=== PATIENT | male | born 1965 | race Caucasian/White ===

== ENCOUNTER → 2016-11-11 | Outpatient (CLI) | payer OTHER ==
[~2016-11-11] MED LIST: BACL20TA PO; CEPH500C PO; CHOL1CAP57 PO; CMD5 PO; DTR5 PO; LRS20 PO; MIRA1TAB3 PO; MULT-506 PO; NF656 TOP; NYST100010 TOP; OXYB5TAB74 PO; OXYC-57 PO; PRLSR20 PO; SIMV20TA2 PO; SULF800T23 PO; WARF5TAB7 PO; ZNTT/150 PO; [UNRECOGNIZED DRUG - OTHER]
[2016-11-11 12:24] LABS: BASO % 0.1 %; BASO ABS # 0.01 K/uL (0-0.2); COMPLETE YES; HEMATOCRIT 42.3 % (42-52); IG% 0.2 %; LYMPH % 24.7 %; LYMPH ABS # 2.39 K/uL (1.2-3.4); MEAN CELL VOLUME 93.2 fL (80-100); MEAN CORPUSCULAR HEMOGLOBIN 32.8 pg (25-34); MEAN CORPUSCULAR HGB CONC 35.2 g/dl (32-36); MONO % 6.9 %; NEUT % 65.1 %; PLATELET COUNT 239 K/uL (130-400); RED BLOOD COUNT 4.54 M/uL (4.7-6.1); WHITE BLOOD COUNT 9.68 K/uL (4.8-10.8)
[2016-11-11 12:38] LABS: INR 1.8 (0.9-1.1); PROTHROMBIN TIME (PATIENT) 19.7 SECONDS (9.0-12.0)
[2016-11-11 12:50] LABS: ALT/SGPT 34 U/L (12-78); AST/SGOT 14 U/L (15-37); BLOOD UREA NITROGEN 13 mg/dl (7-18); BUN/CREATININE RATIO 17.7 (10-20); CARBON DIOXIDE 25 mmol/L (21-32); CHLORIDE 106 mmol/L (98-107); CREATININE 0.71 mg/dl (0.60-1.40); GLUCOSE 79 mg/dl (70-99); POTASSIUM 3.9 mmol/L (3.5-5.1); SODIUM 140 mmol/L (136-145)
[2016-11-11 12:55] LABS: ALB/GLOB RATIO 1.1 (0.9-2); ALKALINE PHOSPHATASE 77 U/L (45-117); CHOLESTEROL 133 mg/dl (0-200); HDL CHOLESTEROL 44 mg/dl; LDL CHOLESTEROL CALCULATED 60 mg/dl; TRIGLYCERIDES 144 mg/dl (0-150); VERY LOW DENSITY LIPOPROT CALC 29 mg/dl
--- NOTE | 2016-11-15 12:19 | CODING QUERY MEDICAL NECESSITY ---
SUPPORTING DIAGNOSIS NEEDED A supporting diagnosis is required for the test/procedure performed on this patient in order for us to be reimbursed by the patient's insurance. Please provide a supporting diagnosis for the following test/procedure listed below next to the test name along with your signature. *If there is no additional diagnosis for this patient that would support the following test/procedure please document that below next to the test/procedure. Test(s)/Procedure(s) that require a supporting diagnosis: * VITAMIN D 25 HYDROXY DIAGNOSIS: * DOS: 11/11/16 Provider Signature: Date: Thank you Geena Scott Health Information Management Once completed, please kindly fax back to [phone] For questions please call [phone]
== END | disposition home or self-care (01) ==
LOC: C.LABBFT 11:02
PROVIDERS: ATTEND Internal Medicine
DX: E78.5 Hyperlipidemia, unspecified (principal); N31.9 Neuromuscular dysfunction of bladder, unspecified; Z12.5 Encounter for screening for malignant neoplasm of prostate; G82.20 Paraplegia, unspecified; Z11.59 Encounter for screening for other viral diseases; Z79.01 Long term (current) use of anticoagulants

== ENCOUNTER 2017-01-02 14:09 | Emergency (ER) | payer OTHER ==
[~2017-01-02] VITALS: Ht 167.6 cm; Wt 87.2 kg
[~2017-01-02 14:09] MED LIST changes: -BACL20TA PO; -CEPH500C PO; -MIRA1TAB3 PO; -NF656 TOP; -NYST100010 TOP; -OXYB5TAB74 PO; -OXYC-57 PO; -SULF800T23 PO; -WARF5TAB7 PO
[2017-01-02 14:23] VITALS: TEMP 36.7; Ht 167.6 cm; Wt 87.2 kg
[2017-01-02] MEDS ORDERED: WARF5TAB7 PO (14:46)
[2017-01-02] MEDS ORDERED: BACL20TA PO (14:46)
[2017-01-02] MEDS ORDERED: MIRA1TAB3 PO (14:46)
[2017-01-02 14:49] LABS: BASO % 0.1 %; BASO ABS # 0.01 K/uL (0-0.2); COMPLETE YES; EOS % 5.2 %; HEMATOCRIT 42.3 % (42-52); IG% 0.2 %; LYMPH % 29.4 %; LYMPH ABS # 2.64 K/uL (1.2-3.4); MEAN CELL VOLUME 91.4 fL (80-100); MEAN CORPUSCULAR HEMOGLOBIN 32.6 pg (25-34); MEAN CORPUSCULAR HGB CONC 35.7 g/dl (32-36); MEAN PLATELET VOLUME 9.9 fL (7.4-10.4); MONO % 8.2 %; NEUT % 56.9 %; PLATELET COUNT 237 K/uL (130-400); RED BLOOD COUNT 4.63 M/uL (4.7-6.1); WHITE BLOOD COUNT 8.98 K/uL (4.8-10.8)
--- NOTE | 2017-01-02 15:11 | DIAGNOSTIC IMAGING REPORT ---
ABDOMEN AND PELVIS CT WITHOUT CONTRAST CT DOSE: 708.72 mGy.cm HISTORY: Nephrocalcinosis. Flank flank pain low abdominal pain, indwelling Poley, prior stones TECHNIQUE: Multiaxial CT images of the abdomen and pelvis were performed without contrast. COMPARISON STUDY: 02/18/2012 FINDINGS: Lung bases are clear. Liver spleen and pancreas are unremarkable. Kidney show cortical scarring bilaterally but with moderate atrophic change of the left. Inferior vena caval filter is present. The prongs are extraluminal. This is unchanged. Bowel pattern is considered nonobstructive. Mcclure catheter is present within a collapsed bladder. There are multiple bladder calculi measuring from 1.2 to 1.7 cm. IMPRESSION: 1. Multiple bladder calculi. 2. Otherwise no acute process of the abdomen or pelvis. Electronically signed by: Adithya Vizcarra M.D. 01/02/2017 3:10 PM Dictated Date/Time: 01/02/2017 3:07 PM
[2017-01-02 15:15] LABS: BUN/CREATININE RATIO 15.8 (10-20); CREATININE 0.72 mg/dl (0.60-1.40); POTASSIUM 4.4 mmol/L (3.5-5.1)
[2017-01-02] MEDS ORDERED: SODIUM CHLORIDE 0.9% 1000ML 1,000 ML IV STA (15:27)
[2017-01-02 17:25] LABS: URINE APPEARANCE CLOUDY (CLEAR); URINE BILIRUBIN NEG (NEG); URINE COLOR YELLOW; URINE EPITHELIAL CELL AUTO >30 /lpf (0-5); URINE NITRITE POS (NEG); URINE PH 6.5 (4.5-7.5); UROBILINOGEN NEG (NEG)
[2017-01-02 17:33] LABS: MANUAL MICROSCOPIC REQUIRED? NO; REVIEW REQ? NO
[2017-01-02] MEDS ORDERED: CEFTRIAXONE SOD INJ 1 GM ADDVIAL IV STA (17:40)
[2017-01-02 17:56] LABS: PROTHROMBIN TIME (PATIENT) 22.1 SECONDS (9.0-12.0)
[2017-01-02] MEDS ORDERED: MoRPHine SULFATE 4 MG/ML 1 ML CARP\\VIAL IV STA (18:29)
[2017-01-02] MEDS ORDERED: ONDANSETRON INJ 2 MG/ML 2 ML VIAL IV STA (18:29)
[2017-01-02] MEDS ORDERED: CEPH500C PO (19:24)
[2017-01-02] MEDS ORDERED: OXYCODONE IR HOME PACK PO ONE (19:30)
[2017-01-02 21:10] VITALS: BP 123/75; PULSE 72; O2SAT 94
--- NOTE | 2017-01-02 22:00 | EMERGENCY ROOM VISIT NOTE ---
History Report prepared by Gabriela: Mingo Swenson Under the Supervision of: Dr. Pradeep Thomas M.D. First contact with patient: 14:28 Chief Complaint: ABDOMINAL PAIN Stated Complaint: ABD PAIN Nursing Triage Summary: Patient arrived via EMS. Patient c/o LLQ pain /pressure x 2 days, increases when he drinks and when sitting up in his wheelchair. Pt states he also gets sweaty when in his wc.Patient states his urine in his catheter has had a foul smell. Patient states almost two weeks ago when he changed his catheter the urine was bloody and there was dseciment in it for 3 or 4 hours, but then it cleared up. Hx bladder stones. History of Present Illness The patient is a 51 year old male who presents to the Emergency Room via EMS with complaints of persistent left-lower quadrant abdominal pain that started around 3 days ago. The patient has a catheter through his penis due to a C5/C6 spinal cord injury. The patient says that when sitting up, his pain is worsened and he sweats profusely. He states that he occasionally has been getting a "ringing headache", but he currently does not have one. He does have a history of bladder infections. The patient had his catheter changed 2 weeks ago, and he tries to get it changed every 4 weeks. He notes that he does get sediment buildup. The patient has a history of bladder stones. Pt denies LOC, fevers, chills, visual changes, neck pain, chest pain, breathing difficulties, nausea, vomiting, back pain, melena, hematochezia, numbness, weakness, lymphadenopathy, rash, or other complaints. Source of History: patient Onset: 3 days ago Position: abdomen (LLQ) Timing: other (persistent) Modifying Factors (Worsening): other (sitting up) Associated Symptoms: + diaphoresis, + headache Note: No other associated symptoms noted. Review of Systems See HPI for pertinent positives and negatives. A total of ten systems were reviewed and were otherwise negative. Past Medical & Surgical Medical Problems: (1) Autonomic Dysreflexia (2) Bladder Calculus Nec (3) Calculus Of Kidney (4) Cervical Disc Displacmnt (5) Depressive Disorder Nec (6) Hyperlipidemia Nec/Nos (7) Paraplegia Nos (8) Personal History Of Pulmonary Embolism (9) Quadriplegia, Unspecified (10) Renal Sclerosis Nos (11) Unilat Inguinal Hernia Family History No pertinent family history Social History Smoking Status: Current Every Day Smoker Drug Use: none Marital Status: in relationship Housing Status: lives with significant other Occupation Status: disabled Current/Historical Medications Scheduled Baclofen (Lioresal), 3 TAB PO BID Cephalexin Monohydrate (Keflex), 500 MG PO QID Cholecalciferol (Vitamin D3), BID Mirabegron (Myrbetriq Er), 50 MG PO DAILY Multivitamin (Multivitamin), 1 TAB PO DAILY Omeprazole (Prilosec), 20 MG PO BID Ranitidine (Zantac), 1 TAB PO BID Simvastatin (Zocor), 20 MG PO QPM Warfarin Sod (Jantoven), 5 MG PO DAILY Allergies Coded Allergies: No Known Allergies (Verified , 01/02/17) Physical Exam Vital Signs Date Time Temp Pulse Resp B/P Pulse Ox O2 Delivery O2 Flow Rate FiO2 01/02/17 21:10 72 16 123/75 94 01/02/17 18:55 67 14 123/84 92 Room Air 01/02/17 17:00 66 21 122/81 95 Room Air 01/02/17 15:58 68 01/02/17 15:27 81 16 118/76 96 Room Air 01/02/17 14:23 36.7 62 16 128/86 97 Room Air Physical Exam GENERAL: Awake, alert, well-appearing, in no distress HENT: Normocephalic, atraumatic. Oropharynx unremarkable. EYES: Normal conjunctiva. Sclera non-icteric. NECK: Supple. No nuchal rigidity. FROM. No JVD. RESPIRATORY: Clear to auscultation. CARDIAC: Regular rate, normal rhythm. Extremities warm and well perfused. Pulses equal. ABDOMEN: Soft, non-distended. Left lower abdominal tenderness. No rebound or guarding. No masses. RECTAL: Deferred. MUSCULOSKELETAL: Chest examination reveals no tenderness. The back is symmetrical on inspection without obvious abnormality. There is no CVA tenderness to palpation. No joint edema. LOWER EXTREMITIES: Calves are equal size bilaterally and non-tender. No edema. No discoloration. : Mcclure catheter in place. NEURO: Normal sensorium. Paralysis and sensory loss from inferior to umbilicus distally. SKIN: No rash or jaundice noted. Medical Decision & Procedures ER Provider Diagnostic Interpretation: CT: Radiology results as stated below per my review and radiologist interpretation ABDOMEN AND PELVIS CT WITHOUT CONTRAST CT DOSE: 708.72 mGy.cm HISTORY: Nephrocalcinosis. Flank flank pain low abdominal pain, indwelling Poley, prior stones TECHNIQUE: Multiaxial CT images of the abdomen and pelvis were performed without contrast. COMPARISON STUDY: 02/18/2012 FINDINGS: Lung bases are clear. Liver spleen and pancreas are unremarkable. Kidney show cortical scarring bilaterally but with moderate atrophic change of the left. Inferior vena caval filter is present. The prongs are extraluminal. This is unchanged. Bowel pattern is considered nonobstructive. Mcclure catheter is present within a collapsed bladder. There are multiple bladder calculi measuring from 1.2 to 1.7 cm. IMPRESSION: 1. Multiple bladder calculi. 2. Otherwise no acute process of the abdomen or pelvis. Electronically signed by: Adithya Vizcarra M.D. 01/02/2017 3:10 PM Dictated Date/Time: 01/02/2017 3:07 PM Laboratory Results 01/02/17 14:40 Red Blood Count 4.63, Mean Corpuscular Volume 91.4, Mean Corpuscular Hemoglobin 32.6, Mean Corpuscular Hemoglobin Concent 35.7, Mean Platelet Volume 9.9, Neutrophils (%) (Auto) 56.9, Lymphocytes (%) (Auto) 29.4, Monocytes (%) (Auto) 8.2, Eosinophils (%) (Auto) 5.2, Basophils (%) (Auto) 0.1, Neutrophils # (Auto) 5.10, Lymphocytes # (Auto) 2.64, Monocytes # (Auto) 0.74, Eosinophils # (Auto) 0.47, Basophils # (Auto) 0.01 01/02/17 14:40 Test 01/02/17 14:40 01/02/17 17:00 White Blood Count 8.98 K/uL (4.8-10.8) Red Blood Count 4.63 M/uL (4.7-6.1) Hemoglobin 15.1 g/dL (14.0-18.0) Hematocrit 42.3 % (42-52) Mean Corpuscular Volume 91.4 fL (80-100) Mean Corpuscular Hemoglobin 32.6 pg (25-34) Mean Corpuscular Hemoglobin Concent 35.7 g/dl (32-36) Platelet Count 237 K/uL (130-400) Mean Platelet Volume 9.9 fL (7.4-10.4) Neutrophils (%) (Auto) 56.9 % Lymphocytes (%) (Auto) 29.4 % Monocytes (%) (Auto) 8.2 % Eosinophils (%) (Auto) 5.2 % Basophils (%) (Auto) 0.1 % Neutrophils # (Auto) 5.10 K/uL (1.4-6.5) Lymphocytes # (Auto) 2.64 K/uL (1.2-3.4) Monocytes # (Auto) 0.74 K/uL (0.11-0.59) Eosinophils # (Auto) 0.47 K/uL (0-0.5) Basophils # (Auto) 0.01 K/uL (0-0.2) RDW Standard Deviation 43.3 fL (36.4-46.3) RDW Coefficient of Variation 13.0 % (11.5-14.5) Immature Granulocyte % (Auto) 0.2 % Immature Granulocyte # (Auto) 0.02 K/uL (0.00-0.02) Prothrombin Time 22.1 SECONDS (9.0-12.0) Prothromb Time International Ratio 2.0 (0.9-1.1) Anion Gap 6.0 mmol/L (3-11) Est Creatinine Clear Calc Drug Dose 122.7 ml/min Estimated GFR () 123.4 Estimated GFR (Non- 106.5 BUN/Creatinine Ratio 15.8 (10-20) Calcium Level 9.0 mg/dl (8.5-10.1) Total Bilirubin 0.5 mg/dl (0.2-1) Direct Bilirubin 0.1 mg/dl (0-0.2) Aspartate Amino Transf (AST/SGOT) 20 U/L (15-37) Alanine Aminotransferase (ALT/SGPT) 34 U/L (12-78) Alkaline Phosphatase 81 U/L (45-117) Total Protein 7.5 gm/dl (6.4-8.2) Albumin 3.9 gm/dl (3.4-5.0) Lipase 282 U/L (73-393) Urine Color YELLOW Urine Appearance CLOUDY (CLEAR) Urine pH 6.5 (4.5-7.5) Urine Specific [place] 1.020 (1.000-1.030) Urine Protein TRACE (NEG) Urine Glucose (UA) NEG (NEG) Urine Ketones TRACE (NEG) Urine Occult Blood 1+ (NEG) Urine Nitrite POS (NEG) Urine Bilirubin NEG (NEG) Urine Urobilinogen NEG (NEG) Urine Leukocyte Esterase LARGE (NEG) Urine WBC (Auto) >30 /hpf (0-5) Urine RBC (Auto) 5-10 /hpf (0-4) Urine Hyaline Casts (Auto) 5-10 /lpf (0-5) Urine Epithelial Cells (Auto) >30 /lpf (0-5) Urine Bacteria (Auto) 4+ (NEG) Laboratory results reviewed by me Medications Administered Medications (Trade) Dose Ordered Sig/Yoandy Route Start Time Stop Time Status Last Admin Dose Admin Sodium Chloride (Nss 1000ml) 1,000 ml @ 999 mls/hr Q1H1M STAT IV 01/02/17 15:27 01/02/17 16:27 DC 01/02/17 15:41 999 MLS/HR Ceftriaxone Sodium (Rocephin Inj) 1 gm NOW STAT IV 01/02/17 17:40 01/02/17 17:41 DC 01/02/17 18:20 1 GM Oxycodone HCl (Roxicodone Immediate Rel 5MG Home Pack) 1 homepack UD ONCE PO 01/02/17 19:30 01/02/17 19:31 DC 01/02/17 19:30 1 HOMEPACK ED Course 1434: The patient was evaluated in room B8. A complete history and physical exam was performed. 1527: Ordered NSS 1000 ml @ 999 mls/hr IV. 1621: I reevaluated the patient and she dos not want anything for pain. 1740: Ordered Rocephin Inj 1 gm IV. 174: I reevaluated the patient and she is doing pretty well. She is getting IV Rocephin. Discussed results and discharge instructions: She verbalized understanding and agreement. The patient is ready for discharge. 1829: Ordered Zofran Inj 4 mg IV, Morphine Sulfate Inj 4 mg IV 0: Ordered Roxicodone Immediate Rel 5MG Home Pack 1 homepack PO. Medical Decision Triage Nursing notes reviewed. The patient's presentation and history were concerning for abdominal pain and indwelling catheter. Etiologies such as appendicitis, diverticulitis, obstruction, inflammatory bowel disease, renal colic, PUD, biliary pathology, pancreatitis, mesenteric ischemia, aortic pathology, infections, genitourinary, UTI, perforated viscus, as well as others were entertained. The patient was evaluated. Clinically he was doing well. His symptoms had improved dramatically with that intervention. The patient was hydrated. His CBC, chemistry, LFTs and lipase were unremarkable. Urinalysis was concerning for infection. Urinalysis was obtained after his old catheter was removed and a fresh catheter was placed. The patient was then hydrated and urine specimen was obtained and sent to the lab. Because of this he was given IV Rocephin. The patient noted some discomfort and requested analgesia. He is given 4 mg of Zofran 4 mg of morphine. He felt better with this. The patient has had numerous urinary infections in the past. It appears that cephalexin should be adequate to cover his issues and will least likely interfere with his INR. Patient will need close outpatient follow-up. He feels very comfortable going home. If he worsens in any way she will come back to emergency department for reevaluation. By the evaluation outlined above other emergent etiologies such as those listed in the differential, as well as others, were deemed relatively unlikely. The patient was informed about the findings as listed above. All questions were answered and he was pleased with the treatment. Return instructions were outlined and the patient was discharged in stable condition. The patient was referred to his PCP and urologist for follow-up for a recheck of the current condition. The chart was completed utilizing [employer] Speech voice recognition software. Grammatical errors, random word insertions, pronoun errors, and incomplete sentences are an occasional consequence of this system due to software limitations, ambient noise, and hardware issues. Any formal questions or concerns about the content, text, or information contained within the body of this dictation should be directly addressed to the physician for clarification. Impression Primary Impression: Lower abdominal pain Additional Impression: UTI (urinary tract infection) Scribe Attestation The scribe's documentation has been prepared under my direction and personally reviewed by me in its entirety. I confirm that the note above accurately reflects all work, treatment, procedures, and medical decision making performed by me. Departure Information Dispostion Home / Self-Care Prescriptions Cephalexin Monohydrate (Keflex) 500 Mg Cap 500 MG PO QID, #28 CAP Prov: Pradeep Thomas MD 01/02/17 Referrals Talon Verduzco M.D. (PCP) Harlan Campbell MD Forms Call Back Authorization, HOME CARE DOCUMENTATION FORM, IMPORTANT VISIT INFORMATION Patient Instructions [facility] Additional Instructions ABDOMINAL PAIN INSTRUCTIONS: DO NOT drive, drink alcohol, operate machinery, or perform dangerous activities today. You were given medications in the ER that can affect your ability to safely function or operate a vehicle. Oxycodone (OxyIR) 5mg: Take 1-2 pills every four hours as needed for breakthrough pain. Avoid alcohol, operating machinery or dangerous equipment, working on ladders or roofs, DRIVING, or situations where being under the influence may be dangerous. It is recommended to use a stool softener such as Colace, 100mg twice daily while taking this medication to avoid constipation. Ibuprofen(Motrin, Advil) may be used for fever or pain. Use 600mg every six hours as needed. Take with food. Avoid using more than 2400mg in a 24 hour period. Do not use 2400mg per day for more than three consecutive days without physician direction. Prolonged inappropriate use can lead to stomach upset or ulcers. (AND/OR) Acetaminophen(Tylenol) may be used for fever or pain. Use 1000mg every six hours as needed. Avoid using more than 4000mg in a 24 hour period. Cephalexin(Keflex) 500mg: Take one pill four times daily for 7 days for your urine infection. All antibiotics can cause diarrhea. If this occurs and you feel worse or it does not resolve in 1-2 days follow up with your doctor or return to the Emergency Department as this could be signs of serious underlying problems. Any medication can cause an allergic reaction, stop the pills immediately and return to the ER for rash, hives, breathing difficulties, or swelling. Rest and drink plenty of fluids as tolerated. Slow sips of water or sports drinks are recommended instead of large amounts all at once. Continue current medications. Once your stomach is settled start with a clear liquid diet (jello, soup broth, etc.) and then advance as tolerated. You should avoid full, heavy meals for about 24 hrs from the time your symptoms resolved. Return to the ER immediately for worsening or persistent abdominal pain, vomiting, fevers, chest pains, difficulty breathing, black or bloody stools, worsening of your condition, or as needed. Follow up with your primary physician or urologist tomorrow for a recheck of your current condition. Problem Qualifiers
[2017-01-22] MEDS ORDERED: OXYC-57 PO (09:09)
[2017-01-22] MEDS ORDERED: NYST100010 TOP (09:09)
[2017-01-22] MEDS ORDERED: NF656 TOP (09:09)
[2017-02-04] MEDS ORDERED: OXYC-57 PO (13:10)
== END 2017-01-02 21:10 | disposition home or self-care (01) ==
LOC: EDBD 14:09 → C.EDB 14:10
DX: R10.32 Left lower quadrant pain (principal); N39.0 Urinary tract infection, site not specified; Z86.711 Personal history of pulmonary embolism; G82.20 Paraplegia, unspecified; E78.5 Hyperlipidemia, unspecified

== ENCOUNTER → 2017-01-23 | Outpatient (CLI) | payer OTHER ==
[~2017-01-23] MED LIST changes: +BACL20TA PO; +CEPH500C PO; -CMD5 PO; -DTR5 PO; -LRS20 PO; +MIRA1TAB3 PO; +NF656 TOP; +NYST100010 TOP; +OXYB5TAB74 PO; +OXYC-57 PO; +SULF800T23 PO; +WARF5TAB7 PO; -[UNRECOGNIZED DRUG - OTHER]
== END | disposition home or self-care (01) ==
LOC: C.LABSPEC 16:50
PROVIDERS: ATTEND Nurse Practitioner Family
DX: N39.0 Urinary tract infection, site not specified (principal)

== ENCOUNTER 2017-02-04 10:03 | Day surgery (SDC) | payer OTHER ==
[2017-01-22 09:12] VITALS: BMI 27.0
--- NOTE | 2017-01-22 09:46 | PAT Medication Instructions ---
Service Date Jan 22, 2017. Current Home Medication List Baclofen (Lioresal), 3 TAB PO BID Cholecalciferol (Vitamin D3), 1,000 UNITS PO BID Lidocaine (Lidoderm Patch 5%), 1 DOSE TOP PRN Mirabegron (Myrbetriq Er), 50 MG PO HS Multivitamin (Multivitamin), 1 TAB PO QAM Nystatin (Topical) (Nystop), 1 DOSE TOP BID PRN for RN Omeprazole (Prilosec), 20 MG PO BID Oxycodone/Acetaminophen 5MG/325MG (Percocet 5MG/325MG), 1-2 TABLETS PO Q4-6H PRN for Pain Ranitidine (Zantac), 1 TAB PO BID Simvastatin (Zocor), 20 MG PO QPM Warfarin Sod (Jantoven), 5 MG PO QPM Medication Instructions For Your Scheduled Surgery -Instructions per prescribing physician: Warfarin Sod (Jantoven), 5 MG PO QPM *Last dose to be 01/27/17* - Continue as directed: Lidocaine (Lidoderm Patch 5%), 1 DOSE TOP PRN - Hold the following medications 24 hours prior to surgery: Nystatin (Topical) (Nystop), 1 DOSE TOP BID PRN for RN - Hold the following medications the morning of surgery: Cholecalciferol (Vitamin D3), 1,000 UNITS PO BID Multivitamin (Multivitamin), 1 TAB PO QAM - Take the following medications the morning of surgery with a sip of water OTHERWISE NOTHING TO EAT OR DRINK AFTER MIDNIGHT: Ranitidine (Zantac), 1 TAB PO BID Baclofen (Lioresal), 3 TAB PO BID Omeprazole (Prilosec), 20 MG PO BID Oxycodone/Acetaminophen 5MG/325MG (Percocet 5MG/325MG), 1-2 TABLETS PO Q4-6H PRN for Pain (may take if needed up to 4 hours prior to surgery) - Take the following medications as scheduled the night before surgery: Ranitidine (Zantac), 1 TAB PO BID Baclofen (Lioresal), 3 TAB PO BID Omeprazole (Prilosec), 20 MG PO BID Cholecalciferol (Vitamin D3), 1,000 UNITS PO BID Simvastatin (Zocor), 20 MG PO QPM Mirabegron (Myrbetriq Er), 50 MG PO HS Oxycodone/Acetaminophen 5MG/325MG (Percocet 5MG/325MG), 1-2 TABLETS PO Q4-6H PRN for Pain If you have any questions please call us at [phone] or [phone] or [phone]
[2017-01-22 10:24] LABS: BASO % 0.1 %; BASO ABS # 0.01 K/uL (0-0.2); COMPLETE YES; EOS % 4.2 %; HEMATOCRIT 42.8 % (42-52); IG% 0.3 %; LYMPH % 29.5 %; LYMPH ABS # 2.31 K/uL (1.2-3.4); MEAN CELL VOLUME 92.6 fL (80-100); MEAN CORPUSCULAR HEMOGLOBIN 33.1 pg (25-34); MEAN CORPUSCULAR HGB CONC 35.7 g/dl (32-36); MEAN PLATELET VOLUME 10.6 fL (7.4-10.4); MONO % 6.9 %; PLATELET COUNT 231 K/uL (130-400); RED BLOOD COUNT 4.62 M/uL (4.7-6.1); WHITE BLOOD COUNT 7.84 K/uL (4.8-10.8)
--- NOTE | 2017-01-22 10:26 | DIAGNOSTIC IMAGING REPORT ---
TWO VIEW CHEST CLINICAL HISTORY: Preoperative examination. FINDINGS: AP and lateral chest radiographs are compared to study dated 05/16/2014. The AP view is significantly degraded by patient rotation. The heart is top normal for projection. The pulmonary vasculature is noncongested. Chronic interstitial thickening is unchanged. Emphysema is suspected. There is no airspace consolidation or pleural effusion. There is no pneumothorax. The skeletal structures appear osteopenic. Degenerative change is noted throughout the thoracic spine. Fusion hardware is noted in the lower cervical region. IMPRESSION: Suspect emphysema. There is no active disease in the chest. Electronically signed by: Denys House M.D. 01/22/2017 10:24 AM Dictated Date/Time: 01/22/2017 10:17 AM
[2017-01-22 10:51] LABS: MANUAL MICROSCOPIC REQUIRED? YES; URINE APPEARANCE CLOUDY (CLEAR); URINE BILIRUBIN NEG (NEG); URINE COLOR YELLOW; URINE NITRITE POS (NEG); UROBILINOGEN NEG (NEG)
[2017-01-22 10:56] LABS: BUN/CREATININE RATIO 18.1 (10-20); CALCIUM 8.8 mg/dl (8.5-10.1); CREATININE 0.71 mg/dl (0.60-1.40); POTASSIUM 4.2 mmol/L (3.5-5.1)
[2017-01-22 11:13] LABS: SULFASALICYLIC ACID NEG (NEG)
[2017-01-22 11:14] LABS: REVIEW REQ? NO
[2017-01-22 11:34] LABS: URINE BACTERIA 4+ (NEG); URINE WBC >30 /hpf (0-5)
[~2017-02-04] VITALS: Ht 167.6 cm; Wt 77.3 kg
[~2017-02-04 10:03] MED LIST changes: -CEPH500C PO; +CIPROFLOXACIN / D5W 400 MG IV SCH; +LACTATED RINGER'S 1000ML 1,000 ML IV SCH; +LACTATED RINGER'S 1000ML 500 ML IV ONE; -OXYB5TAB74 PO; -SULF800T23 PO
[2017-02-04 10:44] VITALS: BP 91/60; PULSE 67; TEMP 37.2; O2SAT 96; Ht 167.6 cm; Wt 77.3 kg
[2017-02-04 10:45] LABS: PARTIAL THROMBOPLASTIN RATIO 1.2; PROTHROMBIN TIME (PATIENT) 10.8 SECONDS (9.0-12.0)
[2017-02-04] MEDS ORDERED: ATROPINE SULFATE 0.1 MG/ML 5ML SYR IV PRN (11:15)
[2017-02-04] MEDS ORDERED: FENTANYL CITRATE INJ 50 MCG/1 ML 2 ML VIAL IV PRN (11:15)
[2017-02-04] MEDS ORDERED: EpHEDrine SULFATE INJ 50 MG/ML AMP IV PRN (11:15)
[2017-02-04] MEDS ORDERED: ONDANSETRON INJ 2 MG/ML 2 ML VIAL IV PRN (11:15)
[2017-02-04] MEDS ORDERED: DEXAMETHASONE SOD INJ 4 MG/ML VIAL ONE (11:16)
[2017-02-04] MEDS ORDERED: ONDANSETRON INJ 2 MG/ML 2 ML VIAL ONE (11:16)
[2017-02-04] MEDS ORDERED: PROPOFOL IV EMULSION 10 MG/ML 20 ML VIAL IV ONE (11:16)
[2017-02-04] MEDS ORDERED: LIDOCAINE HCL 2% 2 ML VIAL (20MG/ML) ONE (11:16)
[2017-02-04] MEDS ORDERED: MIDAZOLAM HCL 1 MG/ML 2ML VIAL ONE (11:16)
[2017-02-04] MEDS ORDERED: FENTANYL CITRATE INJ 50 MCG/1 ML 2 ML VIAL ONE ×2 (11:16→12:22)
--- NOTE | 2017-02-04 11:39 | History & Physical Bridge Note ---
H&P Re-Evaluation Bridge Note: I have examined the patient, reviewed the History & Physical and in the interval since the performance of the History & Physical I have noted the following changes of clinical significance: No changes noted
[2017-02-04] MEDS ORDERED: EpHEDrine SULFATE 50MG/5ML SYR ONE (12:27)
[2017-02-04] MEDS ORDERED: LABETALOL HCL IV 5 MG/ML 20ML IV ONE (13:04)
--- NOTE | 2017-02-04 13:09 | [facility] Post Operative Brief Note ---
Immediate Operative Summary Operative Date Feb 04, 2017. Pre-Operative Diagnosis Bladder Stone Post-Operative Diagnosis Same Procedure(s) Performed Cystolithopaxy Surgeon Dr Campbell Filler Room Attendant Surgeon(s) none Estimated Blood Loss 0ML Findings 4 bladder stones Specimens NONE PER SURGEON Drains 20 f love Anesthesia gen Complication(s) None Disposition Recovery Room / PACU
[2017-02-04] MEDS ORDERED: OXYC-57 PO (13:10)
--- NOTE | 2017-02-04 13:12 | Discharge Instructions ---
Discharge Instructions Date of Service Feb 04, 2017. Visit Reason for Visit: Bladder Stone Discharge Discharge Diagnosis / Problem: Bladder Stones Discharge Goals Goal(s): Therapeutic intervention Activity Recommendations Activity Limitations: resume your previous activity (take it easy today) Anesthesia . Post Anesthesia Instructions: If you have had General Anesthesia or IV Sedation: * Do not drive today. * Resume driving when surgeon permits. * Do not make important decisions or sign legal documents today. * Call surgeon for: 1. Temperature elevations greater than 101 degrees F. 2. Uncontrollable pain. 3. Excessive bleeding. 4. Persistent nausea and vomiting. 5. Medication intolerance (nausea, vomiting or rash). * For nausea and vomiting use only clear liquids such as: tea, soda, bouillon until nausea subsides, then gradually increase diet as tolerated. * If you have any concerns or questions, call your surgeon's office. If physician is unavailable and it is an emergency, call 911 or go to the nearest emergency room. . Diet Recommendations Recommended Home Diet: resume previous diet Procedures Procedures Performed: Cystolithopaxy Pending Studies Studies pending at discharge: no Medical Emergencies . Who to Call and When: Medical Emergencies: If at any time you feel your situation is an emergency, please call 911 immediately. . Non-Emergent Contact Non-Emergency issues call your: Urologist . . "Provider Documentation" section prepared by Harlan Campbell. [place] Drug Monitoring Program Search Results: patient reviewed within database
[2017-02-04] MEDS ORDERED: OXYCODONE/ACETAMINOPHEN 5-325 TAB PO PRN (13:15)
--- NOTE | 2017-02-04 13:44 | Anesthesiology Progress Note ---
Anesthesia Post Op Note Date & Time Feb 04, 2017 at 13:43 Vital Signs Pain Intensity: 0 Vital Signs Past 12 Hours Date Time Temp Pulse Resp B/P Pulse Ox O2 Delivery O2 Flow Rate FiO2 02/04/17 13:40 71 17 128/76 94 Room Air 02/04/17 13:30 72 19 111/76 96 Mask 10 02/04/17 13:20 71 13 122/75 95 Mask 10 02/04/17 13:10 36.3 69 11 112/75 96 Mask 10 02/04/17 10:44 37.2 67 18 91/60 96 Room Air Notes Mental Status: alert / awake / arousable, participated in evaluation Pt Amnestic to Procedure: Yes Nausea / Vomiting: adequately controlled Pain: adequately controlled Airway Patency, RR, SpO2: stable & adequate BP & HR: stable & adequate Hydration State: stable & adequate Anesthetic Complications: no major complications apparent
[2017-02-04 13:55] VITALS: BP 98/64; PULSE 73; TEMP 36.9; O2SAT 94
--- NOTE | 2017-02-04 13:58 | OPERATIVE REPORT ---
DATE OF OPERATION: 02/04/2017 PREOPERATIVE DIAGNOSIS: Bladder stones. POSTOPERATIVE DIAGNOSIS: Same. PROCEDURE: Cystolitholapaxy. FINDINGS: Cystoscopic exam revealed normal anterior urethra. Prostatic fossa was open. Bladder showed a lot of edema from stones and the patient's chronic indwelling Mcclure there were 4 stones in the bladder. SURGEON: Dr. Harlan Campbell. ANESTHESIA: General. DRAINS: 20-Iranian Mcclure catheter in bladder. COMPLICATIONS: None. SPECIMENS: Stone fragments, which were not sent to pathology. INDICATIONS: The patient is a 52-year-old paraplegic male who has a chronic indwelling Mcclure. He recently had some suprapubic pain and increase in his bladder spasms, workup including imaging studies revealed multiple bladder stones and he is being brought in for cystolitholapaxy. PROCEDURE: After the induction of an adequate general anesthetic and appropriate time-out, the patient was placed in the dorsal lithotomy position. Lower abdomen and genitalia were prepped with Hibiclens and draped in a sterile fashion. Using a 22-Iranian cystoscope, routine cystoscopic exam was performed with the above noted findings with the 30 and 70 degree lenses. Next, using a 24-Iranian resection sheath and 1000 micron fiber, the stones were broken into multiple small pieces. These were then evacuated from the bladder with an [employer] evacuator. Care was taken to avoid injury to the bladder itself. After removing all of the stone fragments, the bladder was reinspected with the 30 and 70 degree lenses. There were no stone fragments remaining. The patient's bladder was then filled. Resection scope and sheath were removed. A 20-Iranian Mcclure catheter inserted per urethra into the bladder and hooked to gravity drainage. All needle, sponge and instrument counts were correct at the end of the case. The patient tolerated the procedure well and went to the recovery room in stable condition. I attest to the content of the Intraoperative Record and any orders documented therein. Any exceptio ns are noted below.
[2017-02-04 14:25] VITALS: BP 121/79; PULSE 62; O2SAT 95
[2017-02-04 14:55] VITALS: BP 103/73; PULSE 70; O2SAT 95
[2017-07-18] MEDS ORDERED: DTR/5 PO (15:55)
== END 2017-02-04 15:15 | disposition home or self-care (01) ==
LOC: C.ACU 10:03
PROVIDERS: ATTEND Urology
DX: N21.0 Calculus in bladder (principal); K21.9 Gastro-esophageal reflux disease without esophagitis; E78.5 Hyperlipidemia, unspecified; F32.9 Major depressive disorder, single episode, unspecified; I26.99 Other pulmonary embolism without acute cor pulmonale; G82.20 Paraplegia, unspecified

== ENCOUNTER → 2017-04-11 | Outpatient (CLI) | payer OTHER ==
[~2017-04-11] MED LIST changes: +CEPH500C PO; -CIPROFLOXACIN / D5W 400 MG IV SCH; +DTR/5 PO; -LACTATED RINGER'S 1000ML 1,000 ML IV SCH; -LACTATED RINGER'S 1000ML 500 ML IV ONE; +SULF800T23 PO
[2017-04-11 12:10] LABS: INR 2.5 (0.9-1.1); PROTHROMBIN TIME (PATIENT) 27.6 SECONDS (9.0-12.0)
== END | disposition home or self-care (01) ==
LOC: C.LABBFT 07:50
PROVIDERS: ATTEND Internal Medicine
DX: I26.99 Other pulmonary embolism without acute cor pulmonale (principal)

== ENCOUNTER 2017-07-18 15:20 | Emergency (ER) | payer OTHER ==
[~2017-07-18] VITALS: Ht 167.6 cm; Wt 89.2 kg
[~2017-07-18 15:20] MED LIST changes: -CEPH500C PO; -DTR/5 PO; -SULF800T23 PO
[2017-07-18 15:27] VITALS: TEMP 36.8; Ht 167.6 cm; Wt 89.2 kg
[2017-07-18] MEDS ORDERED: SODIUM CHLORIDE 0.9% 500ML 500 ML IV STA (15:43)
--- NOTE | 2017-07-18 15:52 | EMERGENCY ROOM VISIT NOTE ---
History First contact with patient: 15:29 Chief Complaint: EDEMA TO EXTREMITY Stated Complaint: LEG EDEMA, AB PAIN History of Present Illness The patient is a 52 year old male who presents to the Emergency Room with complaints of left lower extremity redness and swelling for the last 2 days. The patient has a history of paraplegia. He also has a history of blood clots. He does however note and injury to the outside of his left foot during a wheel chair transfer. He denies any fever or chills. He has had a decreased appetite, which he associates with infection. He denies any chest pain or shortness of breath. Review of Systems 10 system review performed and negative unless noted in HPI or below Past Medical/Surgical History Medical Problems: (1) Autonomic Dysreflexia (2) Bladder Calculus Nec (3) Calculus Of Kidney (4) Cervical Disc Displacmnt (5) Depressive Disorder Nec (6) Hyperlipidemia Nec/Nos (7) Paraplegia Nos (8) Personal History Of Pulmonary Embolism (9) Quadriplegia, Unspecified (10) Renal Sclerosis Nos (11) Unilat Inguinal Hernia Family History No pertinent family history Social History Smoking Status: Current Every Day Smoker Drug Use: none Marital Status: in relationship Housing Status: lives with significant other Occupation Status: disabled Current/Historical Medications Scheduled Baclofen (Lioresal), 60 MG PO BID Cephalexin Monohydrate (Keflex), 500 MG PO QID Cholecalciferol (Vitamin D3), 1,000 UNITS PO BID Lidocaine (Lidoderm Patch 5%), 1 DOSE TOP PRN Omeprazole (Prilosec), 20 MG PO BID Oxybutynin Chloride (Ditropan), 10 MG PO BID Ranitidine (Zantac), 1 TAB PO BID Simvastatin (Zocor), 20 MG PO QPM Sulfa/Trimethoprim (Bactrim Ds 800MG/160MG), 1 TAB PO BID Warfarin Sod (Jantoven), 5 MG PO QPM Scheduled PRN Nystatin (Topical) (Nystop), 1 DOSE TOP BID PRN for RN Physical Exam Vital Signs Date Time Temp Pulse Resp B/P (MAP) Pulse Ox O2 Delivery O2 Flow Rate FiO2 07/18/17 18:41 68 18 107/65 96 Room Air 07/18/17 17:30 76 20 116/66 96 Room Air 07/18/17 15:31 66 07/18/17 15:27 36.8 68 18 105/70 94 Room Air Physical Exam VITALS: Vitals are noted on the nurse's note and reviewed by myself. Vital signs stable. GENERAL: 52-year-old male, in no acute distress, SKIN: 2 mm scab noted to the second toe on the left foot. No surrounding erythema.. HEAD: Normocephalic atraumatic. MOUTH: oral mucosa dry. NECK: S No JVD. HEART: Regular rate and rhythm without murmurs gallops or rubs. LUNGS: Clear to auscultation bilaterally without wheezes, rales or rhonchi. No accessory muscle use. ABDOMEN: Positive bowel sounds x 4.Soft, nontender, without organomegaly. No guarding or rebound tenderness. MUSCULOSKELETAL: +1 nonpitting edema noted in lower extremities left greater than right. Erythema noted over the left foot streaking anteriorly up the left serna to the knee. Distal pulses intact bilaterally. NEURO: Patient was alert and answering questions appropriately. No feeling in the lower extremities bilaterally. Some spastic spontaneous movement noted in the left lower extremity. Medical Decision & Procedures ER Provider Diagnostic Interpretation: Patient Name: NIKI CHOI Unit Number: [id number] Dictated: 07/18/171655 Transcribed: 07/18/171655 PBS Printed Date/Time: [~ rep prt dt]/[~ rep prt tm] [~ rep ct labl] - [~ rep ct ivnm] [facility] [place] [address] Dictated: 07/18/171655 Transcribed: 07/18/171655 PBS Printed Date/Time: [~ rep prt dt]/[~ rep prt tm] [~ rep ct labl] - [~ rep ct ivnm] VENOUS DOPPLER LWR EXT BILA CLINICAL HISTORY: 52 years-old Male presenting with BLE edema L>R. TECHNIQUE: Real-time grayscale and color and spectral Doppler ultrasound imaging of the veins of the bilateral lower extremities was performed. Compression and augmentation were also utilized. COMPARISON: None. FINDINGS: Right: Common femoral vein: Patent. Femoral vein: Patent. Greater saphenous vein: Patent. Popliteal vein: Patent. Calf veins: Limited visualization. Left: Common femoral vein: Patent. Femoral vein: Patent. Greater saphenous vein: Patent. Popliteal vein: Patent. Calf veins: Limited visualization. Other: None. IMPRESSION: No evidence of deep venous thrombosis. Electronically signed by: Dakota Montano M.D. 07/18/2017 4:57 PM Dictated Date/Time: 07/18/2017 4:56 PM The status of this report is Signed. Draft = Not yet reviewed or approved by Radiologist. Signed = Reviewed and approved by Radiologist. <AttendingPhy></AttendingPhy> <FamilyPhy>Talon Verduzco M.D.</FamilyPhy > <PrimaryPhy>Talon Verduzco M.D.</PrimaryPhy> <UnitNumber>[id number]</ UnitNumber> <VisitNumber>[id number]</VisitNumber> <PatientName>NIKI CHOI</PatientName> <DateOfBirth>1965</DateOfBirth> <Location>[facility]</Location > <ServiceDate>07/18/17</ServiceDate> <MNE>ESINDI</MNE> <OrderingPhy>Toña Law PA-C</OrderingPhy> <OrderingPhyMNE>f rep ord dr leach</OrderingPhyMNE> < DictatingPhyMNE>f rep dict dr leach</DictatingPhyMNE> <CCListMNE>f rep ct hany</ CCListMNE> <AdmittingPhyMNE>f pt admit dr leach</AdmittingPhyMNE> <AttendingPhyMNE >f pt attend dr leach</AttendingPhyMNE> <ConsultingPhyMNE>f pt consult dr leach</ConsultingPhyMNE> <FamilyPhyMNE>f pt fam dr leach</FamilyPhyMNE> <OtherPhyMNE>f pt other dr leach</OtherPhyMNE> < PrimaryPhyMNE>f pt prim care dr leach</PrimaryPhyMNE> <ReferringPhyMNE>f pt referring dr leach</ReferringPhyMNE> LEFT FOOT MIN 3 VIEWS ROUTINE CLINICAL HISTORY: Left foot pain and bruising. COMPARISON: None. DISCUSSION: The bones are markedly osteopenic. There is a mild hallux valgus deformity. No acute fractures are visualized. Mild degenerative changes are evident. There is mild dorsal soft tissue swelling. IMPRESSION: Severe osteopenia. No acute fractures or subluxations identified. Electronically signed by: Jason Nelson M.D. 07/18/2017 5:22 PM Dictated Date/Time: 07/18/2017 5:22 PM The status of this report is Signed. Draft = Not yet reviewed or approved by Radiologist. Signed = Reviewed and approved by Radiologist. <AttendingPhy></AttendingPhy> <FamilyPhy>Talon Verduzco M.D.</FamilyPhy > <PrimaryPhy>Talon Verduzco M.D.</PrimaryPhy> <UnitNumber>[id number]</ UnitNumber> <VisitNumber>[id number]</VisitNumber> <PatientName>NIKI CHOI</PatientName> <DateOfBirth>1965</DateOfBirth> <Location>C[facility]ED[facility]</Location > <ServiceDate>07/18/17</ServiceDate> <MNE>ESINDI</MNE> <OrderingPhy>Toña Law PA-C</OrderingPhy> <OrderingPhyMNE>f rep ord dr leach</OrderingPhyMNE> < DictatingPhyMNE>f rep dict dr leach</DictatingPhyMNE> <CCListMNE>f rep ct daysie</ CCListMNE> <AdmittingPhyMNE>f pt admit dr leach</AdmittingPhyMNE> <AttendingPhyMNE >f pt attend dr leach</AttendingPhyMNE> <ConsultingPhyMNE>f pt consult dr leach</ConsultingPhyMNE> <FamilyPhyMNE>f pt fam dr leach</FamilyPhyMNE> <OtherPhyMNE>f pt other dr leach</OtherPhyMNE> < PrimaryPhyMNE>f pt prim care dr leach</PrimaryPhyMNE> Laboratory Results 07/18/17 14:47 Red Blood Count 4.46, Mean Corpuscular Volume 91.7, Mean Corpuscular Hemoglobin 33.0, Mean Corpuscular Hemoglobin Concent 35.9, Mean Platelet Volume 10.7, Neutrophils (%) (Auto) 70.5, Lymphocytes (%) (Auto) 20.4, Monocytes (%) (Auto) 5.6, Eosinophils (%) (Auto) 3.2, Basophils (%) (Auto) 0.1, Neutrophils # (Auto) 8.48, Lymphocytes # (Auto) 2.45, Monocytes # (Auto) 0.67, Eosinophils # (Auto) 0.39, Basophils # (Auto) 0.01 07/18/17 14:47 Test 07/18/17 14:47 07/18/17 16:15 White Blood Count 12.03 K/uL (4.8-10.8) Red Blood Count 4.46 M/uL (4.7-6.1) Hemoglobin 14.7 g/dL (14.0-18.0) Hematocrit 40.9 % (42-52) Mean Corpuscular Volume 91.7 fL (80-100) Mean Corpuscular Hemoglobin 33.0 pg (25-34) Mean Corpuscular Hemoglobin Concent 35.9 g/dl (32-36) Platelet Count 276 K/uL (130-400) Mean Platelet Volume 10.7 fL (7.4-10.4) Neutrophils (%) (Auto) 70.5 % Lymphocytes (%) (Auto) 20.4 % Monocytes (%) (Auto) 5.6 % Eosinophils (%) (Auto) 3.2 % Basophils (%) (Auto) 0.1 % Neutrophils # (Auto) 8.48 K/uL (1.4-6.5) Lymphocytes # (Auto) 2.45 K/uL (1.2-3.4) Monocytes # (Auto) 0.67 K/uL (0.11-0.59) Eosinophils # (Auto) 0.39 K/uL (0-0.5) Basophils # (Auto) 0.01 K/uL (0-0.2) RDW Standard Deviation 43.5 fL (36.4-46.3) RDW Coefficient of Variation 12.9 % (11.5-14.5) Immature Granulocyte % (Auto) 0.2 % Immature Granulocyte # (Auto) 0.03 K/uL (0.00-0.02) Anion Gap 4.0 mmol/L (3-11) Est Creatinine Clear Calc Drug Dose 126.2 ml/min Estimated GFR () 124.0 Estimated GFR (Non- 107.0 BUN/Creatinine Ratio 10.1 (10-20) Calcium Level 8.9 mg/dl (8.5-10.1) Total Bilirubin 0.4 mg/dl (0.2-1) Aspartate Amino Transf (AST/SGOT) 17 U/L (15-37) Alanine Aminotransferase (ALT/SGPT) 26 U/L (12-78) Alkaline Phosphatase 88 U/L (45-117) Total Protein 7.3 gm/dl (6.4-8.2) Albumin 3.8 gm/dl (3.4-5.0) Globulin 3.5 gm/dl (2.5-4.0) Albumin/Globulin Ratio 1.1 (0.9-2) Urine Color YELLOW Urine Appearance TURBID (CLEAR) Urine pH 5.5 (4.5-7.5) Urine Specific [place] 1.016 (1.000-1.030) Urine Protein 1+ (NEG) Urine Glucose (UA) NEG (NEG) Urine Ketones NEG (NEG) Urine Occult Blood 3+ (NEG) Urine Nitrite POS (NEG) Urine Bilirubin NEG (NEG) Urine Urobilinogen NEG (NEG) Urine Leukocyte Esterase LARGE (NEG) Urine WBC (Auto) >30 /hpf (0-5) Urine RBC (Auto) >30 /hpf (0-4) Urine Hyaline Casts (Auto) 0 /lpf (0-5) Urine Epithelial Cells (Auto) 10-20 /lpf (0-5) Urine Bacteria (Auto) 4+ (NEG) Urine Crystals See comments (NONE PRSENT) Urine Pathogenic Casts /lpf (0) Urine Yeast (Auto) (NONE PRSENT) Medications Administered Medications (Trade) Dose Ordered Sig/Yoandy Route Start Time Stop Time Status Last Admin Dose Admin Sodium Chloride 500 ml @ 999 mls/hr Q31M STAT IV 07/18/17 15:43 07/18/17 16:13 DC 07/18/17 15:56 999 MLS/HR Ceftriaxone Sodium (Rocephin Inj) 1 gm NOW STAT IV 07/18/17 17:38 07/18/17 17:39 DC 07/18/17 17:58 1 GM Trimethoprim/ Sulfamethoxazole (Septra Ds 800/ 160MG Tab) 1 tab NOW ONCE PO 07/18/17 18:15 07/18/17 18:16 DC 07/18/17 18:32 1 TAB ED Course Patient was seen and examined Vital signs including blood pressure were reviewed medications list was verified with patient Labs were obtained, and a saline lock was established The patient was hydrated with 500 mL of normal saline Imaging was performed and reviewed The patient was reassessed and resting comfortable. We discussed the results of his workup. He was given 1 dose of Rocephin 1 g IV The patient was also seen and evaluated by my supervising physician, Dr. Heath I reviewed discharge instructions the patient. They voiced understanding and had no further questions. Medical Decision Differential diagnosis: DVT, cellulitis, sepsis, contusion, fracture This patient is a 42-year-old male with a history of paraplegia presented to the emergency department with left lower extremity swelling. He did have a fair amount of erythema to the foot and the anterior serna consistent with cellulitis. His vital signs are stable. He is not septic. He does have a mild leukocytosis. Ultrasound was negative for DVT. X-rays were negative for fracture. The patient also appears to have a urinary tract infection. He has a chronic indwelling Mcclure catheter. I reviewed his old cultures, which grew Escherichia coli. The patient was given 1 dose of Rocephin in the emergency department in addition to Bactrim to cover for MRSA. He was discharged home with a course of Keflex and Bactrim. I advised him to follow-up with his primary care physician within the next 3 days for recheck. He agrees to return to the emergency department with any new or worsening symptoms such as fever or increased redness or swelling This chart was completed in part utilizing [employer]_ Speech Voice Recognition software. Attempts were made to minimize the grammatical errors, random word insertions, pronoun errors and incomplete sentences. Any formal questions or concerns about the content, text or information contained within the body of this dictation should be directly addressed to the provider for clarification. Medication Reconcilliation Current Medication List: was personally reviewed by me Blood Pressure Screening Patient's blood pressure: Normal blood pressure Impression Primary Impression: Cellulitis Additional Impression: UTI (urinary tract infection) Departure Information Dispostion Home / Self-Care Condition GOOD Prescriptions Sulfa/Trimethoprim (Bactrim Ds 800MG/160MG) Tab 1 TAB PO BID for 7 Days, #14 TAB Prov: Toña Law PA-C 07/18/17 Cephalexin Monohydrate (Keflex) 500 Mg Cap 500 MG PO QID for 7 Days, #28 CAP Prov: Toña Law PA-C 07/18/17 Referrals Talon Verduzco M.D. (PCP) Patient Instructions ED Cellulitis Ch, My [facility] Additional Instructions You were treated in the emergency department today for cellulitis of the lower portion of your left leg and also urinary tract infection. Please finish the entire course of antibiotics. Please take a daily probiotic that can be found [id number] while on the antibiotics. Please follow-up with Dr. Verduzco early next week for a recheck. Return to the emergency department if you have any of the following symptoms: -Fever -Increased redness or swelling of the leg Problem Qualifiers
[2017-07-18] MEDS ORDERED: OXYB5TAB74 PO (15:55)
[2017-07-18 15:59] LABS: BASO % 0.1 %; BASO ABS # 0.01 K/uL (0-0.2); COMPLETE YES; EOS % 3.2 %; HEMATOCRIT 40.9 % (42-52); IG% 0.2 %; LYMPH % 20.4 %; LYMPH ABS # 2.45 K/uL (1.2-3.4); MEAN CELL VOLUME 91.7 fL (80-100); MEAN CORPUSCULAR HGB CONC 35.9 g/dl (32-36); MEAN PLATELET VOLUME 10.7 fL (7.4-10.4); MONO % 5.6 %; NEUT % 70.5 %; PLATELET COUNT 276 K/uL (130-400); RED BLOOD COUNT 4.46 M/uL (4.7-6.1); WHITE BLOOD COUNT 12.03 K/uL (4.8-10.8)
[2017-07-18 16:09] LABS: BUN/CREATININE RATIO 10.1 (10-20); CALCIUM 8.9 mg/dl (8.5-10.1); CREATININE 0.7 mg/dl (0.60-1.40); POTASSIUM 3.7 mmol/L (3.5-5.1)
[2017-07-18 16:11] LABS: ALB/GLOB RATIO 1.1 (0.9-2)
[2017-07-18 16:30] LABS: URINE APPEARANCE TURBID (CLEAR); URINE BILIRUBIN NEG (NEG); URINE COLOR YELLOW; URINE NITRITE POS (NEG); URINE PH 5.5 (4.5-7.5); URINE SPECIFIC GRAVITY 1.016 (1.000-1.030); UROBILINOGEN NEG (NEG)
[2017-07-18 16:34] LABS: MANUAL MICROSCOPIC REQUIRED? NO; REVIEW REQ? YES
--- NOTE | 2017-07-18 16:58 | DIAGNOSTIC IMAGING REPORT ---
VENOUS DOPPLER LWR EXT BILA CLINICAL HISTORY: 52 years-old Male presenting with BLE edema L>R. TECHNIQUE: Real-time grayscale and color and spectral Doppler ultrasound imaging of the veins of the bilateral lower extremities was performed. Compression and augmentation were also utilized. COMPARISON: None. FINDINGS: Right: Common femoral vein: Patent. Femoral vein: Patent. Greater saphenous vein: Patent. Popliteal vein: Patent. Calf veins: Limited visualization. Left: Common femoral vein: Patent. Femoral vein: Patent. Greater saphenous vein: Patent. Popliteal vein: Patent. Calf veins: Limited visualization. Other: None. IMPRESSION: No evidence of deep venous thrombosis. Electronically signed by: Dakota Montano M.D. 07/18/2017 4:57 PM Dictated Date/Time: 07/18/2017 4:56 PM
--- NOTE | 2017-07-18 17:24 | DIAGNOSTIC IMAGING REPORT ---
LEFT FOOT MIN 3 VIEWS ROUTINE CLINICAL HISTORY: Left foot pain and bruising. COMPARISON: None. DISCUSSION: The bones are markedly osteopenic. There is a mild hallux valgus deformity. No acute fractures are visualized. Mild degenerative changes are evident. There is mild dorsal soft tissue swelling. IMPRESSION: Severe osteopenia. No acute fractures or subluxations identified. Electronically signed by: Jason Nelson M.D. 07/18/2017 5:22 PM Dictated Date/Time: 07/18/2017 5:22 PM
[2017-07-18] MEDS ORDERED: CEFTRIAXONE SOD INJ 1 GM ADDVIAL IV STA (17:38)
[2017-07-18] MEDS ORDERED: SULFAMETHOXAZOLE/TRIMETHOPRIM DS 800/160MG TAB PO ONE (18:15)
[2017-07-18] MEDS ORDERED: CEPH500C PO (18:16)
[2017-07-18] MEDS ORDERED: SULF800T23 PO (18:16)
[2017-07-18 18:41] VITALS: BP 107/65; PULSE 68; O2SAT 96
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
== END 2017-07-18 19:26 | disposition home or self-care (01) ==
LOC: EDBD 15:20 → C.EDB 15:22
DX: L03.116 Cellulitis of left lower limb (principal); N39.0 Urinary tract infection, site not specified; G82.20 Paraplegia, unspecified; G90.4 Autonomic dysreflexia; M50.20 Other cervical disc displacement, unspecified cervical region; F32.9 Major depressive disorder, single episode, unspecified; E78.5 Hyperlipidemia, unspecified; N26.9 Renal sclerosis, unspecified; K40.90 Unilateral inguinal hernia, without obstruction or gangrene, not specified as recurrent; F17.200 Nicotine dependence, unspecified, uncomplicated; Z86.711 Personal history of pulmonary embolism; Z79.01 Long term (current) use of anticoagulants; Z96.0 Presence of urogenital implants

== ENCOUNTER → 2017-12-11 | Outpatient (CLI) | payer OTHER ==
[~2017-12-11] MED LIST changes: +DTR/5 PO; -MIRA1TAB3 PO; -MULT-506 PO; -OXYC-57 PO; +RANI150T85 PO; -ZNTT/150 PO
== END | disposition home or self-care (01) ==
LOC: C.LABBFT 10:36
PROVIDERS: ATTEND Internal Medicine
DX: E78.5 Hyperlipidemia, unspecified (principal); Z12.5 Encounter for screening for malignant neoplasm of prostate

== ENCOUNTER → 2018-06-03 | Outpatient (CLI) | payer OTHER | END | disposition home or self-care (01) | LOC: C.LABBFT 09:15 | PROVIDERS: ATTEND Internal Medicine | DX: N39.0 Urinary tract infection, site not specified (principal) ==

== ENCOUNTER 2023-03-31 20:44 | Inpatient (IN) ==
[2023-03-31 21:31] LABS: Basophils # (auto) 0.03 K/uL (0-0.2); Basophils % (auto) 0.2 %; Hematocrit (blood only) 43.5 % (42.0-52.0); Hemoglobin 14.6 g/dl (14.0-18.0); Immature Granulocytes # (auto) 0.04 K/uL (0.01-0.20); Immature Granulocytes % (auto) 0.3 %; Lymphocytes # (auto) 1.46 K/uL (1.2-3.4); Lymphocytes % (auto) 10.5 %; Mean Corpuscular Hemoglobin 32.4 pg (25.0-34.0); Mean Corpuscular Hgb Conc 33.6 g/dL (32.0-36.0); Mean Corpuscular Volume 96.7 fL (80.0-100.0); Monocytes # (auto) 0.92 K/uL (0.11-0.59); Monocytes % (auto) 6.6 %; Neutrophils # (auto) 11.44 K/uL (1.40-6.50); Neutrophils % (auto) 82.4 %; Platelet Count 264 K/uL (130-400); RDW Coefficient of Variation 13.7 % (11.5-14.5); RDW Standard Deviation 48.8 fL (36.4-46.3); White Blood Count 13.89 K/ul (4.8-10.8)
[2023-03-31 21:44] LABS: Albumin Globulin Ratio 1.5 (0.9-2); Albumin Level 4.5 gm/dl (3.4-5.0); BUN Creatinine Ratio 15.2 (10-20); Bilirubin,Total 0.5 mg/dl (0.2-1.0); Creatinine Clr Calc Pharmacy 74.2 ml/min; Est GFR (African American) 95.5 ml/min; Est GFR (Non-African American) 82.4 ml/min; Magnesium 1.5 mg/dl (1.7-2.4); Potassium 4.5 mmol/L (3.5-5.1); Total Protein 7.5 gm/dl (6.0-8.3)
[2023-03-31] MEDS ORDERED: SODIUM CHLORIDE 0.9% 1000ML 1,000 ML IV ONE (21:46)
[2023-03-31] MEDS ORDERED: ACETAMINOPHEN 1,000 MG/100 ML VIAL IV STA (21:46)
[2023-03-31] MEDS ORDERED: ONDANSETRON INJ 2 MG/ML 2 ML VIAL IV STA (21:46)
[2023-03-31] MEDS ORDERED: MAGNESIUM SULFATE / D5W 1 GM/100 ML BAG IV STA (21:47)
[2023-03-31] MEDS ORDERED: PIPERACILLIN/TAZOBACTAM 4.5 GM/120 ML BAG IV ONE (21:48)
[2023-03-31 22:00] LABS: INR 1.1 (0.9-1.1); Partial Thromboplastin Ratio 1.2; Partial Thromboplastin Time 34.7 Seconds (21.0-31.0); Prothrombin Time 12.1 Seconds (9.0-12.0)
[2023-03-31] MEDS ORDERED: DEXTROSE 50% 50 ML SYRINGE IV ONE (22:12)
--- NOTE | 2023-03-31 22:12 | Emergency Department Note ---
History of Present Illness General Chief complaint: Urinary Symptoms Time Seen by Provider: 03/31/23 21:27 History of Present Illness This 58-year-old male presents to the ER for worsening abdominal pain fever, ch ills nausea and vomiting it was here the other day and diagnosed with a UTI that has a neurogenic bladder. Patient states he is now vomiting and feels much more sick. He had a low-grade fever. Patient denies chest pain, dyspnea, cough, congestion, diarrhea. Home Medications Medication Instructions Recorded Confirmed Type cholecalciferol (vitamin D3) 25 2,000 unit PO QAM 06/08/19 03/28/23 History mcg (1,000 unit) capsule (Vitamin D3) baclofen 20 mg tablet 60 mg PO BID #540 tabs 06/17/22 03/28/23 Rx oxybutynin chloride 5 mg tablet 10 mg PO BID #360 tabs 06/17/22 03/28/23 Rx omeprazole 40 mg capsule,delayed 40 mg PO BID #180 caps 07/22/22 03/28/23 Rx release gabapentin 300 mg capsule 300 mg PO Q12H #60 caps 08/29/22 03/28/23 Rx simvastatin 20 mg tablet 20 mg PO HS #90 tabs 10/10/22 03/28/23 Rx catheter #2 ea 11/01/22 03/10/23 Rx diaper,brief,adult,disposable #150 ea 11/01/22 03/10/23 Rx (Depend Underwear For Men Large-Extra Large) drainage bag (Curity Bedside #2 ea 11/01/22 03/10/23 Rx Drainage Bag) incontinence pad, liner, disp #60 ea 11/01/22 03/10/23 Rx (Total Care Underpads) urinary bag (Bardia Urinary #2 ea 11/01/22 03/10/23 Rx Drainage Bag) urinary bag accessories (Extension #2 ea 11/01/22 03/10/23 Rx Tubing w-Connector [facility]) latex gloves (Latex Gloves, Large) #250 ea 11/26/22 03/10/23 Rx famotidine 20 mg tablet (Pepcid) 20 mg PO BID #180 tabs 12/03/22 03/28/23 Rx apixaban 5 mg tablet (Eliquis) 5 mg PO BID #60 tabs 03/10/23 03/28/23 Rx prostate complete 1 tab PO HS 03/10/23 03/28/23 History amoxicillin 875 mg-potassium 1 tab PO BID #14 tabs 03/28/23 Rx clavulanate 125 mg tablet magnesium oxide 500 mg tablet 500 mg PO QAM 03/28/23 03/28/23 History oxycodone 5 mg tablet 5 mg PO Q8H PRN pain #6 tabs 03/28/23 Rx Allergies Allergy/AdvReac Type Severity Reaction Status Date / Time No Known Allergies Allergy Verified 03/28/23 16:36 Past Med/Surg History Medical History Acute hemorrhoid Bladder stones HX Deep vein thrombosis 1991 Fusion of spine LUMBAR ([facility] GERD (gastroesophageal reflux disease) Ramiro filter in place 1991 [place] History of DVT (deep vein thrombosis) History of gastrostomy tube placement Hyperlipidemia Indwelling urinary catheter present Insomnia Nephrolithiasis Neurogenic bladder 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 Spinal cord injury JUNE 1992 Surgical History History of cystoscopy History of surgery "RT/LEFT HAMSTRING AND HIP RELEASES" History of tooth extraction History of tracheostomy Family History Father CHF (congestive heart failure) Mother Diabetes Brother Hypertension Dyslipidemia Diabetes Sister Psychiatric disorder Social History Smoking Status: Never smoker Tobacco Type: Cigarettes Age Started Using Tobacco: 15; packs per day: 1; Cigarettes Per Day: 10-20 CIG DAILY; Second Hand Exposure: No; Do You Dip or Chew Tobacco: No; Hx Alcohol Use: Yes (History of alcohol abuse. Quit approximately 1993. ) Alcohol type: beer Alcohol Intake Frequency: 2-4 x/Month Hx Substance Use: Yes (History of marijuana use-quit about 2019) Prescribed Medications: Marijuana Preferred Language: Nepali Communication Ability: Effective Hearing Ability: Normal Environmental Sustainability Manager Required: No Beliefs That Will Affect Care: None marital status: Single Current Living Situation: Significant Other current occupational status: disabled Feels Safe at Home: Yes Childhood Exposure to Second-Hand Smoke: Yes Diet: regular caffeine: Yes Dental Care, Regularly: No Physical Activity Frequency: Does not Exercise Physical Activity Frequency Comment: physically disabled Seatbelt Use: always Sunscreen Use: Yes Assistive Devices: Denture - Lower, Slide Board and Wheelchair Review of Systems A total of 10 systems reviewed and were otherwise negative Physical Exam Vital Signs Vital Signs - 24 hr 03/31/23 21:02 03/31/23 21:05 03/31/23 21:05 Temperature 36.9 C 36.9 C Temperature Source Oral Oral Pulse Rate 107 H 94 H Pulse Rate [Apical] 96 H Pulse Rhythm [Apical] Regular Respiratory Rate 20 20 Respiratory Effort / Characteristics Non-Labored Spontaneous Non-Labored Spontaneous Respiratory Depth Normal Normal Respiratory Pattern Regular Regular Blood Pressure 99/80 L Blood Pressure [Right Arm] 99/80 L Blood Pressure Mean 86 Blood Pressure Mean [Right Arm] 86 Blood Pressure Position [Right Arm] Lying Pulse Oximetry 96 95 Oxygen Delivery Method Room Air Nasal Cannula Oxygen Flow Rate 2 Sepsis Recent Fever Within 48 Hours Yes Sepsis New/Unexplained Change in Mental Status No Sepsis Action Taken by Nursing No Action Required 03/31/23 21:05 03/31/23 22:30 03/31/23 22:30 Temperature Temperature Source Pulse Rate 84 Pulse Rate [Apical] Pulse Rhythm [Apical] Respiratory Rate 23 Respiratory Effort / Characteristics Respiratory Depth Respiratory Pattern Blood Pressure 94/59 L Blood Pressure [Right Arm] Blood Pressure Mean 65 Blood Pressure Mean [Right Arm] Blood Pressure Position [Right Arm] Pulse Oximetry 96 97 Oxygen Delivery Method Nasal Cannula Oxygen Flow Rate 2 Sepsis Recent Fever Within 48 Hours Sepsis New/Unexplained Change in Mental Status Sepsis Action Taken by Nursing 03/31/23 23:08 04/01/23 00:30 Temperature Temperature Source Pulse Rate Pulse Rate [Apical] 84 86 Pulse Rhythm [Apical] Respiratory Rate 18 14 Respiratory Effort / Characteristics Respiratory Depth Normal Normal Respiratory Pattern Blood Pressure Blood Pressure [Right Arm] 96/64 L 99/68 L Blood Pressure Mean Blood Pressure Mean [Right Arm] 74 78 Blood Pressure Position [Right Arm] Pulse Oximetry 97 91 Oxygen Delivery Method Room Air Room Air Oxygen Flow Rate Sepsis Recent Fever Within 48 Hours Sepsis New/Unexplained Change in Mental Status Sepsis Action Taken by Nursing VITALS: Vitals are noted on the nurse's note and reviewed by myself. Vital signs reviewed. GENERAL: White male vomiting, in no acute distress, nondiaphoretic, well- developed well-nourished. SKIN: The skin was without rashes, erythema, edema, or bruising. There is no tenting of the skin. Capillary reflex less than 2 seconds. HEAD: Normocephalic atraumatic. EARS: External auditory canals clear, EYES: Pupils equal round and reactive to light and accommodation. Conjunctivae without injection, sclerae without icterus. Extraocular movements intact. NOSE: Patent, turbinates without inflammation or discharge. MOUTH: Mucous membranes mildly dry. Pharynx without erythema or exudate. Uvula midline. Airway patent. Tongue does not deviate. NECK: Supple without nuchal rigidity. No lymphadenopathy. No thyromegaly. Cervical spine is nontender. No JVD. HEART: Regular rate and rhythm LUNGS: Clear to auscultation bilaterally without wheezes, rales or rhonchi. No retractions or accessory muscle use. ABDOMEN: Positive bowel sounds x 4. Normal tympanic percussion. Soft, tender mid abdomen, without masses or organomegaly. Hill sign negative. No guarding or rebound tenderness. No CVA tenderness MUSCULOSKELETAL: No muscle atrophy, erythema, or edema noted. NEURO: Patient was alert and oriented to person place and time. Normal sensation to light and sharp touch. No focal neurological deficits. Course Administered Medications Discontinued Medications Dextrose (Dextrose 50% 50 Ml Syringe) 25 ml IV NOW ONE Stop: 03/31/23 22:13 Last Admin: 03/31/23 22:21 Dose: 25 ml Documented By: ZAMZAM Sodium Chloride (Nss 1000ml) 1,000 mls @ 999 mls/hr IV .Q1H1M ONE Stop: 03/31/23 22:46 Last Infusion: 04/01/23 00:27 Dose: 0 mls/hr Documented By: Admin: 03/31/23 21:55 Dose: 999 mls/hr Documented By: ZAMZAM Acetaminophen (Ofirmev) 1,000 mg in 100 mls @ 400 mls/hr IV NOW STA Stop: 03/31/23 22:00 Last Infusion: 03/31/23 22:19 Dose: 0 mls/hr Documented By: Admin: 03/31/23 22:02 Dose: 400 mls/hr Documented By: ZAMZAM Magnesium Sulfate/Dextrose (Magnesium Sulfate / D5w) 1 gm in 100 mls @ 100 mls/hr IV NOW STA Stop: 03/31/23 22:46 Last Infusion: 04/01/23 00:27 Dose: 0 mls/hr Documented By: Admin: 03/31/23 22:49 Dose: 100 mls/hr Documented By: ZAMZAM Piperacillin Sod/Tazobactam Sod (Zosyn) 4.5 gm in 120 mls @ 240 mls/hr IV NOW ONE Stop: 03/31/23 22:17 Last Infusion: 03/31/23 22:53 Dose: 0 mls/hr Documented By: Admin: 03/31/23 22:12 Dose: 240 mls/hr Documented By: ZAMZAM Sodium Chloride (Nss 1000ml) 1,000 mls @ 999 mls/hr IV .Q1H1M ONE Stop: 04/01/23 01:17 Last Admin: 04/01/23 00:25 Dose: 999 mls/hr Documented By: ILAN Ioversol (Optiray 320 100ml) 83 ml IV ONCE ONE Stop: 03/31/23 23:33 Last Admin: 03/31/23 23:33 Dose: 83 ml Documented By: JONATHAN Ondansetron HCl (Ondansetron Inj 2 Mg/Ml 2 Ml Vial) 4 mg IV NOW STA Stop: 03/31/23 21:47 Last Admin: 03/31/23 21:57 Dose: 4 mg Documented By: ZAMZAM Medical Decision Making Medical Records Attestation: I reviewed the patient's medical records. Home Medications Current Medication List: was personally reviewed by me Laboratory Data Attestation: I reviewed the patient's lab results. 03/31/23 20:55 03/31/23 20:55 Lab Results 03/31/23 03/31/23 03/31/23 Range/Units 20:55 20:55 20:55 WBC 13.89 H (4.8-10.8) K/ul RBC 4.50 L (4.70-6.10) M/uL Hgb 14.6 (14.0-18.0) g/dl Hct 43.5 (42.0-52.0) % MCV 96.7 (80.0-100.0) fL MCH 32.4 (25.0-34.0) pg MCHC 33.6 (32.0-36.0) g/dL RDW Std Deviation 48.8 H (36.4-46.3) fL RDW Coeff of Vanessa 13.7 (11.5-14.5) % Plt Count 264 (130-400) K/uL MPV 11.0 (9.4-12.4) fL Immature Gran % (Auto) 0.3 % Neut % (Auto) 82.4 % Lymph % (Auto) 10.5 % Childress % (Auto) 6.6 % Eos % (Auto) 0.0 % Baso % (Auto) 0.2 % Neut # (Auto) 11.44 H (1.40-6.50) K/uL Lymph # (Auto) 1.46 (1.2-3.4) K/uL Childress # (Auto) 0.92 H (0.11-0.59) K/uL Eos # (Auto) 0.00 (0-0.50) K/uL Baso # (Auto) 0.03 (0-0.2) K/uL Immature Gran # (Auto) 0.04 (0.01-0.20) K/uL PT 12.1 H (9.0-12.0) Seconds INR 1.1 (0.9-1.1) APTT 34.7 H (21.0-31.0) Seconds PTT Ratio 1.2 VBG pH (7.36-7.41) VBG pCO2 (38-50) mmHg VBG pO2 mmHg VBG HCO3 mmol/L VBG O2 Saturation % VBG Base Excess mEq/L Sodium 134 L (136-145) mmol/L Potassium 4.5 (3.5-5.1) mmol/L Chloride 100 (98-107) mmol/L Carbon Dioxide 11 L (21-32) mmol/L Anion Gap 23 H (3-11) BUN 15 (6-23) mg/dl Creatinine 0.99 (0.6-1.4) mg/dl Est Cr Clr Drug Dosing 74.2 ml/min Est GFR ( Amer) 95.5 ml/min Est GFR (Non-Af Amer) 82.4 ml/min BUN/Creatinine Ratio 15.2 (10-20) Glucose 61 L (70-99(Fasting)) mg/dl POC Glucose (70-99) mg/dl Calcium 9.0 (8.6-10.3) mg/dl Magnesium 1.5 L (1.7-2.4) mg/dl Total Bilirubin 0.5 (0.2-1.0) mg/dl AST 25 (13-39) U/L ALT 18 (7-52) U/L Alkaline Phosphatase 77 (34-104) U/L Total Protein 7.5 (6.0-8.3) gm/dl Albumin 4.5 (3.4-5.0) gm/dl Globulin 3.0 (2.5-4.0) gm/dl Albumin/Globulin Ratio 1.5 (0.9-2) Procalcitonin (0-0.5) ng/ml Urine Color Urine Appearance (Clear) Urine pH (4.5-7.5) Ur Specific Lilly (1.000-1.030) Urine Protein (Negative) Urine Glucose (UA) (Negative) Urine Ketones (Negative) Urine Blood (Negative) Urine Nitrite (Negative) Urine Bilirubin (Negative) Urine Urobilinogen (Negative) Ur Leukocyte Esterase (Negative) Urine WBC (Auto) (0-5) /hpf Urine RBC (Auto) (0-4) /hpf U Hyaline Cast (Auto) (0-5) /lpf U Epithel Cells (Auto) (0-5) /lpf Urine Bacteria (Auto) (Negative) Adenovirus (PCR) (NotDetected) B. pertussis DNA (PCR) (NotDetected) B.parapertussis DNA PCR (NotDetected) C. pneumoniae DNA (PCR) (NotDetected) Coronavirus OC43 (PCR) (NotDetected) Coronavirus HKU1 (PCR) (NotDetected) Coronavirus 229E (PCR) (NotDetected) SARS-CoV-2 (PCR) (NotDetected) Coronavirus NL63 (PCR) (NotDetected) Human Metapneumovir PCR (NotDetected) Influenza Type A (PCR) (NotDetected) Influenza Type B (PCR) (NotDetected) M. pneumoniae (PCR) (NotDetected) Parainfluenza 1 (PCR) (NotDetected) Parainfluenza 2 (PCR) (NotDetected) Parainfluenza 3 (PCR) (NotDetected) Parainfluenza 4 (PCR) (NotDetected) RSV (PCR) (NotDetected) Entero/Rhino (PCR) (NotDetected) 03/31/23 03/31/23 03/31/23 Range/Units 20:55 22:30 22:30 WBC (4.8-10.8) K/ul RBC (4.70-6.10) M/uL Hgb (14.0-18.0) g/dl Hct (42.0-52.0) % MCV (80.0-100.0) fL MCH (25.0-34.0) pg MCHC (32.0-36.0) g/dL RDW Std Deviation (36.4-46.3) fL RDW Coeff of Vanessa (11.5-14.5) % Plt Count (130-400) K/uL MPV (9.4-12.4) fL Immature Gran % (Auto) % Neut % (Auto) % Lymph % (Auto) % Childress % (Auto) % Eos % (Auto) % Baso % (Auto) % Neut # (Auto) (1.40-6.50) K/uL Lymph # (Auto) (1.2-3.4) K/uL Childress # (Auto) (0.11-0.59) K/uL Eos # (Auto) (0-0.50) K/uL Baso # (Auto) (0-0.2) K/uL Immature Gran # (Auto) (0.01-0.20) K/uL PT (9.0-12.0) Seconds INR (0.9-1.1) APTT (21.0-31.0) Seconds PTT Ratio VBG pH (7.36-7.41) VBG pCO2 (38-50) mmHg VBG pO2 mmHg VBG HCO3 mmol/L VBG O2 Saturation % VBG Base Excess mEq/L Sodium (136-145) mmol/L Potassium (3.5-5.1) mmol/L Chloride (98-107) mmol/L Carbon Dioxide (21-32) mmol/L Anion Gap (3-11) BUN (6-23) mg/dl Creatinine (0.6-1.4) mg/dl Est Cr Clr Drug Dosing ml/min Est GFR ( Amer) ml/min Est GFR (Non-Af Amer) ml/min BUN/Creatinine Ratio (10-20) Glucose (70-99(Fasting)) mg/dl POC Glucose (70-99) mg/dl Calcium (8.6-10.3) mg/dl Magnesium (1.7-2.4) mg/dl Total Bilirubin (0.2-1.0) mg/dl AST (13-39) U/L ALT (7-52) U/L Alkaline Phosphatase (34-104) U/L Total Protein (6.0-8.3) gm/dl Albumin (3.4-5.0) gm/dl Globulin (2.5-4.0) gm/dl Albumin/Globulin Ratio (0.9-2) Procalcitonin < 0.05 (0-0.5) ng/ml Urine Color Yellow Urine Appearance Clear (Clear) Urine pH 5.5 (4.5-7.5) Ur Specific Lilly 1.022 (1.000-1.030) Urine Protein 1+ H (Negative) Urine Glucose (UA) Negative (Negative) Urine Ketones 4+ H (Negative) Urine Blood 1+ H (Negative) Urine Nitrite Negative (Negative) Urine Bilirubin Negative (Negative) Urine Urobilinogen Negative (Negative) Ur Leukocyte Esterase 1+ H (Negative) Urine WBC (Auto) 10-30 H (0-5) /hpf Urine RBC (Auto) 5-10 H (0-4) /hpf U Hyaline Cast (Auto) 1-5 (0-5) /lpf U Epithel Cells (Auto) >30 H (0-5) /lpf Urine Bacteria (Auto) Negative (Negative) Adenovirus (PCR) Not Detected (NotDetected) B. pertussis DNA (PCR) Not Detected (NotDetected) B.parapertussis DNA PCR Not Detected (NotDetected) C. pneumoniae DNA (PCR) Not Detected (NotDetected) Coronavirus OC43 (PCR) Not Detected (NotDetected) Coronavirus HKU1 (PCR) Not Detected (NotDetected) Coronavirus 229E (PCR) Not Detected (NotDetected) SARS-CoV-2 (PCR) Not Detected (NotDetected) Coronavirus NL63 (PCR) Not Detected (NotDetected) Human Metapneumovir PCR Not Detected (NotDetected) Influenza Type A (PCR) Not Detected (NotDetected) Influenza Type B (PCR) Not Detected (NotDetected) M. pneumoniae (PCR) Not Detected (NotDetected) Parainfluenza 1 (PCR) Not Detected (NotDetected) Parainfluenza 2 (PCR) Not Detected (NotDetected) Parainfluenza 3 (PCR) Not Detected (NotDetected) Parainfluenza 4 (PCR) Not Detected (NotDetected) RSV (PCR) Not Detected (NotDetected) Entero/Rhino (PCR) Not Detected (NotDetected) 03/31/23 03/31/23 04/01/23 Range/Units 22:42 23:11 00:24 WBC (4.8-10.8) K/ul RBC (4.70-6.10) M/uL Hgb (14.0-18.0) g/dl Hct (42.0-52.0) % MCV (80.0-100.0) fL MCH (25.0-34.0) pg MCHC (32.0-36.0) g/dL RDW Std Deviation (36.4-46.3) fL RDW Coeff of Vanessa (11.5-14.5) % Plt Count (130-400) K/uL MPV (9.4-12.4) fL Immature Gran % (Auto) % Neut % (Auto) % Lymph % (Auto) % Childress % (Auto) % Eos % (Auto) % Baso % (Auto) % Neut # (Auto) (1.40-6.50) K/uL Lymph # (Auto) (1.2-3.4) K/uL Childress # (Auto) (0.11-0.59) K/uL Eos # (Auto) (0-0.50) K/uL Baso # (Auto) (0-0.2) K/uL Immature Gran # (Auto) (0.01-0.20) K/uL PT (9.0-12.0) Seconds INR (0.9-1.1) APTT (21.0-31.0) Seconds PTT Ratio VBG pH 7.22 L (7.36-7.41) VBG pCO2 29 L (38-50) mmHg VBG pO2 43 mmHg VBG HCO3 12 mmol/L VBG O2 Saturation 71.9 % VBG Base Excess -14.4 mEq/L Sodium 132 L (136-145) mmol/L Potassium 4.1 (3.5-5.1) mmol/L Chloride 103 (98-107) mmol/L Carbon Dioxide 14 L (21-32) mmol/L Anion Gap 15 H (3-11) BUN 14 (6-23) mg/dl Creatinine 0.91 (0.6-1.4) mg/dl Est Cr Clr Drug Dosing 80.7 ml/min Est GFR ( Amer) 105.8 ml/min Est GFR (Non-Af Amer) 91.3 ml/min BUN/Creatinine Ratio 15.4 (10-20) Glucose 83 (70-99(Fasting)) mg/dl POC Glucose 143 H (70-99) mg/dl Calcium 8.0 L (8.6-10.3) mg/dl Magnesium (1.7-2.4) mg/dl Total Bilirubin (0.2-1.0) mg/dl AST (13-39) U/L ALT (7-52) U/L Alkaline Phosphatase (34-104) U/L Total Protein (6.0-8.3) gm/dl Albumin (3.4-5.0) gm/dl Globulin (2.5-4.0) gm/dl Albumin/Globulin Ratio (0.9-2) Procalcitonin (0-0.5) ng/ml Urine Color Urine Appearance (Clear) Urine pH (4.5-7.5) Ur Specific Lilly (1.000-1.030) Urine Protein (Negative) Urine Glucose (UA) (Negative) Urine Ketones (Negative) Urine Blood (Negative) Urine Nitrite (Negative) Urine Bilirubin (Negative) Urine Urobilinogen (Negative) Ur Leukocyte Esterase (Negative) Urine WBC (Auto) (0-5) /hpf Urine RBC (Auto) (0-4) /hpf U Hyaline Cast (Auto) (0-5) /lpf U Epithel Cells (Auto) (0-5) /lpf Urine Bacteria (Auto) (Negative) Adenovirus (PCR) (NotDetected) B. pertussis DNA (PCR) (NotDetected) B.parapertussis DNA PCR (NotDetected) C. pneumoniae DNA (PCR) (NotDetected) Coronavirus OC43 (PCR) (NotDetected) Coronavirus HKU1 (PCR) (NotDetected) Coronavirus 229E (PCR) (NotDetected) SARS-CoV-2 (PCR) (NotDetected) Coronavirus NL63 (PCR) (NotDetected) Human Metapneumovir PCR (NotDetected) Influenza Type A (PCR) (NotDetected) Influenza Type B (PCR) (NotDetected) M. pneumoniae (PCR) (NotDetected) Parainfluenza 1 (PCR) (NotDetected) Parainfluenza 2 (PCR) (NotDetected) Parainfluenza 3 (PCR) (NotDetected) Parainfluenza 4 (PCR) (NotDetected) RSV (PCR) (NotDetected) Entero/Rhino (PCR) (NotDetected) Imaging Data Attestation: I personally reviewed and interpreted this imaging study as follows: Radiologist's Impression: Abdomen/Pelvis CT 03/31/23 21:46 Exam(s): CT ABDOMEN + PELVIS With Contrast IV Amt: 85ml OPTIRAY 320 EXAM: CT Abdomen and Pelvis With Intravenous Contrast CLINICAL HISTORY: Reason for exam: severe pain and fever. TECHNIQUE: Axial computed tomography images of the abdomen and pelvis with intravenous contrast. CTDI is 25.5 mGy and DLP is 1257.05 mGy-cm. Automated exposure control was utilized for the study. A dose lowering technique was utilized adhering to the principles of ALARA. CONTRAST: Patient received 85ml OPTIRAY 320 of IV contrast COMPARISON: 03/28/2023 FINDINGS: Lung bases: Unremarkable. No mass. No consolidation. ABDOMEN: Liver: Unremarkable. No mass. Gallbladder and bile ducts: Unremarkable. No calcified stones. No ductal dilation. Pancreas: Unremarkable. No mass. No ductal dilation. Spleen: Unremarkable. No splenomegaly. Adrenals: Simple bilateral fat-containing adrenal gland nodules consistent with adenomas. 2.8 cm left lower pole renal cyst. No follow- up of this simple cyst is necessary. Kidneys and ureters: See above. Stomach and bowel: Unremarkable. No obstruction. No mucosal thickening. PELVIS: Appendix: Normal-appearing appendix. No free air or intestinal obstruction. Bladder: Mcclure catheter within the urinary bladder. Numerous bladder stones present. Fatty infiltration of the liver. Reproductive: Unremarkable as visualized. ABDOMEN and PELVIS: Intraperitoneal space: See above. Bones/joints: No acute fracture. No dislocation. Soft tissues: Unremarkable. Vasculature: Unremarkable. No abdominal aortic aneurysm. Lymph nodes: Unremarkable. No enlarged lymph nodes. IMPRESSION: 1. CT abdomen and pelvis negative for acute intra-abdominal pathology 2. Multiple stable chronic findings as above. Electronically signed by: Juaquin Willingham MD 04/01/23 00:49 AM [facility] Narrative Prior records/ancillary studies reviewed. Triage Nursing notes reviewed. Additional history obtained from nursing. The patient's history was concerning for abdominal pain. Differential diagnosis: Etiologies such as appendicitis, diverticulitis, PUD, biliary pathology, UTI, pancreatitis, obstruction, mesenteric ischemia, aortic pathology, infections, inflammatory bowel disease, renal colic, as well as others were entertained. Physical examination findings: As above. ER treatment provided: An order was placed for continuous cardiac monitoring. The monitor shows a rate of 60-1 50 with a sinus rhythm per my Independent interpretation. IV fluids, dextrose, Zosyn, Zofran On reassessment the patient felt better. Diagnostics interpreted by me: ECG: Ordered for weakness EKG: Normal sinus, normal intervals, no acute ST-T wave changes. Rate of 105. Impression sinus tachycardia independently interpreted by myself I think arrhythmia is unlikely. EKG shows normal sinus rhythm with no interval abnormalities such as QT prolongation or WPW. There are no findings to suggest Brugada syndrome. Cardiac monitoring in the emergency department reveals no tachycardic or bradycardic dysrhythmia. Hypertrophic cardiomyopathy was considered but there are no clear historical elements pointing toward this. EKG is not suggestive. The QRS voltage is not extremely large and there are no suggestive Q waves. The labs Independently Interpreted by myself revealed hyperglycemia patient was given dextrose IV as he was vomiting Low magnesium and this was replaced Leukocytosis, anion gap, VBG was ordered Repeat BMP shows improvement of the gap. This was likely from dehydration Imaging studies: Chest x-ray with no acute consolidation, pneumothorax or free air per my in dependent interpretation CT of the abdomen pelvis was independent turbid by myself and read by radiology as above. No new findings. Consultation: A consultation was placed with the hospitalist. The case was discussed and diagnostics were reviewed. The patient was evaluated in the ER for further t reatment. Exam and history seem consistent with nausea, vomiting, dehydration, metabolic acidosis and abdominal pain with UTI. Patient was medicated as above. His gap did improve. Labs and diagnostics were independent turbid by myself. Radiology read the CAT scan. Medicine was consulted and case was discussed. He will be admitted to the medical team. By the evaluation outlined above emergent etiologies such as appendicitis, diverticulitis, PUD, biliary pathology, pancreatitis, obstruction, mesenteric ischemia, aortic pathology, inflammatory bowel disease, renal colic, as well as others were deemed relatively unlikely. The pt informed about the findings as listed above. All questions were answered and pleased with the treatment. The chart was completed utilizing [employer] Speech voice recognition software. Grammatical errors, random word insertions, pronoun errors, and incomplete sentences are an occassional consequence of this system due to software limitations, ambient noise, and hardware issues. Any formal questions or concerns about the content, text, or information contained within the body of this dictation should be directly addressed to the physician real estate executive assistant for clarification. Impression & Plan Abdominal pain, acute, Acute UTI, Acute dehydration, Metabolic acidosis Discharge Plan Visit Data Chief Complaint: Urinary Symptoms ED Provider: Adithya Stinson ED Midlevel Provider: Cristiane Paul Discharge Problem: Abdominal pain, acute, Acute UTI, Acute dehydration, Metabolic acidosis Patient Disposition: Admitted As Inpatient Condition: Fair Forms Stand Alone Forms: [facility] [employer] Prescriptions Prescriptions: No Action baclofen 20 mg tablet 60 mg PO BID Qty: 540 3RF oxybutynin chloride 5 mg tablet 10 mg PO BID Qty: 360 3RF omeprazole 40 mg capsule,delayed release(DR/EC) 40 mg PO BID Qty: 180 3RF simvastatin 20 mg tablet 20 mg PO HS Qty: 90 3RF (DME) catheter Misc See Rx Instructions .Route Qty: 2 11RF Rx Instructions: As directed (DME) Depend Underwear For Men L-XL Misc See Rx Instructions .Route Qty: 150 11RF Rx Instructions: 5 per day (DME) Curity Bedside Drainage Bag Misc See Rx Instructions .Route Qty: 2 11RF Rx Instructions: As directed (DME) Total Care Underpads Pad See Rx Instructions .Route Qty: 60 11RF Rx Instructions: As directed (DME) Bardia Urinary Drainage Bag Misc See Rx Instructions .Route Qty: 2 11RF Rx Instructions: As directed (DME) Extension Tubing w-Connector Misc See Rx Instructions .Route Qty: 2 11RF Rx Instructions: As directed (DME) latex gloves [Latex Gloves, Large] Misc See Rx Instructions .Route Qty: 250 3RF Rx Instructions: As directed famotidine [Pepcid] 20 mg tablet 20 mg PO BID Qty: 180 3RF prostate complete 1 tab PO HS Eliquis 5 mg tablet 5 mg PO BID Qty: 60 12RF gabapentin 300 mg capsule 300 mg PO Q12H Qty: 60 11RF cholecalciferol (vitamin D3) [Vitamin D3] 1,000 unit Capsule 2,000 unit PO QAM magnesium oxide 500 mg Tablet 500 mg PO QAM amoxicillin-pot clavulanate 875-125 mg tablet 1 tab PO BID Qty: 14 0RF oxycodone 5 mg tablet 5 mg PO Q8H PRN (Reason: pain) Qty: 6 0RF Referrals Referrals: Talon Verduzco MD [Primary Care Provider] -
[2023-03-31 22:49] LABS: Appearance Urine Clear (Clear); Bacteria Urine Automated Negative (Negative); Bilirubin Urine Negative (Negative); Blood Urine 1+ (Negative); Color Urine Yellow; Epithelial Cell Urine Auto >30 /lpf (0-5); Glucose Urine UA Negative (Negative); Ketones Urine 4+ (Negative); Leukocyte Esterase Urine 1+ (Negative); Nitrite Urine Negative (Negative); Protein Urine 1+ (Negative); Specific Gravity Urine 1.022 (1.000-1.030); Urobilinogen Urine Negative (Negative); pH Urine 5.5 (4.5-7.5)
[2023-03-31 23:22] LABS: Base Excess VBG -14.4 mEq/L; HCO3 VBG 12 mmol/L; Oxygen Saturation VBG 71.9 %; PCO2 VBG 29 mmHg (38-50); PO2 VBG 43 mmHg; pH VBG 7.22 (7.36-7.41)
[2023-03-31] MEDS ORDERED: OPTIRAY 320 100ml IV ONE (23:32)
[2023-03-31 23:37] LABS: Adenovirus PCR Not Detected (NotDetected); Bordetella parapertussis PCR Not Detected (NotDetected); Bordetella pertussis PCR Not Detected (NotDetected); Chlamydia pneumoniae PCR Not Detected (NotDetected); Coronavirus 229E PCR Not Detected (NotDetected); Coronavirus CoV-2 (COVID19)PCR Not Detected (NotDetected); Coronavirus HKU1 PCR Not Detected (NotDetected); Coronavirus NL63 PCR Not Detected (NotDetected); Coronavirus OC43PCR Not Detected (NotDetected); Human Metapneumovirus PCR Not Detected (NotDetected); Influenza A PCR Not Detected (NotDetected); Influenza B PCR Not Detected (NotDetected); Mycoplasma pneumoniae PCR Not Detected (NotDetected); Parainfluenza Virus 1 PCR Not Detected (NotDetected); Parainfluenza Virus 2 PCR Not Detected (NotDetected); Parainfluenza Virus 3 PCR Not Detected (NotDetected); Parainfluenza Virus 4 PCR Not Detected (NotDetected); Respiratory Syncytial VirusPCR Not Detected (NotDetected); Rhinovirus/Enterovirus PCR Not Detected (NotDetected)
[2023-04-01] MEDS ORDERED: SODIUM CHLORIDE 0.9% 1000ML 1,000 ML IV ONE (00:17)
--- NOTE | 2023-04-01 00:50 | CT Scan Report ---
Exam(s): CT ABDOMEN + PELVIS With Contrast IV Amt: 85ml OPTIRAY 320 EXAM: CT Abdomen and Pelvis With Intravenous Contrast CLINICAL HISTORY: Reason for exam: severe pain and fever. TECHNIQUE: Axial computed tomography images of the abdomen and pelvis with intravenous contrast. CTDI is 25.5 mGy and DLP is 1257.05 mGy-cm. Automated exposure control was utilized for the study. A dose lowering technique was utilized adhering to the principles of ALARA. CONTRAST: Patient received 85ml OPTIRAY 320 of IV contrast COMPARISON: 03/28/2023 FINDINGS: Lung bases: Unremarkable. No mass. No consolidation. ABDOMEN: Liver: Unremarkable. No mass. Gallbladder and bile ducts: Unremarkable. No calcified stones. No ductal dilation. Pancreas: Unremarkable. No mass. No ductal dilation. Spleen: Unremarkable. No splenomegaly. Adrenals: Simple bilateral fat-containing adrenal gland nodules consistent with adenomas. 2.8 cm left lower pole renal cyst. No follow- up of this simple cyst is necessary. Kidneys and ureters: See above. Stomach and bowel: Unremarkable. No obstruction. No mucosal thickening. PELVIS: Appendix: Normal-appearing appendix. No free air or intestinal obstruction. Bladder: Mcclure catheter within the urinary bladder. Numerous bladder stones present. Fatty infiltration of the liver. Reproductive: Unremarkable as visualized. ABDOMEN and PELVIS: Intraperitoneal space: See above. Bones/joints: No acute fracture. No dislocation. Soft tissues: Unremarkable. Vasculature: Unremarkable. No abdominal aortic aneurysm. Lymph nodes: Unremarkable. No enlarged lymph nodes. IMPRESSION: 1. CT abdomen and pelvis negative for acute intra-abdominal pathology 2. Multiple stable chronic findings as above. Electronically signed by: Juaquin Willingham MD 04/01/23 00:49 AM
[2023-04-01 00:52] LABS: BUN Creatinine Ratio 15.4 (10-20); Creatinine Clr Calc Pharmacy 80.7 ml/min; Est GFR (African American) 105.8 ml/min; Est GFR (Non-African American) 91.3 ml/min; Potassium 4.1 mmol/L (3.5-5.1)
[2023-04-01] MEDS ORDERED: DEXTROSE 50% 50 ML SYRINGE IV PRN (04:57)
[2023-04-01] MEDS ORDERED: CARBOHYDRATES FOR HYPOGLYCEMIA PO PRN (04:57)
--- NOTE | 2023-04-01 05:00 | History & Physical Report ---
Date of Service April 01, 2023 Assessment & Plan (1) Acute UTI: Plan: Patient presents to ED with complaints of subjective fever associated with generalized weakness and nausea vomiting and decreased p.o. intake Evaluation in the ED indicates evidence of elevated white count of 13.8 along with UA showing evidence of UTI. Patient also found to have low bicarb of 11. Patient has a history of neurogenic bladder secondary to his prior history of spinal cord injury at C5-C6 level in 1991 and patient has chronic indwelling Love catheter. Patient is on IV antibiotic therapy with IV Zosyn will be continued Follow urine cultures and sensitivity results and adjust antibiotics Recheck CBC level in a.m. (2) Acute dehydration: Plan: Patient reports decreased p.o. intake secondary to ongoing nausea and vomiting symptoms over the past few days Clinical exam consistent with volume depletion and patient systolic blood pressure was less than 100 upon initial presentation Continue IV fluid with close monitoring of input output and hemodynamics (3) Metabolic acidosis: Plan: Patient found to have low bicarb of 11 with increased anion gap consistent with metabolic acidosis Continue with IV fluids and IV antibiotic therapy Monitor bicarb level along with anion gap (4) Hypoglycemia: Plan: Patient blood sugar upon initial presentation was 61 likely secondary to poor p.o. intake and ongoing GI losses Patient will be started on IV dextrose with close monitoring of his blood sugar sugars (5) Chronic indwelling Love catheter: Plan: Patient has neurogenic bladder secondary to spinal cord injury and has chronic indwelling Love catheter Presently with UTI symptoms and acute UTI being treated with IV Zosyn Continue with chronic Love care (6) Neurogenic bladder: Plan: Secondary to spinal cord injury with resultant chronic indwelling Love catheter Continue Love care (7) Hypercholesterolemia: Plan: Continue statin therapy with simvastatin 20 mg daily (8) GERD (gastroesophageal reflux disease): Plan: Continue PPI therapy History of Present Illness Chief Complaint: Patient presents to ED with complaints of nausea vomiting with low-grade fever and urinary symptoms Primary Care Provider: Talon Verduzco MD This is a 58-year-old male with past medical history significant for history of spinal cord injury at C5-C6 level with residual paresis, history of neurogenic bladder with chronic indwelling Love catheter, GERD, hyperlipidemia, history of DVT on anticoagulation with Eliquis who presents to the emergency department with complaints of ongoing nausea and vomiting with poor p.o. intake and subjective fever symptoms. Patient has a indwelling Love catheter and was recently seen in the ED for acute UTI symptoms as well. Patient reports that over the past few days he has been having subjective fever and has been having p oor p.o. intake complement nausea vomiting symptoms and the symptoms that worsen events patient presents to ED for further evaluation. Upon initial evaluation in the ED patient was found to have a low blood sugar of 61 along with lab data indicating low bicarb level with positive anion gap. Patient was also having low blood pressure and the patient was given a fluid bolus with improvement of systolic blood pressure over 100 and with improvement in his bicarb levels. Patient was found to have elevated white count consistent with his acute UTI and patient is being admitted for further management of his acute urinary tract infection in the setting of chronic indwelling Love catheter and neurogenic bladder. Patient was given a dose of IV Zosyn in the ED as well. Allergies Allergy/AdvReac Type Severity Reaction Status Date / Time No Known Allergies Allergy Verified 03/28/23 16:36 Home Medications Medication Instructions Recorded Confirmed Type cholecalciferol (vitamin D3) 25 2,000 unit PO QAM 06/08/19 04/01/23 History mcg (1,000 unit) capsule (Vitamin D3) baclofen 20 mg tablet 60 mg PO BID #540 tabs 06/17/22 04/01/23 Rx oxybutynin chloride 5 mg tablet 10 mg PO BID #360 tabs 06/17/22 04/01/23 Rx omeprazole 40 mg capsule,delayed 40 mg PO BID #180 caps 07/22/22 04/01/23 Rx release gabapentin 300 mg capsule 300 mg PO Q12H #60 caps 08/29/22 04/01/23 Rx simvastatin 20 mg tablet 20 mg PO HS #90 tabs 10/10/22 04/01/23 Rx catheter #2 ea 11/01/22 03/10/23 Rx diaper,brief,adult,disposable #150 ea 11/01/22 03/10/23 Rx (Depend Underwear For Men Large-Extra Large) drainage bag (Curity Bedside #2 ea 11/01/22 03/10/23 Rx Drainage Bag) incontinence pad, liner, disp #60 ea 11/01/22 03/10/23 Rx (Total Care Underpads) urinary bag (Bardia Urinary #2 ea 11/01/22 03/10/23 Rx Drainage Bag) urinary bag accessories (Extension #2 ea 11/01/22 03/10/23 Rx Tubing w-Connector misc) latex gloves (Latex Gloves, Large) #250 ea 11/26/22 03/10/23 Rx famotidine 20 mg tablet (Pepcid) 20 mg PO BID #180 tabs 12/03/22 04/01/23 Rx apixaban 5 mg tablet (Eliquis) 5 mg PO BID #60 tabs 03/10/23 04/01/23 Rx prostate complete 1 tab PO HS 03/10/23 04/01/23 History amoxicillin 875 mg-potassium 1 tab PO BID #14 tabs 03/28/23 04/01/23 Rx clavulanate 125 mg tablet magnesium oxide 500 mg tablet 500 mg PO QAM 03/28/23 04/01/23 History oxycodone 5 mg tablet 5 mg PO Q8H PRN pain #6 tabs 03/28/23 04/01/23 Rx lidocaine 5 % topical patch 1 patch topical DAILY 04/01/23 04/01/23 History nystatin 100,000 unit/gram topical 1 applic topical BID 04/01/23 04/01/23 History powder Past Med/Surg History Medical History Acute hemorrhoid Bladder stones HX Deep vein thrombosis 1991 Fusion of spine LUMBAR ([facility]) GERD (gastroesophageal reflux disease) [place] filter in place 1991 [place] History of DVT (deep vein thrombosis) History of gastrostomy tube placement Hyperlipidemia Indwelling urinary catheter present Insomnia Nephrolithiasis Neurogenic bladder 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 Spinal cord injury JUNE 1992 Surgical History History of cystoscopy History of surgery "RT/LEFT HAMSTRING AND HIP RELEASES" History of tooth extraction History of tracheostomy Family History Father CHF (congestive heart failure) Mother Diabetes Brother Hypertension Dyslipidemia Diabetes Sister Psychiatric disorder Social History Smoking Status: Current every day smoker Tobacco Type: Cigarettes Age Started Using Tobacco: 15; packs per day: 1; Cigarettes Per Day: 12; Smoking End Date: quit 1 week ago; Second Hand Exposure: No; Do You Dip or Chew Tobacco: No; Tobacco Cessation Education Requested by Patient: No Hx Alcohol Use: Yes Alcohol type: beer Alcohol Intake Frequency: 2-4 x/Month Hx Substance Use: Yes Prescribed Medications: Marijuana Last Used Substance Other:: 2019 Preferred Language: Mohawk Communication Ability: Effective Hearing Ability: Normal Propeller Inspector Required: No Beliefs That Will Affect Care: None marital status: Single Current Living Situation: Significant Other Current Living Situation Comment: lives with zulema smalls current occupational status: disabled Other Information That Helps Us Care for You: No Feels Safe at Home: Yes Safety Concerns: Feels Safe At This Time Childhood Exposure to Second-Hand Smoke: Yes Diet: regular caffeine: Yes Dental Care, Regularly: No Physical Activity Frequency: Does not Exercise Physical Activity Frequency Comment: physically disabled Seatbelt Use: always Sunscreen Use: Yes Assistive Devices: Scooter/Electric Scooter Review of Systems Review of Systems: Constitutional-pt reports subjective fever ENT-no blurred vision, no double vision, no epistaxis, Respiratory- No wheezing Cardiac-no palpitations, no chest pain, no syncope GI- reports nausea, vomiting, poor po intake - indwelling love Musculoskeletal- spinal cord injury pt Skin-no bruising, no rashes, no pruritus Neuro- SC injury with residual paresis Physical Exam Physical Exam: Head and ENT no thyroid enlargement trachea midline Cardiovascular S1-S2 are normal no S3 Lungs bilateral air entry fair no wheezing Abdomen soft nondistended no rebound tenderness Extremity shows trace edema Neurologically residual paresis of Spinal cord injury Skin shows no rash Results & Data Results & Data Vital Signs (Past 12 Hours) Vital Signs Temp Pulse Pulse Resp BP BP Pulse Ox 04/01/23 04:00 99 H 19 98 04/01/23 03:30 80 18 97 04/01/23 03:00 77 21 97 04/01/23 02:00 95 H 16 119/71 98 04/01/23 01:32 80 24 89/62 L 98 04/01/23 01:31 83 20 79/65 L 98 04/01/23 01:00 85 18 100/64 98 04/01/23 00:30 79 17 99/68 L 92 04/01/23 00:00 83 28 H 96/61 L 93 03/31/23 23:41 91 H 23 101/67 95 03/31/23 23:07 82 22 96/64 L 97 03/31/23 23:00 83 19 87/64 L 04/01/23 01:25 88 04/01/23 00:30 86 14 99/68 L 91 04/01/23 02:00 99 H 20 119/71 95 03/31/23 23:08 84 18 96/64 L 97 03/31/23 22:30 84 23 97 03/31/23 22:30 94/59 L 03/31/23 21:05 96 03/31/23 21:05 36.9 C 96 H 20 99/80 L 95 03/31/23 21:05 36.9 C 94 H 20 99/80 L 96 03/31/23 21:02 107 H O2 Del Method O2 Flow Rate 04/01/23 04:00 04/01/23 03:30 04/01/23 03:00 04/01/23 02:00 Nasal Cannula 2 04/01/23 01:32 Nasal Cannula 2 04/01/23 01:31 Nasal Cannula 2 04/01/23 01:00 Nasal Cannula 2 04/01/23 00:30 Nasal Cannula 2 04/01/23 00:00 Nasal Cannula 2 03/31/23 23:41 Nasal Cannula 2 03/31/23 23:07 Nasal Cannula 2 03/31/23 23:00 04/01/23 01:25 04/01/23 00:30 Room Air 04/01/23 02:00 Nasal Cannula 2 03/31/23 23:08 Room Air 03/31/23 22:30 03/31/23 22:30 03/31/23 21:05 Nasal Cannula 2 03/31/23 21:05 Nasal Cannula 2 03/31/23 21:05 Room Air 03/31/23 21:02 Laboratory Results Short CBC 03/31/23 Range/Units 20:55 WBC 13.89 H (4.8-10.8) K/ul Hgb 14.6 (14.0-18.0) g/dl Hct 43.5 (42.0-52.0) % Plt Count 264 (130-400) K/uL BMP 03/31/23 04/01/23 20:55 00:24 Sodium 134 L 132 L Potassium 4.5 4.1 Chloride 100 103 Carbon Dioxide 11 L 14 L BUN 15 14 Creatinine 0.99 0.91 Glucose 61 L 83 Calcium 9.0 8.0 L Liver Function 03/31/23 Range/Units 20:55 Total Bilirubin 0.5 (0.2-1.0) mg/dl AST 25 (13-39) U/L ALT 18 (7-52) U/L Alkaline Phosphatase 77 (34-104) U/L Albumin 4.5 (3.4-5.0) gm/dl Urine 03/31/23 Range/Units 22:30 Urine Color Yellow Urine Appearance Clear (Clear) Urine pH 5.5 (4.5-7.5) Ur Specific [place] 1.022 (1.000-1.030) Urine Protein 1+ H (Negative) Urine Glucose (UA) Negative (Negative) Diagnostic Findings Chest X-Ray 03/31/23 20:58 XR chest 1V portable CLINICAL HISTORY: Sepsis. COMPARISON STUDY: Chest radiograph January 22, 2017. FINDINGS: Postoperative findings within the cervical spine are incidentally noted. Lung volumes are normal. Lungs are clear. There is no pneumothorax or pleural effusion. Cardiac size is stable. Mediastinal contours are normal. There is no evidence for pulmonary edema. IMPRESSION: No acute cardiopulmonary findings. No significant change in appearance of the chest. ACT 112: Negative or not required by law. Electronically signed by: Kevin Rich M.D. 04/01/2023 7:27 AM Abdomen/Pelvis CT 03/31/23 21:46 Exam(s): CT ABDOMEN + PELVIS With Contrast IV Amt: 85ml OPTIRAY 320 EXAM: CT Abdomen and Pelvis With Intravenous Contrast CLINICAL HISTORY: Reason for exam: severe pain and fever. TECHNIQUE: Axial computed tomography images of the abdomen and pelvis with intravenous contrast. CTDI is 25.5 mGy and DLP is 1257.05 mGy-cm. Automated exposure control was utilized for the study. A dose lowering technique was utilized adhering to the principles of ALARA. CONTRAST: Patient received 85ml OPTIRAY 320 of IV contrast COMPARISON: 03/28/2023 FINDINGS: Lung bases: Unremarkable. No mass. No consolidation. ABDOMEN: Liver: Unremarkable. No mass. Gallbladder and bile ducts: Unremarkable. No calcified stones. No ductal dilation. Pancreas: Unremarkable. No mass. No ductal dilation. Spleen: Unremarkable. No splenomegaly. Adrenals: Simple bilateral fat-containing adrenal gland nodules consistent with adenomas. 2.8 cm left lower pole renal cyst. No follow- up of this simple cyst is necessary. Kidneys and ureters: See above. Stomach and bowel: Unremarkable. No obstruction. No mucosal thickening. PELVIS: Appendix: Normal-appearing appendix. No free air or intestinal obstruction. Bladder: Love catheter within the urinary bladder. Numerous bladder stones present. Fatty infiltration of the liver. Reproductive: Unremarkable as visualized. ABDOMEN and PELVIS: Intraperitoneal space: See above. Bones/joints: No acute fracture. No dislocation. Soft tissues: Unremarkable. Vasculature: Unremarkable. No abdominal aortic aneurysm. Lymph nodes: Unremarkable. No enlarged lymph nodes. IMPRESSION: 1. CT abdomen and pelvis negative for acute intra-abdominal pathology 2. Multiple stable chronic findings as above. Electronically signed by: Juaquin Willingham MD 04/01/23 00:49 AM Code Status & VTE Plan VTE Prophylaxis Plan VTE Prophylaxis will be ordered: Yes PG Care Time/CCT Total # of Minutes Spent Total Time Spent with Patient: Total time spent is greater than 50% in coordination of care (as documented) at patient's floor/unit and/or counseling patient: Coding Level of Care Code 17191 INT INP/OBS CARE 2/55MIN Diagnoses Acute UTI N39.0 Acute dehydration E86.0 Metabolic acidosis E87.20 Hypoglycemia E16.2 Chronic indwelling Love catheter Z97.8 Neurogenic bladder N31.9 Hypercholesterolemia E78.00 GERD (gastroesophageal reflux disease) K21.9
[2023-04-01] MEDS: D5W AND NSS 1,000 ML IV SCH ×2 (05:20→15:23)
[2023-04-01] MEDS ORDERED: ONDANSETRON INJ 2 MG/ML 2 ML VIAL IV STA (06:14)
[2023-04-01] MEDS ORDERED: ACETAMINOPHEN 325 MG TAB PO PRN (07:06)
[2023-04-01] MEDS ORDERED: MAGNESIUM HYDROXIDE SUSP 30 ML UDC PO PRN (07:06)
[2023-04-01] MEDS ORDERED: oxyCODONE HCL IR 5 MG TAB (IMMEDIATE RELEASE) PO PRN (07:06)
[2023-04-01] MEDS ORDERED: ALUMINUM/MAGNESIUM SUSP 30 ML UDC PO PRN (07:06)
--- NOTE | 2023-04-01 07:28 | XRay Report ---
XR chest 1V portable CLINICAL HISTORY: Sepsis. COMPARISON STUDY: Chest radiograph January 22, 2017. FINDINGS: Postoperative findings within the cervical spine are incidentally noted. Lung volumes are n ormal. Lungs are clear. There is no pneumothorax or pleural effusion. Cardiac size is stable. Mediast inal contours are normal. There is no evidence for pulmonary edema. IMPRESSION: No acute cardiopulmonary findings. No significant change in appearance of the chest. ACT 112: Negative or not required by law. Electronically signed by: Kevin Rich M.D. 04/01/2023 7:27 AM
[2023-04-01] MEDS ORDERED: LIDOCAINE 5% 1 PATCH TD SCH (09:00)
[2023-04-01] MEDS: BACLOFEN 20 MG TAB PO SCH ×2 (09:01→20:32)
[2023-04-01] MEDS: GABAPENTIN 300 MG CAP PO SCH ×2 (09:02→20:32)
[2023-04-01] MEDS: FAMOTIDINE 20 MG TAB PO SCH ×2 (09:03→20:33)
[2023-04-01] MEDS: MAGNESIUM OXIDE 400 MG TAB PO SCH (09:03)
[2023-04-01] MEDS: CHOLECALCIFEROL 1,000 UNITS 25 MCG TAB PO SCH (09:03)
[2023-04-01] MEDS: PANTOprazole 40 MG TAB PO SCH ×2 (09:04→20:32)
[2023-04-01] MEDS: oxyBUTYnin chloride 5 MG TAB PO SCH ×2 (09:04→20:33)
--- NOTE | 2023-04-01 09:09 | Electrocardiogram Report ---
Test Reason : Blood Pressure : / mmHG Vent. Rate : 105 BPM Atrial Rate : 105 BPM P-R Int : 142 ms QRS Dur : 068 ms QT Int : 334 ms P-R-T Axes : 044 084 067 degrees QTc Int : 441 ms Sinus tachycardia Otherwise normal ECG When compared with ECG of 22-JAN-2017 09:42, VT interval has decreased Vent. rate has increased BY 47 BPM Confirmed by Adeel Cortez ([id number]) on 04/01/2023 9:08:50 AM Referred By: REFERRED SELF Confirmed By:Adeel Cortez
[2023-04-01 09:15] LABS: Basophils # (auto) 0.03 K/uL (0-0.2); Basophils % (auto) 0.2 %; Eosinophils # (auto) 0.01 K/uL (0-0.50); Eosinophils % (auto) 0.1 %; Hematocrit (blood only) 40.7 % (42.0-52.0); Hemoglobin 13.8 g/dl (14.0-18.0); Immature Granulocytes # (auto) 0.06 K/uL (0.01-0.20); Immature Granulocytes % (auto) 0.4 %; Lymphocytes # (auto) 2.44 K/uL (1.2-3.4); Lymphocytes % (auto) 16.5 %; Mean Corpuscular Hemoglobin 32.5 pg (25.0-34.0); Mean Corpuscular Hgb Conc 33.9 g/dL (32.0-36.0); Mean Platelet Volume 10.2 fL (9.4-12.4); Monocytes # (auto) 1.31 K/uL (0.11-0.59); Monocytes % (auto) 8.9 %; Neutrophils # (auto) 10.93 K/uL (1.40-6.50); Neutrophils % (auto) 73.9 %; Platelet Count 261 K/uL (130-400); RDW Coefficient of Variation 13.9 % (11.5-14.5); RDW Standard Deviation 48.7 fL (36.4-46.3); Red Blood Count 4.24 M/uL (4.70-6.10); White Blood Count 14.78 K/ul (4.8-10.8)
[2023-04-01 09:34] LABS: BUN Creatinine Ratio 11.1 (10-20); Calcium 8.3 mg/dl (8.6-10.3); Creatinine Clr Calc Pharmacy 86.5 ml/min; Est GFR (African American) 107.2 ml/min; Est GFR (Non-African American) 92.5 ml/min; Potassium 4.3 mmol/L (3.5-5.1)
[2023-04-01] MEDS: APIXABAN 5 MG TABLET PO SCH ×2 (10:14→20:32)
[2023-04-01] MEDS ORDERED: Nursing to Pharmacy Communication SCH (10:15)
--- NOTE | 2023-04-01 15:40 | History & Physical Bridge Note ---
Date of Service April 01, 2023 History & Physical Bridge Note I have examined the patient, reviewed the History & Physical and in the interval since the performance of the History & Physical I have noted the following changes of clinical significance: Pt feeling much better. He did vomit one time this AM that had a little pink tinge but he also reported he had a pavon popsicle in the ER. Saw him later again in the afternoon and he was feeling much better, no further fevers, no more nausea, ate regular food. Vitals reviewed NAD, AAOx3 RRR no mgr CTAB no wcr ABd +BS soft NT ND : Fuentes in place with clear yellow urine Ext-legs flaccid, trace pitting edema legs bilat Continue current care, ok to continue ELiquis but AM dose held for possible hematemesis today. With AG metabolic acidosis-checked lactate and negative Likely dry-increased IVFs to 125mL/hr follow labs in AM Will consult Urology given bladder stones and infection
[2023-04-01] MEDS: LIDOCAINE 5% 1 PATCH TD SCH (20:33)
[2023-04-01] MEDS: SIMVASTATIN 20 MG TAB PO SCH (20:33)
[2023-04-01] MEDS ORDERED: PROSTATE COMPLETE PO SCH (21:00)
[2023-04-02] MEDS: D5W AND NSS 1,000 ML IV SCH ×2 (02:30→10:56)
[2023-04-02] MEDS ORDERED: LACTATED RINGER'S 1,000 ML IV ONE (03:24)
[2023-04-02] MEDS: PIPERACILLIN/TAZOBACTAM 4.5 GM in DEXTROSE 5% 100 ML IV SCH ×3 (05:03→20:48)
[2023-04-02] MEDS: SOD PHOSPHATE/SOD BIPHOSPHATE ENEMA 132 ML BTL PR PRN (07:47)
--- NOTE | 2023-04-02 08:13 | Electrocardiogram Report ---
Test Reason : Blood Pressure : / mmHG Vent. Rate : 116 BPM Atrial Rate : 101 BPM P-R Int : 000 ms QRS Dur : 070 ms QT Int : 340 ms P-R-T Axes : 000 068 052 degrees QTc Int : 472 ms Poor data quality, interpretation may be adversely affected Atrial fibrillation with rapid ventricular response Minor Nonspecific ST elevation multiple leads, consider early pericarditis Abnormal ECG When compared with ECG of 31-MAR-2023 20:53, Atrial fibrillation has replaced Sinus rhythm Nonspecific ST elevation now present Confirmed by Adeel Cortez ([id number]) on 04/02/2023 8:12:57 AM Referred By: REFERRED SELF Confirmed By:Adeel Cortez
--- NOTE | 2023-04-02 08:17 | Urology Consultation ---
Date of Consultation April 02, 2023 Assessment & Plan (1) Urinary tract infection: (2) Neurogenic bladder: (3) Chronic indwelling Love catheter: (4) Bladder stones: Plan 58yo/M with a hx of neurogenic bladder managed with chronic love catheter admitted with acute UTI and dehydration. He is afebrile and hemodynamically stable. Labs show a leukocytosis of 14 and normal renal function. Continue to trend. Urine culture from 03/24 with more than 3 types of organisms, all high counts. Urine and blood cultures 03/31 are pending. On Zosyn. Love catheter intact, draining clear yellow urine with some sediment. CT abd pelvis 03/28 and 03/31 showing numerous bladder stones. No plan for intervention at this time. Will arrange a follow-up with our service to discuss treatment of the bladder stones after his infection has been treated. However, if he remains inpatient, can consider possible intervention possibly next week after several days of antibiotics. Continue antibiotics and tailor as culture data becomes available. Maintain love catheter. Urology will follow peripherally. Please contact us any further questions, concerns, or changes in patient status. History of Present Illness Attending Physician: Araseli Palma MD History of Present Illness 58-year-old male with past medical history significant for history of spinal cord injury at C5-C6 level with residual paresis, history of neurogenic bladder with chronic indwelling Love catheter, GERD, hyperlipidemia, history of DVT on anticoagulation with Eliquis who presents to the emergency department with complaints of nausea, vomiting, subjective fever symptoms at home. Upon initial evaluation in the ED, patient was also found to have a low blood sugar and low blood pressure. He was admitted to medicine for further management of acute UTI and dehydration. Patient has a chronic indwelling Love catheter and was recently seen in the ED 03/28 for acute UTI symptoms as well. UA was suspicious for infection. He was discharged on Augmentin. UC&S finalized with more than 3 types of organisms, all high counts. In the ED, he was afebrile and hemodynamically stable. Labs showing a leukocytosis of 13.89 and creatinine 0.99. UA with evidence of infection. Urine and blood cultures sent. Patient was given a dose of IV Zosyn in the ED. CT abdomen pelvis from 03/28 showing left renal atrophy is seen, left renal cyst is noted, numerous bladder stones. CT abdomen pelvis from 03/31 again showing numerous bladder stones, love catheter within the bladder, 2.8 left renal cyst, simple bilateral fat- containing adrenal gland nodules consistent with adenomas. Patient is known to the urology service. Has previously followed with Dr. Campbell, last seen 01/2022. Hx of neurogenic bladder managed with chronic love. Hx of bladder stones with prior cystolitholopaxy in 2017. Last PSA 01/2023 was 0.949. Patient examined at bedside this AM. Awake, resting bed on arrival. No acute distress. Denies fevers, chills, nausea, vomiting. Denies pain or discomfort. Love catheter intact, draining clear yellow urine with sediment. Patient exchanges catheters himself, last exchanged approximately 4 days ago. Allergies Allergy/AdvReac Type Severity Reaction Status Date / Time No Known Allergies Allergy Verified 03/28/23 16:36 Home Medications Medication Instructions Recorded Confirmed Type cholecalciferol (vitamin D3) 25 2,000 unit PO QAM 06/08/19 04/01/23 History mcg (1,000 unit) capsule (Vitamin D3) baclofen 20 mg tablet 60 mg PO BID #540 tabs 06/17/22 04/01/23 Rx oxybutynin chloride 5 mg tablet 10 mg PO BID #360 tabs 06/17/22 04/01/23 Rx omeprazole 40 mg capsule,delayed 40 mg PO BID #180 caps 07/22/22 04/01/23 Rx release gabapentin 300 mg capsule 300 mg PO Q12H #60 caps 08/29/22 04/01/23 Rx simvastatin 20 mg tablet 20 mg PO HS #90 tabs 10/10/22 04/01/23 Rx catheter #2 ea 11/01/22 03/10/23 Rx diaper,brief,adult,disposable #150 ea 11/01/22 03/10/23 Rx (Depend Underwear For Men Large-Extra Large) drainage bag (Curity Bedside #2 ea 11/01/22 03/10/23 Rx Drainage Bag) incontinence pad, liner, disp #60 ea 11/01/22 03/10/23 Rx (Total Care Underpads) urinary bag (Bardia Urinary #2 ea 11/01/22 03/10/23 Rx Drainage Bag) urinary bag accessories (Extension #2 ea 11/01/22 03/10/23 Rx Tubing w-[facility] [place]) latex gloves (Latex Gloves, Large) #250 ea 11/26/22 03/10/23 Rx famotidine 20 mg tablet (Pepcid) 20 mg PO BID #180 tabs 12/03/22 04/01/23 Rx apixaban 5 mg tablet (Eliquis) 5 mg PO BID #60 tabs 03/10/23 04/01/23 Rx prostate complete 1 tab PO HS 03/10/23 04/01/23 History amoxicillin 875 mg-potassium 1 tab PO BID #14 tabs 03/28/23 04/01/23 Rx clavulanate 125 mg tablet magnesium oxide 500 mg tablet 500 mg PO QAM 03/28/23 04/01/23 History oxycodone 5 mg tablet 5 mg PO Q8H PRN pain #6 tabs 03/28/23 04/01/23 Rx lidocaine 5 % topical patch 1 patch topical DAILY 04/01/23 04/01/23 History nystatin 100,000 unit/gram topical 1 applic topical BID 04/01/23 04/01/23 History powder Patient History Medical History (Updated 04/02/23 @ 11:35 by Araseli Palma MD) Acute hemorrhoid Bladder stones HX Deep vein thrombosis 1991 Fusion of spine [place]UMBAR [place] GERD (gastroesophageal reflux disease) Branscomb filter in place 1991 [place] History of DVT (deep vein thrombosis) History of gastrostomy tube placement Hyperlipidemia Indwelling urinary catheter present Insomnia Nephrolithiasis Neurogenic bladder 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 Paroxysmal atrial fibrillation Spinal cord injury JUNE 1992 Surgical History History of cystoscopy History of surgery "RT/LEFT HAMSTRING AND HIP RELEASES" History of tooth extraction History of tracheostomy Family History Father CHF (congestive heart failure) Mother Diabetes Brother Hypertension Dyslipidemia Diabetes Sister Psychiatric disorder Social History Smoking Status: Current every day smoker Tobacco Type: Cigarettes Age Started Using Tobacco: 15; packs per day: 1; Cigarettes Per Day: 12; Second Hand Exposure: No; Do You Dip or Chew Tobacco: No; Hx Alcohol Use: Yes Alcohol type: beer Alcohol Intake Frequency: 2-4 x/Month Hx Substance Use: Yes Prescribed Medications: Marijuana Last Used Substance Other:: 2019 Preferred Language: Kyrgyz Communication Ability: Effective Hearing Ability: Normal 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: No Beliefs That Will Affect Care: None marital status: Single Current Living Situation: Significant Other Current Living Situation Comment: lives with zulema smalls current occupational status: disabled Feels Safe at Home: Yes Childhood Exposure to Second-Hand Smoke: Yes Diet: regular caffeine: Yes Dental Care, Regularly: No Physical Activity Frequency: Does not Exercise Physical Activity Frequency Comment: physically disabled Seatbelt Use: always Sunscreen Use: Yes Assistive Devices: Hospital Bed, Scooter/Electric Scooter and Slide Board Review of Systems Review of Systems: All systems reviewed & are unremarkable except as noted in HPI & below Physical Exam Constitutional: no acute distress Neck: normal visual inspection Respiratory: no respiratory distress and no labored breathing Musculoskeletal: Head/Neck/Chest: normocephalic Skin: No visible rashes or lesions to exposed skin areas Neurologic: awake Paralysis of the lower extremities secondary to his paraplegia Psychiatric: A+Ox3, euthymic affect Genitourinary: Love catheter intact, draining clear yellow urine with sediment noted in tubing Results & Data Vital Signs (Past 12 Hours) Vital Signs Temp Pulse Resp BP Pulse Ox O2 Del Method 04/02/23 06:28 131 H 122/81 04/02/23 05:10 86 96/60 L 04/02/23 03:30 79/51 L 04/02/23 03:54 36.6 C 99 H 18 93 Room Air 04/01/23 22:53 36.7 C 90 18 97/61 L 97 Room Air 04/01/23 20:03 36.7 C 78 18 100/62 97 Room Air PG Care Time/CCT Total # of Minutes Spent Total Time Spent with Patient: Total time spent is greater than 50% in coordination of care (as documented) at patient's floor/unit and/or counseling patient: Coding Level of Care Code 40854 IN/OBS CONSULT LVL 3,45M Diagnoses Urinary tract infection N30.01 Hematuria presence: with hematuria Urinary tract infection type: acute cystitis Neurogenic bladder N31.9 Chronic indwelling Love catheter Z97.8 Bladder stones N21.0 (1) Urinary tract infection Hematuria presence: with hematuria Urinary tract infection type: acute cystitis Qualified Code(s): N30.01 - Acute cystitis with hematuria
[2023-04-02] MEDS: CHOLECALCIFEROL 1,000 UNITS 25 MCG TAB PO SCH (08:38)
[2023-04-02] MEDS: GABAPENTIN 300 MG CAP PO SCH ×2 (08:38→20:51)
[2023-04-02] MEDS: MAGNESIUM OXIDE 400 MG TAB PO SCH (08:38)
[2023-04-02] MEDS: PANTOprazole 40 MG TAB PO SCH ×2 (08:38→20:49)
[2023-04-02] MEDS: BACLOFEN 20 MG TAB PO SCH ×2 (08:38→20:50)
[2023-04-02] MEDS: oxyBUTYnin chloride 5 MG TAB PO SCH ×2 (08:39→20:51)
[2023-04-02] MEDS: APIXABAN 5 MG TABLET PO SCH ×2 (08:39→20:50)
[2023-04-02] MEDS: FAMOTIDINE 20 MG TAB PO SCH ×2 (08:39→20:58)
[2023-04-02 09:23] LABS: Basophils # (auto) 0.01 K/uL (0-0.2); Basophils % (auto) 0.1 %; Eosinophils # (auto) 0.07 K/uL (0-0.50); Eosinophils % (auto) 0.9 %; Hematocrit (blood only) 33.4 % (42.0-52.0); Hemoglobin 11.7 g/dl (14.0-18.0); Immature Granulocytes # (auto) 0.02 K/uL (0.01-0.20); Immature Granulocytes % (auto) 0.3 %; Lymphocytes # (auto) 1.43 K/uL (1.2-3.4); Lymphocytes % (auto) 18.6 %; Mean Corpuscular Hemoglobin 33.1 pg (25.0-34.0); Mean Corpuscular Volume 94.4 fL (80.0-100.0); Mean Platelet Volume 10.8 fL (9.4-12.4); Monocytes # (auto) 0.64 K/uL (0.11-0.59); Monocytes % (auto) 8.3 %; Neutrophils % (auto) 71.8 %; Platelet Count 194 K/uL (130-400); RDW Coefficient of Variation 14.1 % (11.5-14.5); RDW Standard Deviation 48.9 fL (36.4-46.3); Red Blood Count 3.54 M/uL (4.70-6.10); White Blood Count 7.67 K/ul (4.8-10.8)
[2023-04-02] MEDS ORDERED: bisacodyL 10 MG SUPP PR STA (09:33)
[2023-04-02 09:45] LABS: Potassium 3.3 mmol/L (3.5-5.1)
[2023-04-02 09:49] LABS: Albumin Globulin Ratio 1.5 (0.9-2); Albumin Level 3.2 gm/dl (3.4-5.0); BUN Creatinine Ratio 8.5 (10-20); Bilirubin,Total 0.5 mg/dl (0.2-1.0); Calcium 8.1 mg/dl (8.6-10.3); Creatinine Clr Calc Pharmacy 115.1 ml/min; Est GFR (African American) 118.2 ml/min; Globulin 2.1 gm/dl (2.5-4.0); Magnesium 1.5 mg/dl (1.7-2.4); Total Protein 5.3 gm/dl (6.0-8.3)
[2023-04-02] MEDS ORDERED: POTASSIUM CHLORIDE CRTAB 20 MEQ TABCR PO STA (10:48)
[2023-04-02] MEDS: DOCUSATE SODIUM/SENNA 50/8.6MG TAB PO SCH (11:01)
[2023-04-02] MEDS: MAGNESIUM SULFATE / D5W 1 GM/100 ML BAG IV SCH ×3 (11:02→14:52)
[2023-04-02] MEDS ORDERED: LACTATED RINGER'S 500 ML IV ONE (11:30)
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
[2023-04-02] MEDS: LIDOCAINE 5% 1 PATCH TD SCH (20:49)
[2023-04-02] MEDS: SIMVASTATIN 20 MG TAB PO SCH (20:51)
[2023-04-03] MEDS: PIPERACILLIN/TAZOBACTAM 4.5 GM in DEXTROSE 5% 100 ML IV SCH ×3 (05:30→20:22)
[2023-04-03 07:38] LABS: Basophils % (auto) 0.3 %; Eosinophils % (auto) 2.5 %; Hematocrit (blood only) 33.5 % (42.0-52.0); Hemoglobin 11.9 g/dl (14.0-18.0); Immature Granulocytes % (auto) 0.4 %; Lymphocytes # (auto) 1.87 K/uL (1.2-3.4); Mean Corpuscular Hemoglobin 32.8 pg (25.0-34.0); Mean Corpuscular Hgb Conc 35.5 g/dL (32.0-36.0); Mean Corpuscular Volume 92.3 fL (80.0-100.0); Mean Platelet Volume 10.5 fL (9.4-12.4); Monocytes % (auto) 8.1 %; Neutrophils # (auto) 4.77 K/uL (1.40-6.50); Neutrophils % (auto) 63.7 %; Platelet Count 200 K/uL (130-400); RDW Coefficient of Variation 14.1 % (11.5-14.5); Red Blood Count 3.63 M/uL (4.70-6.10); White Blood Count 7.49 K/ul (4.8-10.8)
[2023-04-03 07:39] LABS: Basophils # (auto) 0.02 K/uL (0-0.2); Eosinophils # (auto) 0.19 K/uL (0-0.50); Immature Granulocytes # (auto) 0.03 K/uL (0.01-0.20); Monocytes # (auto) 0.61 K/uL (0.11-0.59)
[2023-04-03 08:07] LABS: BUN Creatinine Ratio 14.1 (10-20); Calcium 8.4 mg/dl (8.6-10.3); Creatinine Clr Calc Pharmacy 125.1 ml/min; Est GFR (African American) 123.3 ml/min; Est GFR (Non-African American) 106.4 ml/min; Magnesium 1.7 mg/dl (1.7-2.4); Potassium 3.5 mmol/L (3.5-5.1)
[2023-04-03 08:23] LABS: Estimated Average Glucose 105 mg/dl; Hemoglobin A1C 5.3 % (4.5-5.6)
[2023-04-03] MEDS: APIXABAN 5 MG TABLET PO SCH ×2 (08:32→20:23)
[2023-04-03] MEDS: PANTOprazole 40 MG TAB PO SCH ×2 (08:33→20:25)
[2023-04-03] MEDS: BACLOFEN 20 MG TAB PO SCH ×2 (08:33→20:23)
[2023-04-03] MEDS: FAMOTIDINE 20 MG TAB PO SCH ×2 (08:33→20:23)
[2023-04-03] MEDS: MAGNESIUM OXIDE 400 MG TAB PO SCH (08:33)
[2023-04-03] MEDS: GABAPENTIN 300 MG CAP PO SCH ×2 (08:33→20:23)
[2023-04-03] MEDS: CHOLECALCIFEROL 1,000 UNITS 25 MCG TAB PO SCH (08:33)
[2023-04-03] MEDS: DOCUSATE SODIUM/SENNA 50/8.6MG TAB PO SCH (08:34)
[2023-04-03] MEDS: oxyBUTYnin chloride 5 MG TAB PO SCH ×2 (08:34→20:26)
[2023-04-03] MEDS ORDERED: POTASSIUM CHLORIDE CRTAB 20 MEQ TABCR PO STA (09:06)
[2023-04-03] MEDS: MAGNESIUM SULFATE / D5W 1 GM/100 ML BAG IV SCH ×2 (09:45→11:20)
[2023-04-03] MEDS: LIDOCAINE 5% 1 PATCH TD SCH (20:24)
[2023-04-03] MEDS: SIMVASTATIN 20 MG TAB PO SCH (20:25)
[2023-04-03] MEDS ORDERED: bisacodyL 10 MG SUPP PR PRN (20:35)
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
[2023-04-04] MEDS: PIPERACILLIN/TAZOBACTAM 4.5 GM in DEXTROSE 5% 100 ML IV SCH (04:20)
[2023-04-04 07:15] LABS: Basophils # (auto) 0.03 K/uL (0-0.2); Basophils % (auto) 0.4 %; Eosinophils # (auto) 0.22 K/uL (0-0.50); Eosinophils % (auto) 2.6 %; Hematocrit (blood only) 36.2 % (42.0-52.0); Hemoglobin 12.6 g/dl (14.0-18.0); Immature Granulocytes # (auto) 0.03 K/uL (0.01-0.20); Immature Granulocytes % (auto) 0.4 %; Lymphocytes # (auto) 2.28 K/uL (1.2-3.4); Lymphocytes % (auto) 26.7 %; Mean Corpuscular Hemoglobin 32.9 pg (25.0-34.0); Mean Corpuscular Hgb Conc 34.8 g/dL (32.0-36.0); Mean Corpuscular Volume 94.5 fL (80.0-100.0); Mean Platelet Volume 10.9 fL (9.4-12.4); Monocytes # (auto) 0.67 K/uL (0.11-0.59); Monocytes % (auto) 7.8 %; Neutrophils # (auto) 5.31 K/uL (1.40-6.50); Neutrophils % (auto) 62.1 %; Platelet Count 212 K/uL (130-400); RDW Coefficient of Variation 14.3 % (11.5-14.5); RDW Standard Deviation 49.4 fL (36.4-46.3); Red Blood Count 3.83 M/uL (4.70-6.10); White Blood Count 8.54 K/ul (4.8-10.8)
[2023-04-04 07:34] LABS: BUN Creatinine Ratio 11.3 (10-20); Calcium 8.6 mg/dl (8.6-10.3); Creatinine Clr Calc Pharmacy 112.7 ml/min; Est GFR (African American) 118.2 ml/min; Magnesium 1.8 mg/dl (1.7-2.4); Potassium 3.9 mmol/L (3.5-5.1)
[2023-04-04] MEDS: FAMOTIDINE 20 MG TAB PO SCH (08:37)
[2023-04-04] MEDS: BACLOFEN 20 MG TAB PO SCH (08:37)
[2023-04-04] MEDS: APIXABAN 5 MG TABLET PO SCH (08:38)
[2023-04-04] MEDS: oxyBUTYnin chloride 5 MG TAB PO SCH (08:38)
[2023-04-04] MEDS: MAGNESIUM OXIDE 400 MG TAB PO SCH (08:38)
[2023-04-04] MEDS: CHOLECALCIFEROL 1,000 UNITS 25 MCG TAB PO SCH (08:38)
[2023-04-04] MEDS: GABAPENTIN 300 MG CAP PO SCH (08:38)
[2023-04-04] MEDS: DOCUSATE SODIUM/SENNA 50/8.6MG TAB PO SCH (08:38)
[2023-04-04] MEDS: PANTOprazole 40 MG TAB PO SCH (08:38)
[2023-04-04] MEDS: SOD PHOSPHATE/SOD BIPHOSPHATE ENEMA 132 ML BTL PR PRN (08:41)
[2023-04-04] MEDS ORDERED: NYSTATIN POWDER 15GM BTL EXT SCH (09:45)
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
[2023-04-04] MEDS ORDERED: levoFLOXacin 750 MG TAB PO ONE (13:36)
== END 2023-04-04 14:32 | disposition home or self-care (01) | DRG 698 ==
LOC: ED 20:44 → SUATTDRO 04-01 04:09 → 2S 04-01 04:09

== ENCOUNTER 2023-04-06 14:51 | Inpatient (IN) ==
[2023-04-06 16:28] LABS: Basophils # (auto) 0.01 K/uL (0-0.2); Basophils % (auto) 0.1 %; Eosinophils # (auto) 0.08 K/uL (0-0.50); Eosinophils % (auto) 0.7 %; Hematocrit (blood only) 37.1 % (42.0-52.0); Immature Granulocytes # (auto) 0.02 K/uL (0.01-0.20); Immature Granulocytes % (auto) 0.2 %; Lymphocytes # (auto) 1.39 K/uL (1.2-3.4); Lymphocytes % (auto) 12.1 %; Mean Corpuscular Hemoglobin 32.9 pg (25.0-34.0); Mean Corpuscular Volume 93.9 fL (80.0-100.0); Mean Platelet Volume 10.8 fL (9.4-12.4); Monocytes # (auto) 0.73 K/uL (0.11-0.59); Monocytes % (auto) 6.4 %; Neutrophils # (auto) 9.25 K/uL (1.40-6.50); Neutrophils % (auto) 80.5 %; Platelet Count 234 K/uL (130-400); RDW Coefficient of Variation 14.4 % (11.5-14.5); RDW Standard Deviation 49.2 fL (36.4-46.3); Red Blood Count 3.95 M/uL (4.70-6.10); White Blood Count 11.48 K/ul (4.8-10.8)
[2023-04-06] MEDS ORDERED: ONDANSETRON INJ 2 MG/ML 2 ML VIAL IV STA (16:31)
[2023-04-06] MEDS ORDERED: SODIUM CHLORIDE 0.9% 1000ML 1,000 ML IV ONE (16:31)
[2023-04-06 16:35] LABS: Albumin Globulin Ratio 1.4 (0.9-2); Albumin Level 3.8 gm/dl (3.4-5.0); BUN Creatinine Ratio 12.9 (10-20); Bilirubin,Total 0.5 mg/dl (0.2-1.0); Calcium 9.1 mg/dl (8.6-10.3); Creatinine Clr Calc Pharmacy 113.8 ml/min; Est GFR (African American) 118.9 ml/min; Est GFR (Non-African American) 102.6 ml/min; Globulin 2.7 gm/dl (2.5-4.0); Potassium 3.8 mmol/L (3.5-5.1); Total Protein 6.5 gm/dl (6.0-8.3)
--- NOTE | 2023-04-06 16:47 | Emergency Department Note ---
Impression & Plan Acute left flank pain, Paraplegia, Acute UTI, Leukocytosis, Failure of outpatient treatment ED Provider Note NAME: NIKI CHOI AGE: 58 SEX: M : 1965 ARRIVES VIA: Ambulance INFORMANT: [Patient] ED PROVIDER(S): [Denys Santa MD] CHIEF COMPLAINT: Abdominal pain HISTORY OF PRESENT ILLNESS: The patient is a 58-year-old male who was discharged from the hospital 2 days ago. He is currently on Levaquin. He was in the hospital for sepsis and UTI. The patient denies any fever. He has noticed some increased spasticity of his muscles. He states this oftentimes happens when he is getting sick. He is paraplegic at the C6 level. The patient began noticing some moderate left-sided abdominal pain and left flank pain last evening, and the pain has persisted into today. There has been no cough or congestion. No shortness of breath. The patient does admit to some nausea and states he really has not eaten since being discharged in the hospital. The patient presents for evaluation by ambulance. PMHx/PSHx: See Below SOCIAL HISTORY: See Below. PHYSICAL EXAM: GENERAL: Patient is in no acute distress. HEENT: No acute trauma, normocephalic atraumatic, mucous membranes moist, no galileo al congestion. NECK: No stridor, no adenopathy, no meningismus, trachea is midline. LUNGS: Clear to auscultation bilaterally, no wheeze, no rhonchi, breath sounds equal. HEART: Without murmurs gallops or rubs, regular rate and rhythm. ABDOMEN: Soft, nontender, bowel sounds positive, no peritonitis. There is some abdominal distention noted. EXTREMITIES: No cyanosis or edema, no evidence for acute extremity trauma. NEUROLOGIC: Oriented x 3, no movement of the lower extremities. He can move both upper extremities. Excellent historian. SKIN: No rash, no jaundice, no diaphoresis. Groin: There is a Mcclure catheter in place. DIFFERENTIAL DIAGNOSIS: Failed outpatient management, diverticulitis, renal colic, pyelonephritis, dehydration, renal failure, UTI, among others. EMERGENCY DEPARTMENT COURSE/PROCEDURES: Prior/Outside records reviewed: Recent discharge summary. MEDICAL DECISION MAKING: There is a mild leukocytosis, this could be consistent with infection. The white count has elevated since his recent discharge. There is a mild anemia with a hemoglobin of 13. There was a normal platelet count. No renal failure or significant electrolyte abnormality. No concerning liver enzyme elevation. No pancreatitis. COVID test returned negative. Abdominal and pelvis CT does not show any urinary obstruction. The patient does have bladder stones. No findings of a acute diverticulitis or any acute surgical process. On exam, the patient seemed fairly comfortable. He was not in distress. I did review his urine culture results from his last hospitalization. The infection was resistant to Levaquin, sensitive to Zosyn. Patient received IV saline, 1 L. He was given IV Zofran and IV Zosyn. The patient appears to be worsening from his UTI. He is on the Levaquin which now shows resistance on culture. He is failing outpatient treatment. Patient will be hospitalized for IV antibiotic therapy. I did speak with the patient and case management, the on-call hospitalist was consulted. DISPOSITION: Patient's presentation and findings warrant a hospital stay. Past Med/Surg History Medical History Acute hemorrhoid Bladder stones HX Deep vein thrombosis 1991 Fusion of spine LUMBAR ([facility]) GERD (gastroesophageal reflux disease) Ramiro filter in place 1991 IN [place] History of DVT (deep vein thrombosis) History of gastrostomy tube placement Hyperlipidemia Indwelling urinary catheter present Insomnia Nephrolithiasis Neurogenic bladder 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 Paroxysmal atrial fibrillation Spinal cord injury JUNE 1992 Surgical History History of cystoscopy History of surgery "RT/LEFT HAMSTRING AND HIP RELEASES" History of tooth extraction History of tracheostomy Family History Father CHF (congestive heart failure) Mother Diabetes Brother Hypertension Dyslipidemia Diabetes Sister Psychiatric disorder Social History Smoking Status: Current every day smoker Tobacco Type: Cigarettes Age Started Using Tobacco: 15; packs per day: 1; Cigarettes Per Day: 12; Second Hand Exposure: No; Do You Dip or Chew Tobacco: No; Hx Alcohol Use: Yes Alcohol type: beer Alcohol Intake Frequency: 2-4 x/Month Hx Substance Use: Yes Prescribed Medications: Marijuana Last Used Substance Other:: 2020 Preferred Language: Kinyarwanda Communication Ability: Effective Hearing Ability: Normal Health Coach Required: No Beliefs That Will Affect Care: Scientologist marital status: Single Current Living Situation: Significant Other Current Living Situation Comment: lives with zulema smalls current occupational status: disabled Feels Safe at Home: Yes Childhood Exposure to Second-Hand Smoke: Yes Diet: regular caffeine: Yes Dental Care, Regularly: No Physical Activity Frequency: Does not Exercise Physical Activity Frequency Comment: physically disabled Seatbelt Use: always Sunscreen Use: Yes Assistive Devices: Hospital Bed, Scooter/Electric Scooter and Slide Board Allergies Allergies Allergy/AdvReac Type Severity Reaction Status Date / Time No Known Allergies Allergy Verified 03/28/23 16:36 Home Meds Home Medications Medication Instructions Recorded Confirmed cholecalciferol (vitamin D3) 25 2,000 unit PO QAM 06/08/19 04/06/23 mcg (1,000 unit) capsule (Vitamin D3) prostate complete 1 tab PO HS 03/10/23 04/06/23 magnesium oxide 500 mg tablet 500 mg PO QAM 03/28/23 04/06/23 lidocaine 5 % topical patch 1 patch topical DAILY 04/01/23 04/06/23 nystatin 100,000 unit/gram topical 1 applic topical BID 04/01/23 04/06/23 powder Previous Rx's Medication Instructions Recorded baclofen 20 mg tablet 60 mg PO BID #540 tabs 06/17/22 oxybutynin chloride 5 mg tablet 10 mg PO BID #360 tabs 06/17/22 omeprazole 40 mg capsule,delayed 40 mg PO BID #180 caps 07/22/22 release gabapentin 300 mg capsule 300 mg PO Q12H #60 caps 08/29/22 simvastatin 20 mg tablet 20 mg PO HS #90 tabs 10/10/22 catheter #2 ea 11/01/22 diaper,brief,adult,disposable #150 ea 11/01/22 (Depend Underwear For Men Large-Extra Large) drainage bag (Curity Bedside #2 ea 11/01/22 Drainage Bag) incontinence pad, liner, disp #60 ea 11/01/22 (Total Care Underpads) urinary bag (Bardia Urinary #2 ea 11/01/22 Drainage Bag) urinary bag accessories (Extension #2 ea 11/01/22 [place]ing w-Connector [facility] [place] latex gloves (Latex Gloves, Large) #250 ea 11/26/22 famotidine 20 mg tablet (Pepcid) 20 mg PO BID #180 tabs 12/03/22 apixaban 5 mg tablet (Eliquis) 5 mg PO BID #60 tabs 03/10/23 oxycodone 5 mg tablet 5 mg PO Q8H PRN pain #6 tabs 03/28/23 levofloxacin 750 mg tablet 750 mg PO DAILY 4 days #4 tabs 04/04/23 Results & Data (ED) Vital Signs Vital Signs - 24 hr 04/06/23 15:06 04/06/23 15:22 04/06/23 15:10 Temperature 36.5 C Temperature Source Oral Pulse Rate 75 65 64 Pulse Rate [Left Apical] Respiratory Rate 18 20 Blood Pressure 143/87 H 143/87 H Blood Pressure [Right Arm] Blood Pressure Mean 105 105 Blood Pressure Mean [Right Arm] Pulse Oximetry 97 97 Oxygen Delivery Method Room Air Room Air Sepsis Recent Fever Within 48 Hours No Sepsis New/Unexplained Change in Mental Status N/A Sepsis Action Taken by Nursing No Action Required 04/06/23 16:30 04/06/23 17:00 04/06/23 17:30 Temperature Temperature Source Pulse Rate 65 72 69 Pulse Rate [Left Apical] Respiratory Rate 19 24 21 Blood Pressure 116/80 116/78 106/72 Blood Pressure [Right Arm] Blood Pressure Mean 92 90 83 Blood Pressure Mean [Right Arm] Pulse Oximetry 95 94 93 Oxygen Delivery Method Room Air Room Air Room Air Sepsis Recent Fever Within 48 Hours Sepsis New/Unexplained Change in Mental Status Sepsis Action Taken by Nursing 04/06/23 18:01 04/06/23 18:31 04/06/23 19:00 Temperature Temperature Source Pulse Rate 72 70 76 Pulse Rate [Left Apical] Respiratory Rate 17 15 25 H Blood Pressure 117/77 112/71 116/78 Blood Pressure [Right Arm] Blood Pressure Mean 90 84 90 Blood Pressure Mean [Right Arm] Pulse Oximetry 94 94 Oxygen Delivery Method Room Air Room Air Sepsis Recent Fever Within 48 Hours Sepsis New/Unexplained Change in Mental Status Sepsis Action Taken by Nursing 04/06/23 19:31 04/06/23 20:00 04/06/23 20:10 Temperature Temperature Source Pulse Rate 67 73 Pulse Rate [Left Apical] 71 Respiratory Rate 18 21 13 Blood Pressure 94/75 L 86/66 L Blood Pressure [Right Arm] 96/70 L Blood Pressure Mean 81 72 Blood Pressure Mean [Right Arm] 78 Pulse Oximetry 95 92 95 Oxygen Delivery Method Room Air Room Air Room Air Sepsis Recent Fever Within 48 Hours Sepsis New/Unexplained Change in Mental Status Sepsis Action Taken by Nursing 04/06/23 20:30 04/06/23 20:34 Temperature Temperature Source Pulse Rate 67 70 Pulse Rate [Left Apical] Respiratory Rate 16 Blood Pressure 99/77 L Blood Pressure [Right Arm] Blood Pressure Mean 84 Blood Pressure Mean [Right Arm] Pulse Oximetry 95 Oxygen Delivery Method Room Air Sepsis Recent Fever Within 48 Hours Sepsis New/Unexplained Change in Mental Status Sepsis Action Taken by Custodial Medications Current Medication List: was personally reviewed by me Laboratory Data Attestation: I reviewed the patient's lab results. 04/06/23 15:28 04/06/23 15:28 Lab Results 04/06/23 04/06/23 04/06/23 Range/Units 15:28 15:28 19:55 WBC 11.48 H (4.8-10.8) K/ul RBC 3.95 L (4.70-6.10) M/uL Hgb 13.0 L (14.0-18.0) g/dl Hct 37.1 L (42.0-52.0) % MCV 93.9 (80.0-100.0) fL MCH 32.9 (25.0-34.0) pg MCHC 35.0 (32.0-36.0) g/dL RDW Std Deviation 49.2 H (36.4-46.3) fL RDW Coeff of Vanessa 14.4 (11.5-14.5) % Plt Count 234 (130-400) K/uL MPV 10.8 (9.4-12.4) fL Immature Gran % (Auto) 0.2 % Neut % (Auto) 80.5 % Lymph % (Auto) 12.1 % Josephine % (Auto) 6.4 % Eos % (Auto) 0.7 % Baso % (Auto) 0.1 % Neut # (Auto) 9.25 H (1.40-6.50) K/uL Lymph # (Auto) 1.39 (1.2-3.4) K/uL Josephine # (Auto) 0.73 H (0.11-0.59) K/uL Eos # (Auto) 0.08 (0-0.50) K/uL Baso # (Auto) 0.01 (0-0.2) K/uL Immature Gran # (Auto) 0.02 (0.01-0.20) K/uL Sodium 140 (136-145) mmol/L Potassium 3.8 (3.5-5.1) mmol/L Chloride 106 (98-107) mmol/L Carbon Dioxide 25 (21-32) mmol/L Anion Gap 9 (3-11) BUN 9 (6-23) mg/dl Creatinine 0.70 (0.6-1.4) mg/dl Est Cr Clr Drug Dosing 113.8 ml/min Est GFR ( Amer) 118.9 ml/min Est GFR (Non-Af Amer) 102.6 ml/min BUN/Creatinine Ratio 12.9 (10-20) Glucose 109 H (70-99(Fasting)) mg/dl Calcium 9.1 (8.6-10.3) mg/dl Magnesium 2.0 (1.7-2.4) mg/dl Total Bilirubin 0.5 (0.2-1.0) mg/dl AST 21 (13-39) U/L ALT 17 (7-52) U/L Alkaline Phosphatase 58 (34-104) U/L Total Protein 6.5 (6.0-8.3) gm/dl Albumin 3.8 (3.4-5.0) gm/dl Globulin 2.7 (2.5-4.0) gm/dl Albumin/Globulin Ratio 1.4 (0.9-2) Lipase 26 (11-82) U/L SARS-CoV-2, RNA, NAAT NEGATIVE (NEGATIVE) Administered Medications Lactated Ringer's (Lr) 1,000 mls @ 999 mls/hr IV .Q1H1M ONE Stop: 04/06/23 21:18 Last Admin: 04/06/23 20:36 Dose: 999 mls/hr Documented By: DM Discontinued Medications Sodium Chloride (Nss 1000ml) 1,000 mls @ 999 mls/hr IV .Q1H1M ONE Stop: 04/06/23 17:31 Last Infusion: 04/06/23 17:35 Dose: 0 mls/hr Documented By: Admin: 04/06/23 17:01 Dose: 999 mls/hr Documented By: NH Piperacillin Sod/Tazobactam Sod (Zosyn) 4.5 gm in 120 mls @ 240 mls/hr IV NOW ONE Stop: 04/06/23 17:20 Last Infusion: 04/06/23 17:35 Dose: 0 mls/hr Documented By: Admin: 04/06/23 17:01 Dose: 240 mls/hr Documented By: NH Ondansetron HCl (Ondansetron Inj 2 Mg/Ml 2 Ml Vial) 4 mg IV NOW STA Stop: 04/06/23 16:32 Last Admin: 04/06/23 17:01 Dose: 4 mg Documented By: NH Imaging Data Radiologist's Impression: Abdomen/Pelvis CT 04/06/23 16:[address] WITHOUT CONTRAST CT DOSE: 1254.26 mGy.cm HISTORY: Acute left-sided abdominal pain left sided pain TECHNIQUE: Multiaxial CT images of the abdomen and pelvis were performed without contrast. A dose lowering technique was utilized adhering to the principles of ALARA. COMPARISON STUDY: 03/28/2023, 03/31/2023, 01/02/2017. FINDINGS: Mild cardiomegaly. Trace left pleural effusion. Mild subsegmental bi basilar atelectasis. No pneumatosis or pneumoperitoneum. Unremarkable spleen, moderately atrophic pancreas, and gallbladder with hepatic steatosis. Fatty sparing near the fabrice hepatis. Bilateral adrenal gland adenomata, 2.3 cm on the left and 1.4 cm on the right. Cortical thinning of the left greater than right kidneys with areas of cortical scarring on the left. No hydronephrosis. 3 cm cyst of the anterior interpolar left kidney. 6 mm proteinaceous versus hemorrhagic cyst of the inferior pole left kidney. Exophytic 1.1 cm lesion of the lateral interpolar left kidney with Hounsfield unit of 26. This is unchanged in 2017. 2 mm calcification of the superior pole left kidney. Decompressed blad robin with wall thickening and Mcclure catheter. Numerous large urinary bladder calculi measuring up to 2 cm. Atherosclerosis of the aorta. IVC filter. Tiny hiatal hernia. Mild colonic diverticulosis. Mild colonic fecal retention. Normal. No acute fracture. Unremarkable soft tissues. IMPRESSION: 1. No acute intra-abdominal or intrapelvic abnormality. 2. No bowel obstruction or bowel wall thickening. 3. Numerous large urinary bladder calculi. 4. Trace left pleural effusion with mild left basilar atelectasis. 5. Additional findings as above. ACT 112: Negative or not required by law. The above report was generated using voice recognition software. It may contain grammatical, syntax or spelling errors. Electronically signed by: Mannie Rosales M.D. 04/06/2023 5:39 PM Discharge Plan Visit Data Chief Complaint: Abdominal Pain ED Provider: Denys Santa Discharge Problem: Acute left flank pain, Paraplegia, Acute UTI, Leukocytosis, Failure of outpatient treatment Patient Disposition: Admitted As Inpatient Condition: Fair Forms Stand Alone Forms: [facility] Mayi Zhaopin Prescriptions Prescriptions: No Action baclofen 20 mg tablet 60 mg PO BID Qty: 540 3RF oxybutynin chloride 5 mg tablet 10 mg PO BID Qty: 360 3RF omeprazole 40 mg capsule,delayed release(DR/EC) 40 mg PO BID Qty: 180 3RF simvastatin 20 mg tablet 20 mg PO HS Qty: 90 3RF (DME) catheter Misc See Rx Instructions .Route Qty: 2 11RF Rx Instructions: As directed (DME) Depend Underwear For Men L-XL Misc See Rx Instructions .Route Qty: 150 11RF Rx Instructions: 5 per day (DME) Curity Bedside Drainage Bag Misc See Rx Instructions .Route Qty: 2 11RF Rx Instructions: As directed (DME) Total Care Underpads Pad See Rx Instructions .Route Qty: 60 11RF Rx Instructions: As directed (DME) Bardia Urinary Drainage Bag Misc See Rx Instructions .Route Qty: 2 11RF Rx Instructions: As directed (DME) Extension Tubing w-Connector Misc See Rx Instructions .Route Qty: 2 11RF Rx Instructions: As directed (DME) latex gloves [Latex Gloves, Large] Misc See Rx Instructions .Route Qty: 250 3RF Rx Instructions: As directed famotidine [Pepcid] 20 mg tablet 20 mg PO BID Qty: 180 3RF prostate complete 1 tab PO HS Eliquis 5 mg tablet 5 mg PO BID Qty: 60 12RF gabapentin 300 mg capsule 300 mg PO Q12H Qty: 60 11RF cholecalciferol (vitamin D3) [Vitamin D3] 1,000 unit Capsule 2,000 unit PO QAM magnesium oxide 500 mg Tablet 500 mg PO QAM oxycodone 5 mg tablet 5 mg PO Q8H PRN (Reason: pain) Qty: 6 0RF lidocaine 5 % adhesive patch,medicated 1 patch topical DAILY Rx Instructions: apply 1 patch daily for low back painleave on most painful area up to 12 hours nystatin 100,000 unit/gram powder 1 applic TOPICAL BID Rx Instructions: apply to rash levofloxacin 750 mg tablet 750 mg PO DAILY 4 Days Qty: 4 0RF Referrals Referrals: Talon Verduzco MD [Primary Care Provider] -
[2023-04-06] MEDS ORDERED: PIPERACILLIN/TAZOBACTAM 4.5 GM/120 ML BAG IV ONE (16:51)
--- NOTE | 2023-04-06 17:41 | CT Scan Report ---
ABDOMEN AND PELVIS CT WITHOUT CONTRAST CT DOSE: 1254.26 mGy.cm HISTORY: Acute left-sided abdominal pain left sided pain TECHNIQUE: Multiaxial CT images of the abdomen and pelvis were performed without contrast. A dose lo wering technique was utilized adhering to the principles of ALARA. COMPARISON STUDY: 03/28/2023, 03/31/2023, 01/02/2017. FINDINGS: Mild cardiomegaly. Trace left pleural effusion. Mild subsegmental bibasilar atelectasis. No pneumatosis or pneumoperitoneum. Unremarkable spleen, moderately atrophic pancreas, and gallbladder with hepatic steatosis. Fatty sparing near the fabrice hepatis. Bilateral adrenal gland adenomata, 2.3 cm on the left and 1.4 cm on the right. Cortical thinning of the left greater than right kidneys with areas of cortical scarring on the left. No hydronephrosis. 3 cm cyst of the anterior interpolar left kidney. 6 mm proteinaceous versus hemorrhagic cyst of the inferior pole left kidney. Exophytic 1.1 c m lesion of the lateral interpolar left kidney with Hounsfield unit of 26. This is unchanged in 2017. 2 mm calcification of the superior pole left kidney. Decompressed bladder with wall thickening and F oley catheter. Numerous large urinary bladder calculi measuring up to 2 cm. Atherosclerosis of the ao rta. IVC filter. Tiny hiatal hernia. Mild colonic diverticulosis. Mild colonic fecal retention. Normal. No acute fract ure. Unremarkable soft tissues. IMPRESSION: 1. No acute intra-abdominal or intrapelvic abnormality. 2. No bowel obstruction or bowel wall thickening. 3. Numerous large urinary bladder calculi. 4. Trace left pleural effusion with mild left basilar atelectasis. 5. Additional findings as above. ACT 112: Negative or not required by law. The above report was generated using voice recognition software. It may contain grammatical, syntax o r spelling errors. Electronically signed by: Mannie Rosales M.D. 04/06/2023 5:39 PM
--- NOTE | 2023-04-06 18:44 | History & Physical Report ---
Date of Service April 06, 2023 Assessment & Plan (1) Catheter-associated urinary tract infection: Plan: Urine culture with Alcaligenes faecais - resistant to Levaquin that he was discharged on Continue Zosyn IV (2) Bladder stones: Plan: Follow up with urology once infection adequately treated (3) Paroxysmal atrial fibrillation: Plan: Anticoagulation with Eliquis Monitor on telemetry (4) Paraplegic spinal paralysis: (5) Chronic indwelling Mcclure catheter: Plan VTE Prophylaxis - Eliquis Diet - regular Disposition - admit to med/tele Admission and Anticipated Discharge Date Admission Date: April 07, 2023 History of Present Illness Chief Complaint: Muscle spasms, UTI Primary Care Provider: Talon Verduzco MD Steffanie Maciel is a 58 year old male who presents to the ER with increase in his muscle spasms and spasticity and nausea. He reports similar symptoms every time he gets a UTI. He was recently admitted to [facility] from April 01 - April 04, 2023 due to sepsis with UTI and bladder stones. This was treated with Zosyn and switched to Levaquin on discharge. He was discharged prior to urine culture results which was subsequently resistant to Levaquin. Allergies Allergy/AdvReac Type Severity Reaction Status Date / Time No Known Allergies Allergy Verified 03/28/23 16:36 Home Medications Medication Instructions Recorded Confirmed Type cholecalciferol (vitamin D3) 25 2,000 unit PO QAM 06/08/19 04/06/23 History mcg (1,000 unit) capsule (Vitamin D3) baclofen 20 mg tablet 60 mg PO BID #540 tabs 06/17/22 04/06/23 Rx oxybutynin chloride 5 mg tablet 10 mg PO BID #360 tabs 06/17/22 04/06/23 Rx omeprazole 40 mg capsule,delayed 40 mg PO BID #180 caps 07/22/22 04/06/23 Rx release gabapentin 300 mg capsule 300 mg PO Q12H #60 caps 08/29/22 04/06/23 Rx simvastatin 20 mg tablet 20 mg PO HS #90 tabs 10/10/22 04/06/23 Rx catheter #2 ea 11/01/22 04/06/23 Rx diaper,brief,adult,disposable #150 ea 11/01/22 04/06/23 Rx (Depend Underwear For Men Large-Extra Large) drainage bag (Curity Bedside #2 ea 11/01/22 04/06/23 Rx Drainage Bag) incontinence pad, liner, disp #60 ea 11/01/22 04/06/23 Rx (Total Care Underpads) urinary bag (Bardia Urinary #2 ea 11/01/22 04/06/23 Rx Drainage Bag) urinary bag accessories (Extension #2 ea 11/01/22 04/06/23 Rx Tubing w-Connector misc) latex gloves (Latex Gloves, Large) #250 ea 11/26/22 04/06/23 Rx famotidine 20 mg tablet (Pepcid) 20 mg PO BID #180 tabs 12/03/22 04/06/23 Rx apixaban 5 mg tablet (Eliquis) 5 mg PO BID #60 tabs 03/10/23 04/06/23 Rx prostate complete 1 tab PO HS 03/10/23 04/06/23 History magnesium oxide 500 mg tablet 500 mg PO QAM 03/28/23 04/06/23 History oxycodone 5 mg tablet 5 mg PO Q8H PRN pain #6 tabs 03/28/23 04/06/23 Rx lidocaine 5 % topical patch 1 patch topical DAILY 04/01/23 04/06/23 History nystatin 100,000 unit/gram topical 1 applic topical BID 04/01/23 04/06/23 History powder levofloxacin 750 mg tablet 750 mg PO DAILY 4 days #4 tabs 04/04/23 04/06/23 Rx Past Med/Surg History Medical History Acute hemorrhoid Bladder stones HX Deep vein thrombosis 1991 Fusion of spine LUMBAR ([facility]) GERD (gastroesophageal reflux disease) [place] filter in place 1991 [place] History of DVT (deep vein thrombosis) History of gastrostomy tube placement Hyperlipidemia Indwelling urinary catheter present Insomnia Nephrolithiasis Neurogenic bladder 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 Paroxysmal atrial fibrillation Spinal cord injury JUNE 1992 Surgical History History of cystoscopy History of surgery "RT/LEFT HAMSTRING AND HIP RELEASES" History of tooth extraction History of tracheostomy Family History Father CHF (congestive heart failure) Mother Diabetes Brother Hypertension Dyslipidemia Diabetes Sister Psychiatric disorder Social History Smoking Status: Current every day smoker Tobacco Type: Cigarettes Age Started Using Tobacco: 15; packs per day: 1; Cigarettes Per Day: 12; Second Hand Exposure: No; Do You Dip or Chew Tobacco: No; Hx Alcohol Use: Yes Alcohol type: beer Alcohol Intake Frequency: 2-4 x/Month Hx Substance Use: Yes Prescribed Medications: Marijuana Last Used Substance Other:: 2020 Preferred Language: Tongan Communication Ability: Effective Hearing Ability: Normal Bank Secrecy Act Officer Required: No Beliefs That Will Affect Care: None marital status: Single Current Living Situation: Other Current Living Situation Comment: Lives with Fiance current occupational status: disabled Feels Safe at Home: Yes Safety Concerns: Feels Safe At This Time Childhood Exposure to Second-Hand Smoke: Yes Diet: regular caffeine: Yes Dental Care, Regularly: No Physical Activity Frequency: Does not Exercise Physical Activity Frequency Comment: physically disabled Seatbelt Use: always Sunscreen Use: Yes Assistive Devices: Scooter/Electric Scooter Review of Systems Review of Systems: All systems reviewed & are unremarkable except as noted in HPI & below Physical Exam Constitutional: well developed; + not well nourished and no acute distress Respiratory: normal respiratory effort, lungs clear to auscultation Cardiovascular: Rate/Rhythm: regular rate and regular rhythm Heart Sounds: no murmur Extremities: + pedal edema (1+ b/l equal pitting edema) Gastrointestinal (Abdomen): Inspection/Auscultation: abdomen normal to inspection; abdomen not distended Percussion/Palpation: + abdomen tender (inc reased muscle spasticity with palpation of lower abdomen) and abdomen soft; no guarding and abdomen not rigid Neurologic: awake; + does not move all extremities (no movement of b/l LE and reduced RUE) and not confused Psychiatric: A+Ox3, euthymic affect Genitourinary: no CVA tenderness Results & Data Results & Data Vital Signs (Past 12 Hours) Vital Signs Temp Pulse Resp BP Pulse Ox O2 Del Method 04/06/23 18:01 72 17 117/77 04/06/23 17:30 69 21 106/72 93 Room Air 04/06/23 17:00 72 24 116/78 94 Room Air 04/06/23 16:30 65 19 116/80 95 Room Air 04/06/23 15:10 64 20 143/87 H 97 Room Air 04/06/23 15:22 65 04/06/23 15:06 36.5 C 75 18 143/87 H 97 Room Air Laboratory Results Abnormal lab results 04/06/23 04/06/23 Range/Units 15:28 15:28 WBC 11.48 H (4.8-10.8) K/ul RBC 3.95 L (4.70-6.10) M/uL Hgb 13.0 L (14.0-18.0) g/dl Hct 37.1 L (42.0-52.0) % RDW Std Deviation 49.2 H (36.4-46.3) fL Neut # (Auto) 9.25 H (1.40-6.50) K/uL [place] # (Auto) 0.73 H (0.11-0.59) K/uL Glucose 109 H (70-99(Fasting)) mg/dl Diagnostic Findings ABDOMEN AND PELVIS CT WITHOUT CONTRAST CT DOSE: 1254.26 mGy.cm HISTORY: Acute left-sided abdominal pain left sided pain TECHNIQUE: Multiaxial CT images of the abdomen and pelvis were performed without contrast. A dose lowering technique was utilized adhering to the principles of ALARA. COMPARISON STUDY: 03/28/2023, 03/31/2023, 01/02/2017. FINDINGS: Mild cardiomegaly. Trace left pleural effusion. Mild subsegmental bibasilar atelectasis. No pneumatosis or pneumoperitoneum. Unremarkable spleen, moderately atrophic pancreas, and gallbladder with hepatic steatosis. Fatty sparing near the fabrice hepatis. Bilateral adrenal gland adenomata, 2.3 cm on the left and 1.4 cm on the right. Cortical thinning of the left greater than right kidneys with areas of cortical scarring on the left. No hydronephrosis. 3 cm cyst of the anterior interpolar left kidney. 6 mm proteinaceous versus hemorrhagic cyst of the inferior pole left kidney. Exophytic 1.1 cm lesion of the lateral interpolar left kidney with Hounsfield unit of 26. This is unchanged in 2017. 2 mm calcification of the superior pole left kidney. Decompressed bladder with wall thickening and Mcclure catheter. Numerous large urinary bladder calculi measuring up to 2 cm. Atherosclerosis of the aorta. IVC filter. Tiny hiatal hernia. Mild colonic diverticulosis. Mild colonic fecal retention. Normal. No acute fracture. Unremarkable soft tissues. IMPRESSION: 1. No acute intra-abdominal or intrapelvic abnormality. 2. No bowel obstruction or bowel wall thickening. 3. Numerous large urinary bladder calculi. 4. Trace left pleural effusion with mild left basilar atelectasis. 5. Additional findings as above. Medications Administered ER Medications Given: NSS 1L bolus Ondansetron 4mg IV Zosyn 4.5g IV Code Status & VTE Plan Code Status Full VTE Prophylaxis Plan VTE Prophylaxis will be ordered: Yes PG Care Time/CCT Total # of Minutes Spent Total Time Spent with Patient: Total time spent is greater than 50% in coordination of care (as documented) at patient's floor/unit and/or counseling patient: Coding Level of Care Code 77677 INT INP/OBS CARE 255MIN Diagnoses Catheter-associated urinary tract infection T83.511A; N39.0 Bladder stones N21.0 Paroxysmal atrial fibrillation I48.0 Paraplegic spinal paralysis G82.20 Chronic indwelling Mcclure catheter Z97.8
[2023-04-06] MEDS ORDERED: LACTATED RINGER'S 1,000 ML IV ONE (20:18)
[2023-04-07] MEDS: BACLOFEN 20 MG TAB PO SCH ×3 (00:12→22:11)
[2023-04-07] MEDS: APIXABAN 5 MG TABLET PO SCH ×3 (00:12→22:13)
[2023-04-07] MEDS: FAMOTIDINE 20 MG TAB PO SCH ×3 (00:13→22:13)
[2023-04-07] MEDS: NYSTATIN POWDER 15GM BTL EXT SCH ×3 (00:13→22:13)
[2023-04-07] MEDS: oxyBUTYnin chloride 5 MG TAB PO SCH ×3 (00:14→22:12)
[2023-04-07] MEDS: SIMVASTATIN 20 MG TAB PO SCH ×2 (00:15→22:14)
[2023-04-07] MEDS: PANTOprazole 40 MG TAB PO SCH ×3 (00:15→22:11)
[2023-04-07] MEDS: PIPERACILLIN/TAZOBACTAM 4.5 GM in DEXTROSE 5% 100 ML IV SCH ×4 (00:16→23:00)
[2023-04-07 00:58] LABS: Appearance Urine Clear (Clear); Bacteria Urine Automated Negative (Negative); Bilirubin Urine Negative (Negative); Blood Urine Negative (Negative); Cast Urine Automated 0 /lpf (0-5); Color Urine Yellow; Epithelial Cell Urine Auto >30 /lpf (0-5); Glucose Urine UA Negative (Negative); Ketones Urine Negative (Negative); Leukocyte Esterase Urine 1+ (Negative); Nitrite Urine Negative (Negative); Protein Urine Negative (Negative); RBC Urine Automated 0-4 /hpf (0-4); Specific Gravity Urine 1.007 (1.000-1.030); Urobilinogen Urine Negative (Negative); pH Urine 7.5 (4.5-7.5)
[2023-04-07 07:34] LABS: Basophils # (auto) 0.03 K/uL (0-0.2); Basophils % (auto) 0.3 %; Eosinophils % (auto) 1.9 %; Hematocrit (blood only) 35.5 % (42.0-52.0); Immature Granulocytes # (auto) 0.03 K/uL (0.01-0.20); Immature Granulocytes % (auto) 0.3 %; Lymphocytes # (auto) 2.34 K/uL (1.2-3.4); Mean Corpuscular Hemoglobin 32.5 pg (25.0-34.0); Mean Corpuscular Hgb Conc 33.8 g/dL (32.0-36.0); Mean Corpuscular Volume 96.2 fL (80.0-100.0); Mean Platelet Volume 10.5 fL (9.4-12.4); Monocytes # (auto) 0.73 K/uL (0.11-0.59); Monocytes % (auto) 6.9 %; Neutrophils % (auto) 68.6 %; Platelet Count 223 K/uL (130-400); RDW Coefficient of Variation 14.5 % (11.5-14.5); RDW Standard Deviation 50.4 fL (36.4-46.3); Red Blood Count 3.69 M/uL (4.70-6.10); White Blood Count 10.63 K/ul (4.8-10.8)
[2023-04-07] MEDS: CHOLECALCIFEROL 1,000 UNITS 25 MCG TAB PO SCH (07:56)
[2023-04-07] MEDS: MAGNESIUM OXIDE 400 MG TAB PO SCH (07:56)
[2023-04-07 07:57] LABS: Calcium 8.7 mg/dl (8.6-10.3); Creatinine Clr Calc Pharmacy 99.2 ml/min; Est GFR (African American) 112.5 ml/min; Est GFR (Non-African American) 97.1 ml/min
[2023-04-07] MEDS: LIDOCAINE 5% 1 PATCH TD SCH (07:58)
[2023-04-07] MEDS: oxyCODONE HCL IR 5 MG TAB (IMMEDIATE RELEASE) PO PRN ×2 (15:44→22:14)
--- NOTE | 2023-04-07 20:33 | Urology Consultation ---
Date of Consultation April 07, 2023 Assessment & Plan (1) Bladder stones: The patient has been admitted on the hospitalist service. From a urologic perspective we recommend proceeding as follows: The patient's urine culture shows that the organism present is resistant to Levaquin which is what he is resistant to. He has been placed on Zosyn during this admission which should continue until further urine culture data is available I will make the patient n.p.o. after midnight in the event that he require cystoscopic intervention tomorrow. This determination will be made by urology attending upon evaluation in the morning I discussed the case with my attending physician Dr. Temple who agrees with the above plan History of Present Illness Reason for Consultation: Bladder calculi Attending Physician: Cory Corea History of Present Illness This is a 58-year-old male who was recently mated to [facility] from 04 01-04 02 of this year. Urology was consulted at that time as patient was noted to have neurogenic bladder, urinary tract infection with a chronic in dwelling Mcclure catheter as well as bladder stones. A CT scan of the abdomen pelvis on 03/28/2023 and 03/31/2023 showed numerous bladder stones. No acute urologic intervention was performed during this hospitalization. It was felt the patient required further treatment of his urinary tract infection and outpatient follow-up to discuss treatment of bladder stones was to be employed. Should be noted that the patient initially received Zosyn during this hospitalization but he was discharged home on oral Levaquin. The patient presented to the emergency department today as he notes that he has been having severe bladder spasms unable to manage at home. He denies any fevers, shakes, or chills. He denies any hematuria. He does note some minor left flank pain. As noted the patient has a chronic Mcclure catheter that he notes is functioning appropriately. He denies any nausea or vomiting or abdominal pain. Since arrival to the hospital the patient has had labs and imaging which I independent reviewed. Patient was noted to have numerous large urinary bladder calculi on an abdominal CT scan. There were no other acute intra-abdominal or intrapelvic abnormalities noted. There is no evidence of bowel obstruction. Labs included a CBC her white blood cell count was normal as well as the platelet count. Hemoglobin and hematocrit were 12.0 and 35.5. Chemistry profile showed sodium, potassium, BUN, and creatinine were all within normal range. Urinalysis showed 1+ leukocyte Estrace and 10-30 white blood cells per high-power field. There is no bacteria or nitrates on the study. Patient's previous culture data was reviewed and patient was noted to have Alcaligenes faecalis on a urine culture from 03/31/2023. Sensitivities show that this organism was resistant to Levaquin but sensitive to Zosyn. At the time of my interview the patient was resting comfortably in bed and he was in no distress. Allergies Allergy/AdvReac Type Severity Reaction Status Date / Time No Known Allergies Allergy Verified 03/28/23 16:36 Home Medications Medication Instructions Recorded Confirmed Type cholecalciferol (vitamin D3) 25 2,000 unit PO QAM 06/08/19 04/06/23 History mcg (1,000 unit) capsule (Vitamin D3) baclofen 20 mg tablet 60 mg PO BID #540 tabs 06/17/22 04/06/23 Rx oxybutynin chloride 5 mg tablet 10 mg PO BID #360 tabs 06/17/22 04/06/23 Rx omeprazole 40 mg capsule,delayed 40 mg PO BID #180 caps 07/22/22 04/06/23 Rx release gabapentin 300 mg capsule 300 mg PO Q12H #60 caps 08/29/22 04/06/23 Rx simvastatin 20 mg tablet 20 mg PO HS #90 tabs 10/10/22 04/06/23 Rx catheter #2 ea 11/01/22 04/06/23 Rx diaper,brief,adult,disposable #150 ea 11/01/22 04/06/23 Rx (Depend Underwear For Men Large-Extra Large) drainage bag (Curity Bedside #2 ea 11/01/22 04/06/23 Rx Drainage Bag) incontinence pad, liner, disp #60 ea 11/01/22 04/06/23 Rx (Total Care Underpads) urinary bag (Bardia Urinary #2 ea 11/01/22 04/06/23 Rx Drainage Bag) urinary bag accessories (Extension #2 ea 11/01/22 04/06/23 Rx Tubing w-Connector [facility]) latex gloves (Latex Gloves, Large) #250 ea 11/26/22 04/06/23 Rx famotidine 20 mg tablet (Pepcid) 20 mg PO BID #180 tabs 12/03/22 04/06/23 Rx apixaban 5 mg tablet (Eliquis) 5 mg PO BID #60 tabs 03/10/23 04/06/23 Rx prostate complete 1 tab PO HS 03/10/23 04/06/23 History magnesium oxide 500 mg tablet 500 mg PO QAM 03/28/23 04/06/23 History oxycodone 5 mg tablet 5 mg PO Q8H PRN pain #6 tabs 03/28/23 04/06/23 Rx lidocaine 5 % topical patch 1 patch topical DAILY 04/01/23 04/06/23 History nystatin 100,000 unit/gram topical 1 applic topical BID 04/01/23 04/06/23 History powder levofloxacin 750 mg tablet 750 mg PO DAILY 4 days #4 tabs 04/04/23 04/06/23 Rx Patient History Medical History Acute hemorrhoid Bladder stones HX Deep vein thrombosis 1991 Fusion of spine LUMBAR ([facility]) GERD (gastroesophageal reflux disease) [place] filter in place 1991 [place] History of DVT (deep vein thrombosis) History of gastrostomy tube placement Hyperlipidemia Indwelling urinary catheter present Insomnia Nephrolithiasis Neurogenic bladder 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 Paroxysmal atrial fibrillation Spinal cord injury JUNE 1992 Surgical History History of cystoscopy History of surgery "RT/LEFT HAMSTRING AND HIP RELEASES" History of tooth extraction History of tracheostomy Family History Father CHF (congestive heart failure) Mother Diabetes Brother Hypertension Dyslipidemia Diabetes Sister Psychiatric disorder Social History Smoking Status: Current every day smoker Tobacco Type: Cigarettes Age Started Using Tobacco: 15; packs per day: 1; Cigarettes Per Day: 12; Second Hand Exposure: No; Do You Dip or Chew Tobacco: No; Hx Alcohol Use: Yes Alcohol type: beer Alcohol Intake Frequency: 2-4 x/Month Hx Substance Use: Yes Prescribed Medications: Marijuana Last Used Substance Other:: 2019 Preferred Language: German Communication Ability: Effective Hearing Ability: Normal Urban Forester Required: No Beliefs That Will Affect Care: None marital status: Single Current Living Situation: Other Current Living Situation Comment: Lives with Fiimani current occupational status: disabled Feels Safe at Home: Yes Childhood Exposure to Second-Hand Smoke: Yes Diet: regular caffeine: Yes Dental Care, Regularly: No Physical Activity Frequency: Does not Exercise Physical Activity Frequency Comment: physically disabled Seatbelt Use: always Sunscreen Use: Yes Assistive Devices: Scooter/Electric Scooter Review of Systems Constitutional: no fever and no chills Ear, Nose, Mouth, Throat: no hearing loss Respiratory: no cough and no dyspnea Cardiovascular: no chest pain Gastrointestinal: no abdominal pain, no nausea and no vomiting Genitourinary: + as per Subjective / HPI Musculoskeletal: + back pain (Left flank) Integumentary: no rash Neurologic: Patient has chronic lower extremity paraplegia Physical Exam Constitutional: no acute distress Eyes: no conjunctival abnormality ENMT: Ears: no hearing impairment and no external ear abnormality Mouth: no oropharynx abnormality Neck: trachea midline Respiratory: normal respiratory effort; no respiratory distress and no labored breathing Cardiovascular: Rate/Rhythm: regular rate and regular rhythm Gastrointestinal (Abdomen): Abdomen is soft and nonrigid. The patient did have some discomfort with palpation greatest in the suprapubic region Musculoskeletal: Lower extremity atrophy noted due to chronic paraplegia Skin: no rashes Neurologic: Lower extremity paraplegia noted. Patient was able to move his upper extremities without difficulty Psychiatric: A+Ox3, euthymic affect Genitourinary: Minor left CVA tenderness with percussion. Patient had a Mcclure catheter in place that was draining clear urine Results & Data Vital Signs (Past 12 Hours) Vital Signs Temp Pulse Pulse Resp BP Pulse Ox O2 Del Method 04/07/23 15:19 62 04/07/23 14:51 36.6 C 51 L 18 116/66 95 Room Air 04/07/23 13:14 90/52 L 04/07/23 11:09 36.8 C 66 18 89/56 L 94 Room Air 04/07/23 10:00 Room Air PG Care Time/CCT Total # of Minutes Spent Total Time Spent with Patient: Total time spent is greater than 50% in coordination of care (as documented) at patient's floor/unit and/or counseling patient: Coding Level of Care Code 86868 IN/OBS CONSULT LVL 5,80M Diagnoses Bladder stones N21.0
[2023-04-07] MEDS: ZOLPIDEM TARTRATE 5 MG TAB PO PRN (22:13)
--- NOTE | 2023-04-07 22:34 | Hospitalist Progress Note ---
Date of Service April 07, 2023 Assessment & Plan (1) Catheter-associated urinary tract infection: Plan: Urine culture with Alcaligenes faecais - resistant to Levaquin that he was discharged on Continue Zosyn IV will consult urology: concern that bladder stone may be contributing to his infection. (2) Bladder stones: Plan: Follow up with urology once infection adequately treated (3) Paroxysmal atrial fibrillation: Plan: Anticoagulation with Eliquis Monitor on telemetry (4) Paraplegic spinal paralysis: (5) Chronic indwelling Mcclure catheter: Plan VTE Prophylaxis - Eliquis Diet - regular Disposition - admit to med/tele Admission and Anticipated Discharge Date Admission Date: April 06, 2023 Subjective Patient reports no new symptom Review of Systems Review of Systems: All systems reviewed & are unremarkable except as noted in HPI & below Physical Exam Constitutional: well developed; + not well nourished and no acute distress Respiratory: normal respiratory effort, lungs clear to auscultation Cardiovascular: Rate/Rhythm: regular rate and regular rhythm Heart Sounds: no murmur Extremities: + pedal edema (1+ b/l equal pitting edema) Gastrointestinal (Abdomen): Inspection/Auscultation: abdomen normal to inspection; abdomen not distended Percussion/Palpation: + abdomen tender (increased muscle spasticity with palpation of lower abdomen) and abdomen soft; no guarding and abdomen not rigid Neurologic: awake; + does not move all extremities (no movement of b/l LE and reduced RUE) and not confused Psychiatric: A+Ox3, euthymic affect Genitourinary: no CVA tenderness Results & Data Results & Data Vital Signs (Past 12 Hours) Vital Signs Temp Pulse Pulse Resp BP Pulse Ox O2 Del Method 04/07/23 15:19 62 04/07/23 14:51 36.6 C 51 L 18 116/66 95 Room Air 04/07/23 13:14 90/52 L 04/07/23 11:09 36.8 C 66 18 89/56 L 94 Room Air PG Care Time/CCT Total # of Minutes Spent Total Time Spent with Patient: Total time spent is greater than 50% in coordination of care (as documented) at patient's floor/unit and/or counseling patient: Coding Level of Care Code 61203 SUB INP/OBS CARE 2/35MIN Diagnoses Catheter-associated urinary tract infection T83.511A; N39.0 Bladder stones N21.0 Paroxysmal atrial fibrillation I48.0 Paraplegic spinal paralysis G82.20 Chronic indwelling Mcclure catheter Z97.8
[2023-04-07 23:01] LABS: Hematocrit (blood only) 36.6 % (42.0-52.0); Hemoglobin 12.7 g/dl (14.0-18.0); Mean Corpuscular Hemoglobin 33.3 pg (25.0-34.0); Mean Corpuscular Hgb Conc 34.7 g/dL (32.0-36.0); Mean Corpuscular Volume 96.1 fL (80.0-100.0); Mean Platelet Volume 10.5 fL (9.4-12.4); Platelet Count 229 K/uL (130-400); RDW Coefficient of Variation 14.5 % (11.5-14.5); RDW Standard Deviation 50.1 fL (36.4-46.3); Red Blood Count 3.81 M/uL (4.70-6.10); White Blood Count 8.26 K/ul (4.8-10.8)
[2023-04-07 23:18] LABS: BUN Creatinine Ratio 8.3 (10-20); Calcium 8.8 mg/dl (8.6-10.3); Creatinine Clr Calc Pharmacy 82.7 ml/min; Est GFR (African American) 99.2 ml/min; Est GFR (Non-African American) 85.6 ml/min; Potassium 4.1 mmol/L (3.5-5.1)
[2023-04-07] MEDS ORDERED: MoRPHine SULFATE 4 MG/ML 1 ML CARP\\VIAL IV STA (23:50)
[2023-04-08] MEDS: APIXABAN 5 MG TABLET PO SCH ×2 (08:36→19:20)
[2023-04-08] MEDS: MAGNESIUM OXIDE 400 MG TAB PO SCH (08:36)
[2023-04-08] MEDS: CHOLECALCIFEROL 1,000 UNITS 25 MCG TAB PO SCH (08:36)
[2023-04-08] MEDS: PANTOprazole 40 MG TAB PO SCH ×2 (08:36→19:19)
[2023-04-08] MEDS: oxyBUTYnin chloride 5 MG TAB PO SCH ×2 (08:36→19:19)
[2023-04-08] MEDS: BACLOFEN 20 MG TAB PO SCH ×2 (08:36→19:18)
[2023-04-08] MEDS: FAMOTIDINE 20 MG TAB PO SCH ×2 (08:36→19:19)
[2023-04-08] MEDS: NYSTATIN POWDER 15GM BTL EXT SCH ×2 (08:37→19:21)
[2023-04-08] MEDS: LIDOCAINE 5% 1 PATCH TD SCH (08:37)
[2023-04-08] MEDS: PIPERACILLIN/TAZOBACTAM 4.5 GM in DEXTROSE 5% 100 ML IV SCH ×3 (08:43→23:26)
[2023-04-08] MEDS: oxyCODONE HCL IR 5 MG TAB (IMMEDIATE RELEASE) PO PRN ×2 (08:43→19:20)
[2023-04-08] MEDS: POLYETHYLENE (MIRALAX) 17 GM PACK PO SCH ×2 (09:29→19:19)
[2023-04-08] MEDS: DOCUSATE SODIUM/SENNA 50/8.6MG TAB PO SCH (09:29)
--- NOTE | 2023-04-08 09:52 | Urology Progress Note ---
Date of Service April 08, 2023 Assessment & Plan (1) Acute UTI: (2) Bladder stones: Plan: 58 yo M with a hx of neurogenic bladder managed with chronic Mcclure catheter admitted with acute UTIafter failing outpatient treatment. He is afebrile with stable vitals No new labs today at time of visit, labs on 04/07 showed normal creatinine and no leukocytosis Urine culture 04/07 pending - follow culture He is on IV Zosyn per previous urine culture which showed Alcaligenes faecalis No acute intervention today - okay to have diet Can consider treatment of bladder stones while inpatient after optimized with several days of appropriate antibiotics Will tentatively plan for Continue supportive care, antibiotics and medical management per medicine service Can consider increasing Ditropan to TID if having persistent bladder spasms Urology will follow Admission and Anticipated Discharge Date Admission Date: April 06, 2023 Subjective Patient seen and examined at bedside this morning. He is awake and resting in bed. Mcclure patent and draining clear yellow urine. He reports intermittent bladder discomfort and spasms. He is on Ditropan twice daily. No nausea or vomiting. No fever or chills. Review of Systems Constitutional: as per Subjective / HPI Gastrointestinal: as per Subjective / HPI Genitourinary: + as per Subjective / HPI Physical Exam Constitutional: no acute distress Neck: normal visual inspection Respiratory: no respiratory distress and no labored breathing Musculoskeletal: Head/Neck/Chest: normocephalic Neurologic: awake Paralysis of the lower extremities secondary to his paraplegia Psychiatric: A+Ox3, euthymic affect Genitourinary: Mcclure catheter intact, draining clear yellow urine Results & Data Vital Signs (Past 12 Hours) Vital Signs Temp Pulse Pulse Resp BP Pulse Ox O2 Del Method 04/08/23 07:09 36.5 C 65 18 118/81 95 Room Air 04/07/23 23:00 78 04/07/23 23:00 Room Air 04/07/23 23:00 36.9 C 90 18 154/91 H 95 Room Air PG Care Time/CCT Total # of Minutes Spent Total Time Spent with Patient: Total time spent is greater than 50% in coordination of care (as documented) at patient's floor/unit and/or counseling patient: Coding Level of Care Code 33795 SUB INP/OBS CARE /25MIN Diagnoses Acute UTI N39.0 Bladder stones N21.0
[2023-04-08] MEDS ORDERED: ONDANSETRON INJ 2 MG/ML 2 ML VIAL IV ONE (15:39)
[2023-04-08] MEDS: SIMVASTATIN 20 MG TAB PO SCH (19:20)
[2023-04-08] MEDS ORDERED: SOD PHOSPHATE/SOD BIPHOSPHATE ENEMA 132 ML BTL PR ONE (20:00)
--- NOTE | 2023-04-08 22:23 | Hospitalist Progress Note ---
Date of Service April 08, 2023 Assessment & Plan (1) Catheter-associated urinary tract infection: Plan: Urine culture with Alcaligenes faecais - resistant to Levaquin that he was discharged on Continue Zosyn IV will consult urology: concern that bladder stone may be contributing to his infection. Plan for removal on . awaiting cultures. (2) Bladder stones: Plan: Follow up with urology once infection adequately treated (3) Paroxysmal atrial fibrillation: Plan: Anticoagulation with Eliquis Monitor on telemetry (4) Paraplegic spinal paralysis: (5) Chronic indwelling Mcclure catheter: Plan VTE Prophylaxis - Eliquis Diet - regular Disposition - admit to med/tele Admission and Anticipated Discharge Date Admission Date: April 06, 2023 Subjective Patient reports no new symptoms. Review of Systems Review of Systems: All systems reviewed & are unremarkable except as noted in HPI & below Physical Exam Constitutional: well developed; + not well nourished and no acute distress Respiratory: normal respiratory effort, lungs clear to auscultation Cardiovascular: Rate/Rhythm: regular rate and regular rhythm Heart Sounds: no murmur Extremities: + pedal edema (1+ b/l equal pitting edema) Gastrointestinal (Abdomen): Inspection/Auscultation: abdomen normal to inspection; abdomen not distended Percussion/Palpation: + abdomen tender (increased muscle spasticity with palpation of lower abdomen) and abdomen soft; no guarding and abdomen not rigid Neurologic: awake; + does not move all extremities (no movement of b/l LE and reduced RUE) and not confused Psychiatric: A+Ox3, euthymic affect Genitourinary: no CVA tenderness Results & Data Results & Data Vital Signs (Past 12 Hours) Vital Signs Temp Pulse Pulse Resp BP BP Pulse Ox 04/08/23 19:53 36.5 C 65 16 95/69 L 92 04/08/23 15:02 54 L 04/08/23 14:56 36.5 C 62 20 103/65 94 04/08/23 11:31 36.4 C L 64 18 125/82 94 04/08/23 10:59 63 O2 Del Method 04/08/23 19:53 Room Air 04/08/23 15:02 04/08/23 14:56 Room Air 04/08/23 11:31 Room Air 04/08/23 10:59 PG Care Time/CCT Total # of Minutes Spent Total Time Spent with Patient: Total time spent is greater than 50% in coordination of care (as documented) at patient's floor/unit and/or counseling patient: Coding Level of Care Code 34702 SUB INP/OBS CARE 2/35MIN Diagnoses Catheter-associated urinary tract infection T83.511A; N39.0 Bladder stones N21.0 Paroxysmal atrial fibrillation I48.0 Paraplegic spinal paralysis G82.20 Chronic indwelling Mcclure catheter Z97.8
[2023-04-09] MEDS: oxyCODONE HCL IR 5 MG TAB (IMMEDIATE RELEASE) PO PRN (07:40)
[2023-04-09] MEDS: PIPERACILLIN/TAZOBACTAM 4.5 GM in DEXTROSE 5% 100 ML IV SCH (07:40)
[2023-04-09] MEDS: BACLOFEN 20 MG TAB PO SCH ×2 (07:59→21:13)
[2023-04-09] MEDS: DOCUSATE SODIUM/SENNA 50/8.6MG TAB PO SCH (07:59)
[2023-04-09] MEDS: CHOLECALCIFEROL 1,000 UNITS 25 MCG TAB PO SCH (08:00)
[2023-04-09] MEDS: APIXABAN 5 MG TABLET PO SCH ×2 (08:00→21:13)
[2023-04-09] MEDS: MAGNESIUM OXIDE 400 MG TAB PO SCH (08:00)
[2023-04-09] MEDS: oxyBUTYnin chloride 5 MG TAB PO SCH ×2 (08:00→21:11)
[2023-04-09] MEDS: FAMOTIDINE 20 MG TAB PO SCH ×2 (08:00→21:13)
[2023-04-09] MEDS: POLYETHYLENE (MIRALAX) 17 GM PACK PO SCH ×3 (08:00→21:51)
[2023-04-09] MEDS: LIDOCAINE 5% 1 PATCH TD SCH (08:00)
[2023-04-09] MEDS: PANTOprazole 40 MG TAB PO SCH ×2 (08:00→21:09)
[2023-04-09 08:04] LABS: Hematocrit (blood only) 35.7 % (42.0-52.0); Hemoglobin 12.6 g/dl (14.0-18.0); Mean Corpuscular Hemoglobin 33.4 pg (25.0-34.0); Mean Corpuscular Hgb Conc 35.3 g/dL (32.0-36.0); Mean Corpuscular Volume 94.7 fL (80.0-100.0); Mean Platelet Volume 10.6 fL (9.4-12.4); Platelet Count 243 K/uL (130-400); RDW Coefficient of Variation 14.5 % (11.5-14.5); RDW Standard Deviation 49.5 fL (36.4-46.3); Red Blood Count 3.77 M/uL (4.70-6.10); White Blood Count 7.64 K/ul (4.8-10.8)
[2023-04-09 08:36] LABS: BUN Creatinine Ratio 14.1 (10-20); Calcium 8.5 mg/dl (8.6-10.3); Creatinine Clr Calc Pharmacy 122.8 ml/min; Est GFR (African American) 123.3 ml/min; Est GFR (Non-African American) 106.4 ml/min; Potassium 3.9 mmol/L (3.5-5.1)
[2023-04-09] MEDS: NYSTATIN POWDER 15GM BTL EXT SCH ×2 (09:00→21:09)
--- NOTE | 2023-04-09 09:47 | Urology Progress Note ---
Date of Service April 09, 2023 Assessment & Plan (1) Acute UTI: (2) Bladder stones: Plan: 58 yo M with a hx of neurogenic bladder managed with chronic Mcclure catheter admitted with acute UTIafter failing outpatient treatment. He is afebrile with stable vitals Labs today - creatinine 0.64, WBC 7.64, Hgb 12.6 Urine culture 04/07 showed no growth He has been on IV Zosyn since admission per previous urine culture which showed Alcaligenes faecalis - continue Will plan for surgical intervention of bladder stones tomorrow with Dr. Temple presuming he remains stable NPO at [place] for procedure Continue supportive care, antibiotics and medical management per medicine s clara Can consider increasing Ditropan to TID if having persistent bladder spasms Urology will follow Admission and Anticipated Discharge Date Admission Date: April 06, 2023 Subjective Patient seen and examined at bedside this morning. He is awake and resting in bed. Mcclure patent and draining clear yellow urine. He reports intermittent bladder spasms, but improved. He is on Ditropan. No nausea or vomiting. No fever or chills. Review of Systems Constitutional: as per Subjective / HPI Gastrointestinal: as per Subjective / HPI Genitourinary: + as per Subjective / HPI Physical Exam Constitutional: no acute distress Neck: normal visual inspection Respiratory: no respiratory distress and no labored breathing Musculoskeletal: Head/Neck/Chest: normocephalic Neurologic: awake Paralysis of the lower extremities secondary to his paraplegia Psychiatric: A+Ox3, euthymic affect Genitourinary: Mcclure catheter intact, draining clear yellow urine Results & Data Vital Signs (Past 12 Hours) Vital Signs Temp Pulse Pulse Resp BP BP Pulse Ox 04/09/23 09:04 04/09/23 07:49 88 04/09/23 07:15 36.6 C 71 18 118/77 93 04/09/23 05:51 104/69 04/09/23 04:51 36.6 C 69 16 88/49 L 93 04/09/23 00:00 64 04/08/23 23:25 36.6 C 72 16 122/68 95 O2 Del Method 04/09/23 09:04 Room Air 04/09/23 07:49 04/09/23 07:15 Room Air 04/09/23 05:51 04/09/23 04:51 Room Air 04/09/23 00:00 04/08/23 23:25 Room Air PG Care Time/CCT Total # of Minutes Spent Total Time Spent with Patient: Total time spent is greater than 50% in coordination of care (as documented) at patient's floor/unit and/or counseling patient: Coding Level of Care Code 49464 SUB INP/OBS CARE 11/27MIN Diagnoses Acute UTI N39.0 Bladder stones N21.0
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
[2023-04-09] MEDS: CEFEPIME 2,000 MG in SYRINGE 0 ML IV SCH ×2 (16:00→23:55)
[2023-04-09] MEDS: SIMVASTATIN 20 MG TAB PO SCH (21:09)
[2023-04-09] MEDS: ZOLPIDEM TARTRATE 5 MG TAB PO PRN (21:09)
--- NOTE | 2023-04-09 22:43 | Hospitalist Progress Note ---
Date of Service April 09, 2023 Assessment & Plan (1) Catheter-associated urinary tract infection: Plan: Urine culture with Alcaligenes faecais - resistant to Levaquin that he was discharged on Continue Zosyn IV will consult urology: concern that bladder stone may be contributing to his infection. Plan for stone removal on . apppreciate input from BYRON. Willl need IV antibiotics for 1 [address] removal[address] Can place U/S guided line depending on which antibiotic. (2) Bladder stones: Plan: Follow up with urology once infection adequately treated (3) Paroxysmal atrial fibrillation: Plan: Anticoagulation with Eliquis Monitor on telemetry (4) Paraplegic spinal paralysis: (5) Chronic indwelling Mcclure catheter: Plan VTE Prophylaxis - Eliquis Diet - regular Disposition - admit to med/tele Admission and Anticipated Discharge Date Admission Date: April 06, 2023 Subjective Patient reports no new symptoms. Review of Systems Review of Systems: All systems reviewed & are unremarkable except as noted in HPI & below Physical Exam 2 Constitutional: well developed; + not well nourished and no acute distress Respiratory: normal respiratory effort, lungs clear to auscultation Cardiovascular: Rate/Rhythm: regular rate and regular rhythm Heart Sounds: no murmur Extremities: + pedal edema (1+ b/l equal pitting edema) Gastrointestinal (Abdomen): Inspection/Auscultation: abdomen normal to inspection; abdomen not distended Percussion/Palpation: abdomen soft; abdomen nontender, no guarding and abdomen not rigid Neurologic: awake; + does not move all extremities (no movement of b/l LE and reduced RUE) and not confused Psychiatric: A+Ox3, euthymic affect Genitourinary: no CVA tenderness Results & Data Results & Data Vital Signs (Past 12 Hours) Vital Signs Temp Pulse Pulse Resp BP BP Pulse Ox 04/09/23 19:57 36.7 C 73 20 106/66 92 04/09/23 15:40 36.9 C 65 20 98/61 L 93 04/09/23 15:32 66 04/09/23 11:23 36.3 C L 65 20 99/62 L 92 O2 Del Method 04/09/23 19:57 Room Air 04/09/23 15:40 Room Air 04/09/23 15:32 04/09/23 11:23 Room Air PG Care Time/CCT Total # of Minutes Spent Total Time Spent with Patient: Total time spent is greater than 50% in coordination of care (as documented) at patient's floor/unit and/or counseling patient: Coding Level of Care Code 48858 SUB INP/OBS CARE 2/35MIN Diagnoses Catheter-associated urinary tract infection T83.511A; N39.0 Bladder stones N21.0 Paroxysmal atrial fibrillation I48.0 Paraplegic spinal paralysis G82.20 Chronic indwelling Mcclure catheter Z97.8
[2023-04-10] MEDS: oxyCODONE HCL IR 5 MG TAB (IMMEDIATE RELEASE) PO PRN (00:19)
[2023-04-10] MEDS: CEFEPIME 2,000 MG in SYRINGE 0 ML IV SCH ×3 (07:25→23:00)
[2023-04-10] MEDS: POLYETHYLENE (MIRALAX) 17 GM PACK PO SCH ×2 (07:31→20:13)
[2023-04-10] MEDS: LIDOCAINE 5% 1 PATCH TD SCH (07:34)
[2023-04-10] MEDS: oxyBUTYnin chloride 5 MG TAB PO SCH ×2 (07:34→20:14)
[2023-04-10] MEDS: APIXABAN 5 MG TABLET PO SCH (07:35)
[2023-04-10] MEDS: MAGNESIUM OXIDE 400 MG TAB PO SCH (07:35)
[2023-04-10] MEDS: CHOLECALCIFEROL 1,000 UNITS 25 MCG TAB PO SCH (07:35)
[2023-04-10] MEDS: BACLOFEN 20 MG TAB PO SCH ×2 (07:35→20:14)
[2023-04-10] MEDS: FAMOTIDINE 20 MG TAB PO SCH ×2 (07:35→20:14)
[2023-04-10] MEDS: NYSTATIN POWDER 15GM BTL EXT SCH ×2 (07:35→20:14)
[2023-04-10] MEDS: DOCUSATE SODIUM/SENNA 50/8.6MG TAB PO SCH (07:35)
[2023-04-10] MEDS: PANTOprazole 40 MG TAB PO SCH ×2 (07:35→20:13)
--- NOTE | 2023-04-10 07:42 | Urology Progress Note ---
Date of Service April 10, 2023 Assessment & Plan (1) Acute UTI: (2) Bladder stones: Plan: 58 yo M with a hx of neurogenic bladder managed with chronic Mcclure catheter admitted with acute UTIafter failing outpatient treatment. He is afebrile with stable vitals. No new labs at time of visit this am. Creatinine was normal and no leukocytosis on 04/09. Urine culture 04/07 showed no growth. He has been on IV Zosyn since admission per previous urine culture which showed Alcaligenes faecalis - continue. Proceed with cystolitholapaxy today with Dr. Temple as previously discussed. Risks and benefits of procedure were reviewed with patient as per consent. He is agreeable to proceed, consent signed and all questions answered. Will cover with scheduled IV Zosyn. Continue supportive care, antibiotics and medical management per medicine service. Urology will follow. Attending note: Independently assessed, examined, and interviewed. Patient has large amount of bladder stones within the bladder. Has been dealing with increasing issues related to infection as well as worsening spasms and discomfort. Patient is a longtime paraplegic. Has considerable issues with bladder infections in the past. Has chronic catheterization. Has been on appropriate antibiotics. Patient is on Eliquis. Plan is to continue to hold the medication after the procedure until it is confirmed the patient is not having any issues with bleeding. We will plan to move forward with stone treatment. Risks and benefits discussed at length for procedure. These include bleeding, infection, injury to surrounding tissues or organs, and risks associated with a nesthesia. Patient states understanding and agrees to proceed. Will sign consent and proceed. Plan for cystoscopy and bladder stone treatment Admission and Anticipated Discharge Date Admission Date: April 06, 2023 Subjective Patient seen and examined at bedside this morning. No acute issues overnight. Mcclure patent and draining clear yellow urine with sediment. No abdominal or bladder pain at present. No nausea or vomiting. No fever or chills. Denies chest pain or shortness of breath. He is n.p.o. Review of Systems Constitutional: as per Subjective / HPI Respiratory: no dyspnea Cardiovascular: no chest pain Gastrointestinal: as per Subjective / HPI Genitourinary: + as per Subjective / HPI Physical Exam Constitutional: no acute distress Respiratory: no respiratory distress and no labored breathing Cardiovascular: Rate/Rhythm: regular rate Gastrointestinal (Abdomen): Inspection/Auscultation: abdomen normal to inspection; abdomen not distended Musculoskeletal: Head/Neck/Chest: normocephalic Neurologic: awake Paralysis of the lower extremities secondary to his paraplegia Psychiatric: A+Ox3, euthymic affect Genitourinary: Mcclure draining clear yellow urine with sediment Results & Data Vital Signs (Past 12 Hours) Vital Signs Temp Pulse Pulse Resp BP Pulse Ox O2 Del Method 04/10/23 07:15 68 04/10/23 04:00 36.8 C 66 20 95/60 L 93 Room Air 04/09/23 23:55 36.9 C 68 20 117/72 93 Room Air 04/09/23 22:00 65 04/09/23 19:57 36.7 C 73 20 106/66 92 Room Air PG Care Time/CCT Total # of Minutes Spent Total Time Spent with Patient: Total time spent is greater than 50% in coordination of care (as documented) at patient's floor/unit and/or counseling patient: Coding Level of Care Code 31980 SUB INP/OBS CARE 11/27MIN Diagnoses Acute UTI N39.0 Bladder stones N21.0
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
--- NOTE | 2023-04-10 08:45 | Hospitalist Progress Note ---
Date of Service April 10, 2023 Assessment & Plan (1) Catheter-associated urinary tract infection: Plan: Urine culture with Alcaligenes faecalis - resistant to Levaquin that he was discharged on Continue Zosyn IV will consult urology:04/10 Cystolithopaxy Will need IV antibiotics for 1 week post removal. (2) Paroxysmal atrial fibrillation: Plan: Anticoagulation with Eliquis (3) Paraplegic spinal paralysis: (4) Chronic indwelling Mcclure catheter: Plan VTE Prophylaxis - Eliquis Diet - regular Disposition - admit to med/tele Admission and Anticipated Discharge Date Admission Date: April 06, 2023 Subjective Patient seen preoperatively he is in stable condition he has no new complaints or problems once I have established care with urology after this hospitalization Physical Exam Physical Exam: Awake alert and oriented card exam regular lungs are clear abdomen is without tenderness NABS Results & Data Results & Data Vital Signs (Past 12 Hours) Vital Signs Temp Pulse Pulse Resp BP Pulse Ox O2 Del Method 04/10/23 08:20 97.9 F 72 16 126/82 92 Room Air 04/10/23 07:15 68 04/10/23 04:00 98.2 F 66 20 95/60 L 93 Room Air 04/09/23 23:55 98.4 F 68 20 117/72 93 Room Air 04/09/23 22:00 65 PG Care Time/CCT Total # of Minutes Spent Total Time Spent with Patient: Total time spent is greater than 50% in coordination of care (as documented) at patient's floor/unit and/or counseling patient: Coding Level of Care Code 11917 SUB INP/OBS CARE 2/35MIN Diagnoses Catheter-associated urinary tract infection T83.511A; N39.0 Paroxysmal atrial fibrillation I48.0 Paraplegic spinal paralysis G82.20 Chronic indwelling Mcclure catheter Z97.8
[2023-04-10] MEDS ORDERED: ONDANSETRON INJ 2 MG/ML 2 ML VIAL IV PRN (15:22)
[2023-04-10] MEDS ORDERED: fentaNYL citrate PF 100 MCG/2 ML VIAL IV PRN (15:22)
[2023-04-10] MEDS ORDERED: ePHEDrine sulfate 50 MG/ML AMP IV PRN (15:22)
[2023-04-10] MEDS ORDERED: ATROPINE SULFATE 0.1 MG/ML 10ML SYR IV PRN (15:22)
[2023-04-10] MEDS ORDERED: PROPOFOL IV EMULSION 10 MG/ML 20 ML VIAL IV ONE ×2 (15:42→16:14)
[2023-04-10] MEDS ORDERED: LIDOCAINE 2% 2 ML VIAL/AMP(20MG/ML) INFIL ONE (15:42)
[2023-04-10] MEDS ORDERED: MIDAZOLAM HCL 1 MG/ML 2ML VIAL ONE (15:43)
[2023-04-10] MEDS ORDERED: fentaNYL citrate PF 100 MCG/2 ML VIAL ONE (15:43)
[2023-04-10] MEDS ORDERED: GLYCOPYRROLATE 0.2 MG/ML VIAL ONE (16:23)
[2023-04-10] MEDS ORDERED: ESMOLOL HCL INJ 10 MG/ML 10ML VIAL IV ONE (16:34)
--- NOTE | 2023-04-10 16:59 | Operative Report ---
PG Post Operative Report Pre & Post Diagnosis Operation Date: 04/10/23 07:00 Pre-Op Diagnosis: Bladder stones Post-Op Diagnosis: Bladder stones I identified the patient and participated in the time-out.: Yes Procedure Operation Date: 04/10/23 07:00 Actual Procedures Laser Cystolitholapaxy - Oneal Temple DO Surgeon Oneal Temple, II, DO Director Of Group Sales None Estimated Blood Loss 1 Findings Consistent with Post-Op Diagnosis Extremely large stone burden. Approx 20 + stones greater than 1 cm. Numerous smaller stones. Largest stone approx 3.1 cm in size. Specimens Bladder Stones. Drains 20Fr Silicon Catheter Anesthesia Type General Complications none Disposition Disposition: Recovery Room Indications Patient with chronic obstruction due to spinal injury with large bladder stones. Risks and benefits discussed at length. Description of Procedure Patient was consented and brought back to the operating room. Patient was placed under anesthesia in the supine position and moved to the dorsal lithotomy position. Patient was prepped and draped in the regular sterile fashion. A time out was completed. A 30degree Cystoscope was placed into the bladder and the entire bladder was examined. The UO's were identified as well as the bladder neck, trigone, dome, and the other important landmarks. The patient was found to have massive amount of stones within the bladder. Greater than 20 stones were seen within the bladder larger than a centimeter. Numerous smaller stones. Large stone was a pproximately 3.1 cm. The prostatic urethra was assessed and the veru and bladder neck identified and area/size was assessed. Patient had significant inflammation throughout the bladder largely likely from the stone inflammation. Also had considerable thickening of the bladder likely from chronic retention with chronic catheterization. The resection scope was placed and the laser bridge was selected in order to facilitate the 1000 m laser fiber. The stones were then destroyed to small pieces. Extensive stone fragmentation was necessary with the laser in order to allow for a decrease in size to a size capable of being irrigated out. The Specimen was removed and sent for analysis. Numerous rounds of irrigating stone fragments and then continuing to break the stones with the laser were necessary. After a number of rounds of breaking the stones and irrigating out the stone fragments the stone burden was drastically reduced and the majority of the fragments were removed. The entire bladder was then assessed. No major areas of bleeding. Did have considerable thickening of the base of the bladder likely from long-term stone irritation. No major areas of injury or other concerning findings. No tumors or nodules. The remainder of the stone fragments were able to be irrigated to clear and the bladder was found to be clear of all stone pieces. The bladder was inspected a final time. The bladder was emptied and irrigated. All specimen and debris was removed. The scope was removed with the bladder partially full. A catheter was placed and balloon elevated. This was easily irrigated. The patient was cleaned, aroused from anesthesia, and transferred to the pacu in stable condition having tolerated the procedure well with no complications. I was present and participated in all aspects of the procedure. The patient will be monitored in the PACU until transferred. Patient will be transferred back to the floor and monitored. Will likely need an additional period of time on IV antibiotics and can be discharged home with catheter in place. Will likely need follow-up to have catheter changes every month with nursing. Can follow-up in the next 3 to 4 months for reevaluation with our doctors assuming he continues to improve. I attest to the content of the Intraoperative Record and any orders documented therein. Any exceptions are noted below.
--- NOTE | 2023-04-10 17:48 | Anesthesiology Progress Note ---
Date of Service April 10, 2023 Anesthesia Post Procedure Vital Signs Vital Signs: Temp Pulse Pulse Pulse Resp BP BP 04/10/23 17:30 67 14 119/74 04/10/23 17:20 97.5 F L 74 16 107/74 04/10/23 17:10 78 14 112/79 04/10/23 17:01 96.8 F L 84 16 118/73 04/10/23 15:30 58 L 04/10/23 14:40 98.2 F 64 18 139/96 04/10/23 11:59 98.1 F 64 16 132/84 04/10/23 08:20 97.9 F 72 16 126/82 04/10/23 07:15 68 04/10/23 04:00 98.2 F 66 20 95/60 L 04/09/23 23:55 98.4 F 68 20 117/72 04/09/23 22:00 65 04/09/23 19:57 98.1 F 73 20 106/66 Pulse Ox O2 Del Method O2 Flow Rate 04/10/23 17:30 95 Room Air 04/10/23 17:20 96 Room Air 04/10/23 17:10 98 Nasal Cannula 2 04/10/23 17:01 96 Nasal Cannula 2 04/10/23 15:30 04/10/23 14:40 97 Room Air 04/10/23 11:59 96 Room Air 04/10/23 08:20 92 Room Air 04/10/23 07:15 04/10/23 04:00 93 Room Air 04/09/23 23:55 93 Room Air 04/09/23 22:00 04/09/23 19:57 92 Room Air Pain Intensity Left Flank: Pain Intensity: 0 Transfer of Care Handoff Completed per policy Notes Mental Status: alert / awake / arousable and participated in evaluation Patient Amnestic to Procedure: Yes Nausea / Vomiting: adequately controlled Pain: adequately controlled Airway Patency, RR, SpO2: stable & adequate BP & HR: stable & adequate Hydration State: stable & adequate Anesthetic Complications: no major complications apparent and Pt Satisfied with anesthetic care
[2023-04-10] MEDS: SIMVASTATIN 20 MG TAB PO SCH (20:13)
[2023-04-11] MEDS: POLYETHYLENE (MIRALAX) 17 GM PACK PO SCH ×2 (07:32→19:43)
[2023-04-11] MEDS: CEFEPIME 2,000 MG in SYRINGE 0 ML IV SCH ×3 (07:33→23:00)
--- NOTE | 2023-04-11 08:04 | Urology Progress Note ---
Date of Service April 11, 2023 Assessment & Plan (1) Bladder stones: (2) Acute UTI: (3) Neurogenic bladder: Plan: - POD#1 s/p cystolitholapaxy with Dr. Temple - Pt subjectively doing well - Afebrile with stable vitals, no new labs this AM at time of visit - Recommend continuation of IV antibiotics per previous urine culture 03/31 - Okay to d/c from perspective when medically stable - Recommend discharge with Mcclure catheter in place - Plan for monthly catheter changes with nursing. - Will arrange outpatient urology follow-up for ongoing management. - Expected clinical course reviewed, all questions answered - will sign off, contact our service with any additional questions. Admission and Anticipated Discharge Date Admission Date: April 06, 2023 Subjective Patient seen and examined at bedside this morning. No issues overnight. Reports he is feeling great. Denies abdominal or bladder discomfort. Mcclure patent and draining clear yellow urine. No fever or chills. Review of Systems Constitutional: as per Subjective / HPI Gastrointestinal: as per Subjective / HPI Genitourinary: + as per Subjective / HPI Physical Exam Constitutional: no acute distress Respiratory: no respiratory distress and no labored breathing Gastrointestinal (Abdomen): Inspection/Auscultation: abdomen normal to inspection; abdomen not distended Musculoskeletal: Head/Neck/Chest: normocephalic Neurologic: awake Paralysis of the lower extremities secondary to his paraplegia Psychiatric: A+Ox3, euthymic affect Genitourinary: Mcclure draining clear yellow urine Results & Data Vital Signs (Past 12 Hours) Vital Signs Temp Pulse Pulse Resp BP BP Pulse Ox 04/11/23 07:48 36.8 C 59 L 16 109/76 93 04/11/23 03:02 36.9 C 66 18 106/68 95 04/11/23 00:42 107/74 04/10/23 23:22 36.7 C 63 16 92/55 L 94 04/10/23 23:49 63 O2 Del Method 04/11/23 07:48 Room Air 04/11/23 03:02 Room Air 04/11/23 00:42 04/10/23 23:22 Room Air 04/10/23 23:49 PG Care Time/CCT Total # of Minutes Spent Total Time Spent with Patient: Total time spent is greater than 50% in coordination of care (as documented) at patient's floor/unit and/or counseling patient: Coding Level of Care Code 55183 SUB INP/OBS CARE 11/27MIN Diagnoses Bladder stones N21.0 Acute UTI N39.0 Neurogenic bladder N31.9
[2023-04-11] MEDS: BACLOFEN 20 MG TAB PO SCH ×2 (08:38→19:48)
[2023-04-11] MEDS: LIDOCAINE 5% 1 PATCH TD SCH (08:38)
[2023-04-11] MEDS: MAGNESIUM OXIDE 400 MG TAB PO SCH (08:40)
[2023-04-11] MEDS: oxyBUTYnin chloride 5 MG TAB PO SCH ×2 (08:40→19:45)
[2023-04-11] MEDS: PANTOprazole 40 MG TAB PO SCH ×2 (08:40→19:44)
[2023-04-11] MEDS: DOCUSATE SODIUM/SENNA 50/8.6MG TAB PO SCH (08:40)
[2023-04-11] MEDS: FAMOTIDINE 20 MG TAB PO SCH ×2 (08:40→19:44)
[2023-04-11] MEDS: CHOLECALCIFEROL 1,000 UNITS 25 MCG TAB PO SCH (08:40)
[2023-04-11] MEDS: NYSTATIN POWDER 15GM BTL EXT SCH ×2 (08:41→19:43)
--- NOTE | 2023-04-11 17:26 | Hospitalist Progress Note ---
Date of Service April 11, 2023 Assessment & Plan (1) Catheter-associated urinary tract infection: Plan: Urine culture with Alcaligenes faecalis - resistant to Levaquin that he was discharged on Continue cefepime IV, patient will require continued treatment for 1 week from procedure which will be April 17 will consult urology:04/10 Cystolithopaxy Will need IV antibiotics for 1 week post removal. (2) Paroxysmal atrial fibrillation: Plan: Anticoagulation with Eliquis continues to be rate controlled without medications (3) Paraplegic spinal paralysis: Plan: Patient is supportive care at home we will continue to have this coordinated (4) Chronic indwelling Mcclure catheter: Plan: Patient will have catheter exchanges and stent exchanges through urology office Plan VTE Prophylaxis - Eliquis Diet - regular Disposition - admit to med/tele Admission and Anticipated Discharge Date Admission Date: April 06, 2023 Subjective Patient desperately wants to go home however having difficulties coordinating home health for IV antibiotics. Unfortunately his culture results dictate the need for such Patient otherwise is recovering well post procedure has no new complaints or issues Physical Exam Physical Exam: Exam is regular lungs are clear Results & Data Results & Data Vital Signs (Past 12 Hours) Vital Signs Temp Pulse Pulse Resp BP Pulse Ox O2 Del Method 04/11/23 15:21 97.9 F 71 18 102/66 94 Room Air 04/11/23 12:00 98.2 F 59 L 16 102/68 95 Room Air 04/11/23 06:00 66 04/11/23 07:48 98.2 F 59 L 16 109/76 93 Room Air PG Care Time/CCT Total # of Minutes Spent Total Time Spent with Patient: Total time spent is greater than 50% in coordination of care (as documented) at patient's floor/unit and/or counseling patient: Coding Level of Care Code 84029 SUB INP/OBS CARE 2/35MIN Diagnoses Catheter-associated urinary tract infection T83.511A; N39.0 Paroxysmal atrial fibrillation I48.0 Paraplegic spinal paralysis G82.20 Chronic indwelling Mcclure catheter Z97.8
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
[2023-04-11] MEDS: SIMVASTATIN 20 MG TAB PO SCH (19:45)
[2023-04-11] MEDS: APIXABAN 5 MG TABLET PO SCH (20:08)
[2023-04-12] MEDS: CHOLECALCIFEROL 1,000 UNITS 25 MCG TAB PO SCH (08:56)
[2023-04-12] MEDS: MAGNESIUM OXIDE 400 MG TAB PO SCH (08:56)
[2023-04-12] MEDS: PANTOprazole 40 MG TAB PO SCH ×2 (08:56→19:59)
[2023-04-12] MEDS: BACLOFEN 20 MG TAB PO SCH ×2 (08:56→19:59)
[2023-04-12] MEDS: oxyBUTYnin chloride 5 MG TAB PO SCH ×2 (08:56→20:00)
[2023-04-12] MEDS: FAMOTIDINE 20 MG TAB PO SCH ×2 (08:56→20:00)
[2023-04-12] MEDS: DOCUSATE SODIUM/SENNA 50/8.6MG TAB PO SCH (08:56)
[2023-04-12] MEDS: APIXABAN 5 MG TABLET PO SCH ×2 (08:56→20:00)
[2023-04-12] MEDS: NYSTATIN POWDER 15GM BTL EXT SCH ×2 (08:58→20:00)
[2023-04-12] MEDS: LIDOCAINE 5% 1 PATCH TD SCH (08:59)
[2023-04-12] MEDS: POLYETHYLENE (MIRALAX) 17 GM PACK PO SCH ×2 (08:59→19:59)
[2023-04-12] MEDS: ERTAPENEM SODIUM 1,000 MG in SYRINGE 0 ML IV SCH (09:31)
--- NOTE | 2023-04-12 14:35 | Hospitalist Progress Note ---
Date of Service April 12, 2023 Assessment & Plan (1) Catheter-associated urinary tract infection: Plan: Urine culture with Alcaligenes faecalis - resistant to Levaquin that he was discharged on Factious diseases recommended ertapenem we changed to that subsequently can coordinate home care with his last dose in the hospital being on 611 and last dose as an outpatient 616. Urology will require follow-up the patient had cystolitholopaxy with significant reduction in stone burden but no immediate future procedures will have outpatient follow-up required Will need IV antibiotics for 1 week post removal. (2) Paroxysmal atrial fibrillation: Plan: Anticoagulation with Eliquis continues to be rate controlled without medications (3) Paraplegic spinal paralysis: Plan: Patient is supportive care at home we will continue to have this coordinated (4) Chronic indwelling Mcclure catheter: Plan: Patient will have catheter exchanges and stent exchanges through urology office Plan VTE Prophylaxis - Eliquis Diet - regular Disposition - admit to med/tele Admission and Anticipated Discharge Date Admission Date: April 06, 2023 Subjective Patient desperately wants to go home however having difficulties coordinating home health for IV antibiotics. Unfortunately his culture results dictate the need for such Patient otherwise is recovering well post procedure has no new complaints or issues ID had recommended Ertapenem, and now maybe considered to discharge on 04/13 Physical Exam Physical Exam: Patient has baseline neurological deficits but otherwise without distress his card exam is regular lungs are clear urine is draining clear yellow some sediment though Results & Data Results & Data Vital Signs (Past 12 Hours) Vital Signs Temp Pulse Pulse Resp BP Pulse Ox O2 Del Method 04/12/23 06:00 64 04/12/23 11:16 98.4 F 76 18 101/71 93 Room Air 04/12/23 07:28 99.1 F 68 18 116/79 94 Room Air 04/12/23 03:00 98.2 F 74 18 111/73 97 Room Air PG Care Time/CCT Total # of Minutes Spent Total Time Spent with Patient: Total time spent is greater than 50% in coordination of care (as documented) at patient's floor/unit and/or counseling patient: Coding Level of Care Code 07066 SUB INP/OBS CARE 2/35MIN Diagnoses Catheter-associated urinary tract infection T83.511A; N39.0 Paroxysmal atrial fibrillation I48.0 Paraplegic spinal paralysis G82.20 Chronic indwelling Mcclure catheter Z97.8
[2023-04-12] MEDS: SIMVASTATIN 20 MG TAB PO SCH (20:00)
[2023-04-12] MEDS: ZOLPIDEM TARTRATE 5 MG TAB PO PRN (21:27)
[2023-04-13] MEDS: ERTAPENEM SODIUM 1,000 MG in SYRINGE 0 ML IV SCH (07:32)
[2023-04-13] MEDS ORDERED: bisacodyL 10 MG SUPP PR STA (07:53)
[2023-04-13] MEDS: LIDOCAINE 5% 1 PATCH TD SCH (08:26)
[2023-04-13] MEDS: MAGNESIUM OXIDE 400 MG TAB PO SCH (08:31)
[2023-04-13] MEDS: CHOLECALCIFEROL 1,000 UNITS 25 MCG TAB PO SCH (08:31)
[2023-04-13] MEDS: APIXABAN 5 MG TABLET PO SCH ×2 (08:32→21:14)
[2023-04-13] MEDS: NYSTATIN POWDER 15GM BTL EXT SCH ×2 (08:32→21:13)
[2023-04-13] MEDS: FAMOTIDINE 20 MG TAB PO SCH ×2 (08:32→21:14)
[2023-04-13] MEDS: POLYETHYLENE (MIRALAX) 17 GM PACK PO SCH ×2 (08:32→21:14)
[2023-04-13] MEDS: PANTOprazole 40 MG TAB PO SCH ×2 (08:32→21:14)
[2023-04-13] MEDS: oxyBUTYnin chloride 5 MG TAB PO SCH ×2 (08:32→21:14)
[2023-04-13] MEDS: DOCUSATE SODIUM/SENNA 50/8.6MG TAB PO SCH (08:32)
[2023-04-13] MEDS: BACLOFEN 20 MG TAB PO SCH ×2 (08:32→21:14)
--- NOTE | 2023-04-13 14:58 | Hospitalist Progress Note ---
Date of Service April 13, 2023 Assessment & Plan (1) Catheter-associated urinary tract infection: Plan: Urine culture with Alcaligenes faecalis - resistant to Levaquin that he was discharged on Factious diseases recommended ertapenem we changed to that subsequently can coordinate home care with his last dose in the hospital being on 611 and last dose as an outpatient 616. Urology will require follow-up the patient had cystolitholopaxy with significant reduction in stone burden but no immediate future procedures will have outpatient follow-up required Will need IV antibiotics for 1 week post removal. (2) Paroxysmal atrial fibrillation: Plan: Anticoagulation with Eliquis continues to be rate controlled without medications (3) Paraplegic spinal paralysis: Plan: Patient is supportive care at home we will continue to have this coordinated (4) Chronic indwelling Mcclure catheter: Plan: Patient will have catheter exchanges and stent exchanges through urology office Plan VTE Prophylaxis - Eliquis Diet - regular Disposition - admit to med/tele Admission and Anticipated Discharge Date Admission Date: April 06, 2023 Subjective Patient desperately wants to go home however having difficulties coordinating home health for IV antibiotics. Unfortunately his culture results dictate the need for such Patient otherwise is recovering well post procedure has no new complaints or issues ID had recommended Ertapenem, and now maybe considered to discharge on 04/13 pt coiuld not ride home in Wheel Chair van due to prevoius spinal chord issues and weakness will need to stay for transport 04/14/13 Physical Exam Physical Exam: Patient has baseline neurological deficits but otherwise without distress his card exam is regular lungs are clear urine is draining clear yellow some sediment though Results & Data Results & Data Vital Signs (Past 12 Hours) Vital Signs Temp Pulse Pulse Pulse Resp BP BP 04/13/23 14:53 98.6 F 88 18 154/96 H 04/13/23 12:24 97.7 F 62 93 H 18 116/80 92/55 L 04/13/23 10:59 97.7 F 93 H 18 116/80 04/13/23 07:34 98.8 F 73 18 118/79 04/13/23 06:00 69 04/13/23 03:46 67 122/76 04/13/23 03:00 97.9 F 70 18 95/60 L Pulse Ox O2 Del Method 04/13/23 14:53 90 Room Air 04/13/23 12:24 96 04/13/23 10:59 96 Room Air 04/13/23 07:34 98 Room Air 04/13/23 06:00 04/13/23 03:46 04/13/23 03:00 93 Room Air PG Care Time/CCT Total # of Minutes Spent Total Time Spent with Patient: Total time spent is greater than 50% in coordination of care (as documented) at patient's floor/unit and/or counseling patient: Coding Level of Care Code 37407 SUB INP/OBS CARE Diagnoses Catheter-associated urinary tract infection T83.511A; N39.0 Paroxysmal atrial fibrillation I48.0 Paraplegic spinal paralysis G82.20 Chronic indwelling Mcclure catheter Z97.8
[2023-04-13] MEDS ORDERED: SOD PHOSPHATE/SOD BIPHOSPHATE ENEMA 132 ML BTL PR STA (16:37)
[2023-04-13] MEDS: oxyCODONE HCL IR 5 MG TAB (IMMEDIATE RELEASE) PO PRN (17:58)
[2023-04-13] MEDS ORDERED: MoRPHine SULFATE 2 MG/ML CARP IV PRN (18:11)
[2023-04-13] MEDS: LORazepam 2 MG/1 ML VIAL IV PRN (18:23)
[2023-04-13] MEDS: SIMVASTATIN 20 MG TAB PO SCH (21:14)
[2023-04-13] MEDS: ZOLPIDEM TARTRATE 5 MG TAB PO PRN (21:15)
[2023-04-14] MEDS ORDERED: amLODIPine BESYLATE 5 MG TAB PO ONE (08:36)
[2023-04-14] MEDS: POLYETHYLENE (MIRALAX) 17 GM PACK PO SCH ×2 (08:42→20:59)
[2023-04-14] MEDS: DOCUSATE SODIUM/SENNA 50/8.6MG TAB PO SCH (08:43)
[2023-04-14 08:44] LABS: Hematocrit (blood only) 41.6 % (42.0-52.0); Hemoglobin 14.3 g/dl (14.0-18.0); Mean Corpuscular Hemoglobin 32.8 pg (25.0-34.0); Mean Corpuscular Hgb Conc 34.4 g/dL (32.0-36.0); Mean Corpuscular Volume 95.4 fL (80.0-100.0); Mean Platelet Volume 10.3 fL (9.4-12.4); Platelet Count 310 K/uL (130-400); RDW Coefficient of Variation 14.1 % (11.5-14.5); RDW Standard Deviation 49.1 fL (36.4-46.3); Red Blood Count 4.36 M/uL (4.70-6.10); White Blood Count 9.69 K/ul (4.8-10.8)
[2023-04-14] MEDS: oxyCODONE HCL IR 5 MG TAB (IMMEDIATE RELEASE) PO PRN (08:45)
[2023-04-14] MEDS: MAGNESIUM OXIDE 400 MG TAB PO SCH (08:46)
[2023-04-14] MEDS: ERTAPENEM SODIUM 1,000 MG in SYRINGE 0 ML IV SCH (08:46)
[2023-04-14] MEDS: PANTOprazole 40 MG TAB PO SCH ×2 (08:47→20:23)
[2023-04-14] MEDS: oxyBUTYnin chloride 5 MG TAB PO SCH ×2 (08:47→20:23)
[2023-04-14] MEDS: CHOLECALCIFEROL 1,000 UNITS 25 MCG TAB PO SCH ×2 (08:47→20:20)
[2023-04-14] MEDS: FAMOTIDINE 20 MG TAB PO SCH ×2 (08:47→20:30)
[2023-04-14] MEDS: BACLOFEN 20 MG TAB PO SCH ×2 (08:48→20:21)
[2023-04-14] MEDS: APIXABAN 5 MG TABLET PO SCH ×2 (08:48→20:21)
[2023-04-14] MEDS: LIDOCAINE 5% 1 PATCH TD SCH (08:49)
[2023-04-14] MEDS: NYSTATIN POWDER 15GM BTL EXT SCH ×2 (08:49→20:34)
[2023-04-14 08:59] LABS: BUN Creatinine Ratio 14.9 (10-20); Calcium 9.1 mg/dl (8.6-10.3); Creatinine Clr Calc Pharmacy 106.1 ml/min; Est GFR (African American) 116.2 ml/min; Est GFR (Non-African American) 100.3 ml/min; Potassium 4.3 mmol/L (3.5-5.1)
[2023-04-14] MEDS ORDERED: MoRPHine SULFATE 2 MG/ML CARP IV STA (11:15)
--- NOTE | 2023-04-14 18:16 | Hospitalist Progress Note ---
Date of Service April 14, 2023 Assessment & Plan (1) Catheter-associated urinary tract infection: Plan: Urine culture with Alcaligenes faecalis - resistant to Levaquin Infectious diseases recommended ertapenem we changed to that subsequently can coordinate home care, last dose as an outpatient 04/18. Increased spasticity and abdominal discomfort has prompted additional abdomen pelvis CT scan on 04/14/2023 these results are pending at the time of this note Urology will require follow-up the patient had cystolitholopaxy with significant reduction in stone burden but no immediate future procedures will have outpatient follow-up required Will need IV antibiotics for 1 week post removal. (2) Paroxysmal atrial fibrillation: Plan: Anticoagulation with Eliquis continues to be rate controlled without medications (3) Paraplegic spinal paralysis: Plan: Patient is supportive care at home we will continue to have this coordinated (4) Chronic indwelling Mcclure catheter: Plan: Patient will have catheter exchanges and stent exchanges through urology office Plan VTE Prophylaxis - Eliquis Diet - regular Patient remains hospitalized due to escalation of abdominal spasticity and discomfort on 04/14/2023 Admission and Anticipated Discharge Date Admission Date: April 06, 2023 Subjective Patient desperately wants to go home however having difficulties with spasticity is limiting his ability to sit in a wheelchair. Patient was having increasing spasticity since we attempted to help with his obstipation with enemas to encourage bowel movements. Patient also has known retention of some kidney stones therefore we will proceed with additional imaging of the abdomen pelvis to determine if there is any additional attention needed prior to him going home. He is very uncomfortable ID had recommended Ertapenem, Physical Exam Physical Exam: Patient has baseline neurological deficits his abdomen is distended and soft there is no reproducible spasticity on my examination there is no firmness or rebound exacerbating symptoms Results & Data Results & Data Vital Signs (Past 12 Hours) Vital Signs Temp Pulse Pulse Resp BP BP Pulse Ox 04/14/23 15:11 97.9 F 75 18 127/83 96 04/14/23 09:59 98.4 F 86 67 16 160/100 H 92/55 L 92 04/14/23 08:00 04/14/23 07:48 98.4 F 86 16 160/100 H 92 O2 Del Method 04/14/23 15:11 Room Air 04/14/23 09:59 04/14/23 08:00 Room Air 04/14/23 07:48 Room Air PG Care Time/CCT Total # of Minutes Spent Total Time Spent with Patient: Total time spent is greater than 50% in coordination of care (as documented) at patient's floor/unit and/or counseling patient: Coding Level of Care Code 53474 SUB INP/OBS CARE 2/35MIN Diagnoses Catheter-associated urinary tract infection T83.511A; N39.0 Paroxysmal atrial fibrillation I48.0 Paraplegic spinal paralysis G82.20 Chronic indwelling Mcclure catheter Z97.8
--- NOTE | 2023-04-14 19:18 | CT Scan Report ---
Exam(s): CT ABDOMEN + PELVIS With Contrast Oral - High Density Amt: gastro EXAM: CT Abdomen and Pelvis With Intravenous Contrast CLINICAL HISTORY: Reason for exam: increased spasticity, spinal ch inj, recent urol p. TECHNIQUE: Axial computed tomography images of the abdomen and pelvis with intravenous contrast. CTDI is 23.72 mGy and DLP is 1287.64 mGy-cm. Automated exposure control was utilized for the study. A dose lowering technique was utilized adhering to the principles of ALARA. CONTRAST: Patient received gastro of Oral - High Density contrast COMPARISON: No relevant prior studies available. FINDINGS: Mediastinum: Small hiatal hernia. ABDOMEN: Liver: Mild fatty liver. Gallbladder and bile ducts: No radiodense stones. No biliary ductal dilation. Pancreas: Unremarkable. Spleen: Unremarkable. Adrenals: 2.5 cm left adrenal adenoma. Kidneys and ureters: Tiny left nephrolith. No ureteral stones or obstructive changes. Left renal scarring and contour irregularities. Difficult to assess for. Left renal cyst. Stomach and bowel: Nonspecific bowel gas pattern. PELVIS: Appendix: No findings to suggest acute appendicitis. Bladder: Mcclure catheter. Reproductive: Unremarkable. ABDOMEN and PELVIS: Intraperitoneal space: Unremarkable. Bones/joints: No acute fracture. Soft tissues: Subcutaneous edema. Vasculature: IVC filter. Other findings: Isodense lesions. IMPRESSION: 1. Subcutaneous edema. 2. Nonspecific bowel gas pattern. 3. Tiny left nephrolith. No ureteral stones or obstructive changes. Electronically signed by: Katelynn Bright M.D. 04/14/23 19:17 PM
[2023-04-14] MEDS: SIMVASTATIN 20 MG TAB PO SCH (20:23)
[2023-04-14] MEDS: ZOLPIDEM TARTRATE 5 MG TAB PO PRN (20:30)
[2023-04-15] MEDS: oxyCODONE HCL IR 5 MG TAB (IMMEDIATE RELEASE) PO PRN ×2 (03:52→08:06)
[2023-04-15] MEDS: MAGNESIUM OXIDE 400 MG TAB PO SCH (08:01)
[2023-04-15] MEDS: CHOLECALCIFEROL 1,000 UNITS 25 MCG TAB PO SCH (08:01)
[2023-04-15] MEDS: oxyBUTYnin chloride 5 MG TAB PO SCH ×2 (08:01→20:14)
[2023-04-15] MEDS: LIDOCAINE 5% 1 PATCH TD SCH (08:02)
[2023-04-15] MEDS: APIXABAN 5 MG TABLET PO SCH ×2 (08:02→20:15)
[2023-04-15] MEDS: BACLOFEN 20 MG TAB PO SCH ×2 (08:02→20:15)
[2023-04-15] MEDS: PANTOprazole 40 MG TAB PO SCH ×2 (08:02→20:15)
[2023-04-15] MEDS: NYSTATIN POWDER 15GM BTL EXT SCH ×2 (08:03→20:17)
[2023-04-15] MEDS: POLYETHYLENE (MIRALAX) 17 GM PACK PO SCH ×2 (08:03→21:41)
[2023-04-15] MEDS: DOCUSATE SODIUM/SENNA 50/8.6MG TAB PO SCH (08:06)
[2023-04-15] MEDS: ERTAPENEM SODIUM 1,000 MG in SYRINGE 0 ML IV SCH (08:07)
[2023-04-15 08:45] LABS: Hematocrit (blood only) 41.3 % (42.0-52.0); Hemoglobin 14.4 g/dl (14.0-18.0); Mean Corpuscular Hemoglobin 33.3 pg (25.0-34.0); Mean Corpuscular Hgb Conc 34.9 g/dL (32.0-36.0); Mean Corpuscular Volume 95.4 fL (80.0-100.0); Mean Platelet Volume 10.5 fL (9.4-12.4); Platelet Count 286 K/uL (130-400); RDW Coefficient of Variation 13.8 % (11.5-14.5); RDW Standard Deviation 48.2 fL (36.4-46.3); Red Blood Count 4.33 M/uL (4.70-6.10); White Blood Count 11.29 K/ul (4.8-10.8)
[2023-04-15 08:52] LABS: BUN Creatinine Ratio 12.5 (10-20); Calcium 9.1 mg/dl (8.6-10.3); Creatinine Clr Calc Pharmacy 109.1 ml/min; Est GFR (African American) 117.5 ml/min; Est GFR (Non-African American) 101.4 ml/min; Potassium 4.1 mmol/L (3.5-5.1)
[2023-04-15] MEDS: FAMOTIDINE 20 MG TAB PO SCH ×2 (10:55→20:21)
[2023-04-15] MEDS: CEFEPIME 2,000 MG in SYRINGE 0 ML IV SCH ×2 (12:39→20:21)
--- NOTE | 2023-04-15 13:38 | Hospitalist Progress Note ---
Date of Service April 15, 2023 Assessment & Plan (1) Catheter-associated urinary tract infection: Plan: Urine culture with Alcaligenes faecalis - resistant to Levaquin Infectious diseases recommended ertapenem we changed to that subsequently can coordinate home care, last dose as an outpatient 04/18. Increased spasticity and abdominal discomfort has prompted additional abdomen pelvis CT scan on 04/14/2023 these results are pending at the time of this note Urology will require follow-up the patient had cystolitholopaxy with significant reduction in stone burden but no immediate future procedures will have outpatient follow-up required Will need IV antibiotics for 1 week post removal. Switch back to cefepime due to the patient having unexplained spasticity after changing to ertapenem (2) Paroxysmal atrial fibrillation: Plan: Anticoagulation with Eliquis continues to be rate controlled without medications (3) Paraplegic spinal paralysis: Plan: Patient is supportive care at home we will continue to have this coordinated Patient with increased spasticity over the last few days infectious etiologies ruled out cannot rule out some residual pain from ureteral manipulation however it was noted that the patient's gabapentin was stopped on admission this will be restarted (4) Chronic indwelling Mcclure catheter: Plan: Patient will have catheter exchanges and stent exchanges through urology office Plan VTE Prophylaxis - Eliquis Diet - regular Patient remains hospitalized due to escalation of abdominal spasticity and discomfort on 04/15/2023 Admission and Anticipated Discharge Date Admission Date: April 06, 2023 Subjective Patient having increasing spasticity of his abdomen without a defined source. CT scan abdomen pelvis done on the did not show any significant intra- abdominal issues. He is currently being treated with an appropriate antibiotic by sensitivity for his UTIs. He was noted however on the that he had his gabapentin discontinued on admission this will be restarted and the patient was returned back to cefepime as he was having less issues when he is on cefepime over the ertapenem. Most likely he will complete his course here in the hospital as he needs to go through the with antibiotic therapy Physical Exam Physical Exam: Patient awake alert appropriate he is uncomfortable he has palpable stiffening or hardening of abdominal muscles during exam but when they are loose or wax his abdomen is not acute or nontender Results & Data Results & Data Vital Signs (Past 12 Hours) Vital Signs Temp Pulse Resp BP Pulse Ox O2 Del Method 04/15/23 07:28 98.6 F 104 H 18 96/64 L 94 Room Air PG Care Time/CCT Total # of Minutes Spent Total Time Spent with Patient: Total time spent is greater than 50% in coordination of care (as documented) at patient's floor/unit and/or counseling patient: Coding Level of Care Code 40467 SUB INP/OBS CARE 2/35MIN Diagnoses Catheter-associated urinary tract infection T83.511A; N39.0 Paroxysmal atrial fibrillation I48.0 Paraplegic spinal paralysis G82.20 Chronic indwelling Mcclure catheter Z97.8
[2023-04-15] MEDS ORDERED: GABAPENTIN 300 MG CAP PO ONE (13:45)
--- NOTE | 2023-04-15 15:11 | Urology Progress Note ---
Date of Service April 15, 2023 Assessment & Plan (1) Bladder stones: (2) Acute UTI: (3) Neurogenic bladder: Plan: Patient s/p cystolitholapaxy on 04/[address] Temple. Urology asked to reevaluate due to issues with Mcclure catheter. Pt has reported increased spasticity and abdominal discomfort over last few days. Repeat CT abd pelvis 04/14- small left nephrolithiasis, no ureteral stones or obstructive changes. Also noted that gabapentin was stopped on admission and now restarted. Pt was also switched back to cefepime due to the patient having unexplained spasticity after changing to ertapenem. Nursing exchanged to 18Fr Mcclure catheter today as patient felt catheter was not draining well. Mcclure catheter appears to be draining well at this time. Continue to monitor. Continues on IV antibiotics through 04/17. Recommend discharge with Mcclure catheter in place. Plan for monthly catheter changes with nursing. Will arrange outpatient urology follow-up for ongoing management. will sign off, please contact our service with any additional questions. Admission and Anticipated Discharge Date Admission Date: April 06, 2023 Subjective Patient examined at bedside today. Resting in bed on arrival. No acute distress. Mcclure catheter intact, draining clear yellow urine. Nursing at bedside to exchange catheter from 20Fr to 18Fr per patient request. Review of Systems Constitutional: as per Subjective / HPI Genitourinary: + as per Subjective / HPI Physical Exam Constitutional: no acute distress Respiratory: no respiratory distress and no labored breathing Skin: No visible rashes or lesions to exposed skin areas Neurologic: awake Psychiatric: A+Ox3, euthymic affect Genitourinary: Mcclure catheter intact Results & Data Vital Signs (Past 12 Hours) Vital Signs Temp Pulse Resp BP Pulse Ox O2 Del Method 04/15/23 07:28 37 C 104 H 18 96/64 L 94 Room Air PG Care Time/CCT Total # of Minutes Spent Total Time Spent with Patient: Total time spent is greater than 50% in coordination of care (as documented) at patient's floor/unit and/or counseling patient: Coding Level of Care Code 76073 SUB INP/OBS CARE 2/35MIN Diagnoses Bladder stones N21.0 Acute UTI N39.0 Neurogenic bladder N31.9
[2023-04-15] MEDS: SIMVASTATIN 20 MG TAB PO SCH (20:14)
[2023-04-15] MEDS: GABAPENTIN 300 MG CAP PO SCH (20:15)
[2023-04-16] MEDS: CEFEPIME 2,000 MG in SYRINGE 0 ML IV SCH ×3 (04:42→20:44)
[2023-04-16 07:58] LABS: Hematocrit (blood only) 39.5 % (42.0-52.0); Hemoglobin 13.6 g/dl (14.0-18.0); Mean Corpuscular Hemoglobin 32.5 pg (25.0-34.0); Mean Corpuscular Hgb Conc 34.4 g/dL (32.0-36.0); Mean Corpuscular Volume 94.3 fL (80.0-100.0); Mean Platelet Volume 10.2 fL (9.4-12.4); Platelet Count 266 K/uL (130-400); RDW Coefficient of Variation 13.8 % (11.5-14.5); RDW Standard Deviation 47.4 fL (36.4-46.3); Red Blood Count 4.19 M/uL (4.70-6.10); White Blood Count 8.03 K/ul (4.8-10.8)
[2023-04-16 08:10] LABS: BUN Creatinine Ratio 14.9 (10-20); Calcium 8.9 mg/dl (8.6-10.3); Creatinine Clr Calc Pharmacy 117.2 ml/min; Est GFR (Non-African American) 104.4 ml/min; Potassium 4.4 mmol/L (3.5-5.1)
[2023-04-16] MEDS: DOCUSATE SODIUM/SENNA 50/8.6MG TAB PO SCH (09:09)
[2023-04-16] MEDS: POLYETHYLENE (MIRALAX) 17 GM PACK PO SCH ×2 (09:09→20:45)
[2023-04-16] MEDS: NYSTATIN POWDER 15GM BTL EXT SCH ×2 (09:09→20:45)
[2023-04-16] MEDS: LIDOCAINE 5% 1 PATCH TD SCH (09:09)
[2023-04-16] MEDS: MAGNESIUM OXIDE 400 MG TAB PO SCH (09:10)
[2023-04-16] MEDS: BACLOFEN 20 MG TAB PO SCH ×2 (09:10→20:45)
[2023-04-16] MEDS: APIXABAN 5 MG TABLET PO SCH ×2 (09:12→20:45)
[2023-04-16] MEDS: PANTOprazole 40 MG TAB PO SCH ×2 (09:12→20:45)
[2023-04-16] MEDS: oxyBUTYnin chloride 5 MG TAB PO SCH ×2 (09:12→20:44)
[2023-04-16] MEDS: GABAPENTIN 300 MG CAP PO SCH ×2 (09:13→20:45)
[2023-04-16] MEDS: FAMOTIDINE 20 MG TAB PO SCH ×2 (10:20→20:44)
[2023-04-16] MEDS: LORazepam 2 MG/1 ML VIAL IV PRN ×2 (10:20→17:49)
--- NOTE | 2023-04-16 10:41 | Hospitalist Progress Note ---
Date of Service April 16, 2023 Assessment & Plan (1) Catheter-associated urinary tract infection: Plan: Urine culture with Alcaligenes faecalis - resistant to Levaquin Infectious diseases recommended ertapenem we changed to that subsequently can coordinate home care, last dose as an outpatient 04/18. Increased spasticity and abdominal discomfort has prompted additional abdomen pelvis CT scan on 04/14/2023 these results were essentially negative. Urology will require follow-up the patient had cystolitholopaxy with significant reduction in stone burden but no immediate future procedures will have outpatient follow-up required Will need IV antibiotics for 1 week post removal. Switch back to cefepime due to the patient having unexplained spasticity after changing to ertapenem. Symptoms may be from not being on gabapentin. Will resume this medicine. Patient is also unable to get into the wheelchair buy himself. Likely a component deconditioning as patient has been hospitalized for over a week will order PT/OT will also order c diff given his diarrhea (2) Paroxysmal atrial fibrillation: Plan: Anticoagulation with Eliquis continues to be rate controlled without medications (3) Paraplegic spinal paralysis: Plan: Patient is supportive care at home we will continue to have this coordinated Patient with increased spasticity over the last few days infectious etiologies ruled out cannot rule out some residual pain from ureteral manipulation however it was noted that the patient's gabapentin was stopped on admission this will be restarted (4) Chronic indwelling Mcclure catheter: Plan: Patient will have catheter exchanges and stent exchanges through urology office Plan VTE Prophylaxis - Eliquis Diet - regular Patient remains hospitalized due to escalation of abdominal spasticity and discomfort on 04/15/2023 Admission and Anticipated Discharge Date Admission Date: April 06, 2023 Subjective Patient reports he continues to have symptoms of spasticity. Physical Exam Constitutional: well developed; + not well nourished and no acute distress Respiratory: normal respiratory effort, lungs clear to auscultation Cardiovascular: Rate/Rhythm: regular rate and regular rhythm Heart Sounds: no murmur Extremities: + pedal edema (1+ b/l equal pitting edema) Gastrointestinal (Abdomen): Inspection/Auscultation: abdomen normal to inspection; abdomen not distended Percussion/Palpation: abdomen soft (distended); abdomen nontender, no guarding and abdomen not rigid Neurologic: awake; + does not move all extremities (no movement of b/l LE and reduced RUE) and not confused Psychiatric: A+Ox3, euthymic affect Genitourinary: no CVA tenderness Results & Data Results & Data Vital Signs (Past 12 Hours) Vital Signs Temp Pulse Resp BP Pulse Ox O2 Del Method 04/16/23 07:35 36.7 C 82 18 166/68 H 95 Room Air PG Care Time/CCT Total # of Minutes Spent Total Time Spent with Patient: Total time spent is greater than 50% in coordination of care (as documented) at patient's floor/unit and/or counseling patient: Coding Level of Care Code 41805 SUB INP/OBS CARE 235MIN Diagnoses Catheter-associated urinary tract infection T83.511A; N39.0 Paroxysmal atrial fibrillation I48.0 Paraplegic spinal paralysis G82.20 Chronic indwelling Mcclure catheter Z97.8
[2023-04-16 19:06] LABS: Component 2 DNR; Source BLADDER STONE
[2023-04-16] MEDS: SIMVASTATIN 20 MG TAB PO SCH (20:45)
[2023-04-17] MEDS: oxyCODONE HCL IR 5 MG TAB (IMMEDIATE RELEASE) PO PRN (01:45)
[2023-04-17] MEDS: CEFEPIME 2,000 MG in SYRINGE 0 ML IV SCH ×2 (03:38→12:49)
[2023-04-17 06:31] LABS: Cdiff Toxin B Gene (2yr or >) Positive Cdiff Gene (Neg)
[2023-04-17 06:32] LABS: Cdiff Antigen Negative; Cdiff Toxin A+B Negative Cdiff Toxin (Negative)
[2023-04-17 08:04] LABS: Hematocrit (blood only) 41.9 % (42.0-52.0); Hemoglobin 14.5 g/dl (14.0-18.0); Mean Corpuscular Hemoglobin 32.7 pg (25.0-34.0); Mean Corpuscular Hgb Conc 34.6 g/dL (32.0-36.0); Mean Corpuscular Volume 94.4 fL (80.0-100.0); Mean Platelet Volume 10.4 fL (9.4-12.4); Platelet Count 310 K/uL (130-400); RDW Coefficient of Variation 13.9 % (11.5-14.5); RDW Standard Deviation 48.2 fL (36.4-46.3); Red Blood Count 4.44 M/uL (4.70-6.10); White Blood Count 10.05 K/ul (4.8-10.8)
[2023-04-17 08:18] LABS: BUN Creatinine Ratio 15.1 (10-20); C Reactive Protein 1.49 mg/dl (0-0.5); Calcium 9.1 mg/dl (8.6-10.3); Creatinine Clr Calc Pharmacy 107.6 ml/min; Est GFR (African American) 116.9 ml/min; Est GFR (Non-African American) 100.8 ml/min; Phosphorus 3.2 mg/dl (2.5-4.9); Potassium 4.6 mmol/L (3.5-5.1)
[2023-04-17] MEDS: oxyBUTYnin chloride 5 MG TAB PO SCH (09:21)
[2023-04-17] MEDS: CHOLECALCIFEROL 1,000 UNITS 25 MCG TAB PO SCH (09:21)
[2023-04-17] MEDS: GABAPENTIN 300 MG CAP PO SCH (09:21)
[2023-04-17] MEDS: MAGNESIUM OXIDE 400 MG TAB PO SCH (09:22)
[2023-04-17] MEDS: BACLOFEN 20 MG TAB PO SCH (09:22)
[2023-04-17] MEDS: PANTOprazole 40 MG TAB PO SCH (09:22)
[2023-04-17] MEDS: APIXABAN 5 MG TABLET PO SCH (09:23)
[2023-04-17] MEDS: NYSTATIN POWDER 15GM BTL EXT SCH (09:23)
[2023-04-17] MEDS: DOCUSATE SODIUM/SENNA 50/8.6MG TAB PO SCH (09:24)
[2023-04-17] MEDS: POLYETHYLENE (MIRALAX) 17 GM PACK PO SCH (09:24)
[2023-04-17] MEDS ORDERED: SOD PHOSPHATE/SOD BIPHOSPHATE ENEMA 132 ML BTL PR PRN (09:48)
--- NOTE | 2023-04-17 11:00 | XRay Report ---
XR KUB/Abdomen 1 view CLINICAL HISTORY: distended abdomen TECHNIQUE: 1 view of the abdomen was obtained. Comparison: Comparison is made to abdomen radiograph 08/04/2020 FINDINGS: IVC filter is seen. Degenerative changes are seen in the visualized skeleton. Numerous gas-distended loops of small bowel are seen without tabitha dilation. Gas and contrast are seen in the colon. IMPRESSION: Numerous gas-distended loops of small bowel are seen. Within limits of the radiograph, no frankly dil ated loops are seen to suggest obstruction. ACT 112: Negative or not required by law. Electronically signed by: Carlos Rodriguez M.D. 04/17/2023 10:58 AM
[2023-04-17] MEDS: LIDOCAINE 5% 1 PATCH TD SCH (11:41)
[2023-04-17] MEDS: FAMOTIDINE 20 MG TAB PO SCH (12:49)
--- NOTE | 2023-04-17 17:34 | Discharge Summary ---
Date of Service April 17, 2023 Admission HPI Per Admitting Provider Steffanie Maciel is a 58 year old male who presents to the ER with increase in his muscle spasms and spasticity and nausea. He reports similar symptoms every time he gets a UTI. He was recently admitted to [facility] from April 01 - April 04, 2023 due to sepsis with UTI and bladder stones. This was treated with Zosyn and switched to Levaquin on discharge. He was discharged prior to urine culture results which was subsequently resistant to Levaquin. Principal Diagnosis Problem 1 Discharge Exam Constitutional well developed; + not well nourished and no acute distress Respiratory normal respiratory effort, lungs clear to auscultation Cardiovascular Rate/Rhythm: regular rate and regular rhythm Heart Sounds: no murmur Extremities: + pedal edema (1+ b/l equal pitting edema) Gastrointestinal (Abdomen) Inspection/Auscultation: abdomen normal to inspection; abdomen not distended Percussion/Palpation: abdomen soft (distended); abdomen nontender, no guarding and abdomen not rigid Neurologic awake; + does not move all extremities (no movement of b/l LE and reduced RUE) and not confused Psychiatric A+Ox3, euthymic affect Genitourinary no CVA tenderness Discharge Data Allergies Allergy/AdvReac Type Severity Reaction Status Date / Time No Known Allergies Allergy Verified 03/28/23 16:36 Consultations 04/06/23 18:16 ED Decision to Admit Stat 04/07/23 13:14 Consult Infectious Diseases Routine 04/07/23 15:33 Consult Urology Routine Procedures Performed Operation Date: 04/10/23 07:00 Actual Procedures p Cystolithopaxy - Oneal Temple DO Ordered Studies 04/06/23 16:31 CT abd pelvis wo con Stat 04/14/23 14:59 CT Abd and Pelvis [CT abd pelvis oral con only] Routine Hospital Course (1) Catheter-associated urinary tract infection: Urine culture with Alcaligenes faecalis - resistant to Levaquin Infectious diseases recommended ertapenem we changed to that subsequently can coordinate home care, last dose as an outpatient 04/18. Increased spasticity and abdominal discomfort has prompted additional abdomen pelvis CT scan on 04/14/2023 these results were essentially negative. Urology will require follow-up the patient had cystolitholopaxy with significant reduction in stone burden but no immediate future procedures will have outpatient follow-up required Will need IV antibiotics for 1 week post removal: completed on 04/17. Had switched back to cefepime due to the patient having unexplained spasticity after changing to ertapenem, though holding gabapentin may have played a role. resumed gabapentin. Patient is also unable to get into the wheelchair by himself. Likely a component deconditioning as patient has been hospitalized for over a w [place]: however patient refused PT/OT, and was able to get into the wheelchair on day of discharge. C diff gene was positive but negative toxin. Patient is a c diff carried. Diarrhea symptoms improved. Patient felt well and requested to be discharged on 04/17. Patient completed 7 days of antibiotics at 16:00 on 04/17. Midline was pulled and patient was discharged (2) Paroxysmal atrial fibrillation: Anticoagulation with Eliquis continues to be rate controlled without medications (3) Paraplegic spinal paralysis: Patient is supportive care at home we will continue to have this coordinated Patient with increased spasticity over the last few days infectious etiologies ruled out cannot rule out some residual pain from ureteral manipulation however it was noted that the patient's gabapentin was stopped on admission this will be restarted ANTICIPATE his symptoms should improve over the course of the week. (4) Chronic indwelling Mcclure catheter: Patient will have catheter exchanges and stent exchanges through urology office Total Time Total Time Spent Total Time Spent (In Minutes): 32 Discharge Plan Discharge Items Patient Disposition: Home - Home Health Services Reason For Visit: ACUTE UTI Discharge Diagnosis: complicated uti, catheter associated Cystolitholapaxy Condition on Discharge: Fair Activity: Resume your previous activity Non-emergency contact: Primary Care Provider and Urologist Call non-emergency contact if: your symptoms worsen Follow-up/Referrals: Talon Verduzco MD [Primary Care Provider] - 04/21/23 1:00 pm (APPOINTMENT WITH DR BOO) Oneal Temple DO [Physician] - 04/16/23 1:00 pm Diet: Regular Addtl Attending Provider Instructions: please drink plenty of liquids if you notice a change in your urine or fever or spasticity contact urology or your primary care keep catheter in place until urology follow up, expect monthly catheter exchanges Pending Studies at Discharge: No Stand-Alone Forms: [employer], Smoking Cessation Medications and DC Order Prescriptions: New oxycodone 5 mg tablet 5 mg PO TID PRN (Reason: pain) Qty: 14 0RF Continued omeprazole 40 mg capsule,delayed release(DR/EC) 40 mg PO BID Qty: 180 3RF simvastatin 20 mg tablet 20 mg PO HS Qty: 90 3RF (DME) catheter Misc See Rx Instructions .Route Qty: 2 11RF Rx Instructions: As directed (DME) Depend Underwear For Men L-XL Misc See Rx Instructions .Route Qty: 150 11RF Rx Instructions: 5 per day (DME) Curity Bedside Drainage Bag Misc See Rx Instructions .Route Qty: 2 11RF Rx Instructions: As directed (DME) Total Care Underpads Pad See Rx Instructions .Route Qty: 60 11RF Rx Instructions: As directed (DME) Bardia Urinary Drainage Bag Misc See Rx Instructions .Route Qty: 2 11RF Rx Instructions: As directed (DME) Extension Tubing w-Connector Misc See Rx Instructions .Route Qty: 2 11RF Rx Instructions: As directed (DME) latex gloves [Latex Gloves, Large] Misc See Rx Instructions .Route Qty: 250 3RF Rx Instructions: As directed famotidine [Pepcid] 20 mg tablet 20 mg PO BID Qty: 180 3RF prostate complete 1 tab PO HS Eliquis 5 mg tablet 5 mg PO BID Qty: 60 12RF cholecalciferol (vitamin D3) [Vitamin D3] 1,000 unit Capsule 2,000 unit PO QAM magnesium oxide 500 mg Tablet 500 mg PO QAM oxycodone 5 mg tablet 5 mg PO Q8H PRN (Reason: pain) Qty: 6 0RF lidocaine 5 % adhesive patch,medicated 1 patch topical DAILY Rx Instructions: apply 1 patch daily for low back painleave on most painful area up to 12 hours nystatin 100,000 unit/gram powder 1 applic TOPICAL BID Rx Instructions: apply to rash baclofen 20 mg tablet 60 mg PO BID Qty: 540 0RF gabapentin 300 mg capsule 300 mg PO Q12H Qty: 60 0RF oxybutynin chloride 5 mg tablet 10 mg PO BID Qty: 360 0RF Discontinued levofloxacin 750 mg tablet 750 mg PO DAILY 4 Days Qty: 4 0RF Discharge Orders: Discharge Order (Routine); Ordered 04/17/23 Ordered By: Cory Valencia/Other Patient Handouts: UTIs Catheter Linked Admission Data Admit Date/Time: 04/06/23 18:46 Attending Provider: Cory Corea Admit Provider: Tristin Bhagat Primary Care Provider: Talon Verduzco Other Providers: Tristin Bhagat ; Elizabeth Wyatt ; John Mariscal ; Tiffany Reyes ; Janay Orona ; Audrey Levy ; Doreen Engle ; Sweta Villeda ; Brittni Mcgill ; Jessica Morataya Other Interventions: Discharge Summary Assessment (RN) Last Done: 04/17/23 17:09 Coding Level of Care Code 08206 INP/OBS DISCH >30 MIN Diagnoses Catheter-associated urinary tract infection T83.511A; N39.0 Paroxysmal atrial fibrillation I48.0 Paraplegic spinal paralysis G82.20 Chronic indwelling Mcclure catheter Z97.8
== END 2023-04-17 17:30 | disposition home health service (06) | DRG 699 ==
LOC: ED 14:51 → 2N 18:46 → SUATTDRO 18:46 → 2N 21:25 → 3N 04-13 17:21

== ENCOUNTER 2023-04-20 06:33 | Inpatient (IN) ==
--- NOTE | 2023-04-20 07:40 | Emergency Department Note ---
History of Present Illness General Chief complaint: Urinary Symptoms Stated complaint: Bladder Pain, Burning, Hardened Abdomen Time Seen by Provider: 04/20/23 07:00 History of Present Illness 58-year-old male with past medical history significant for paraplegia, bladder stones, paroxysmal A-fib on Eliquis who presents to the emergency department for evaluation of left flank pain and "recurrent bladder infection." Patient is status post laser cystolithotripsy on 04/10/[address] Temple. He was admitted to hospital 04/01- 04/04 as well as 04/06-04/17 for urosepsis. He finished Ertapenem on 04/18/2023. Patient reports developing left upper quadrant abdominal pain as well as left flank pain last night. It is intermittent in nature. There are no alleviating or exacerbating symptoms. He has Mcclure catheter in place since his bladder procedure and states from 5 PM to 530 this morning he only had 1200 mL put out. He denies fever/chills, nausea/vomiting, chest pain, SOB, diarrhea or constipation. He has not taken anything for symptoms. Home Medications Medication Instructions Recorded Confirmed Type cholecalciferol (vitamin D3) 25 2,000 unit PO QAM 06/08/19 04/20/23 History mcg (1,000 unit) capsule (Vitamin D3) omeprazole 40 mg capsule,delayed 40 mg PO BID #180 caps 07/22/22 04/20/23 Rx release simvastatin 20 mg tablet 20 mg PO HS #90 tabs 10/10/22 04/20/23 Rx catheter #2 ea 11/01/22 04/06/23 Rx diaper,brief,adult,disposable #150 ea 11/01/22 04/06/23 Rx (Depend Underwear For Men Large-Extra Large) drainage bag (Curity Bedside #2 ea 11/01/22 04/06/23 Rx Drainage Bag) incontinence pad, liner, disp #60 ea 11/01/22 04/06/23 Rx (Total Care Underpads) urinary bag (Bardia Urinary #2 ea 11/01/22 04/06/23 Rx Drainage Bag) urinary bag accessories (Extension #2 ea 11/01/22 04/06/23 [facility] latex gloves (Latex Gloves, Large) #250 ea 11/26/22 04/06/23 Rx famotidine 20 mg tablet (Pepcid) 20 mg PO BID #180 tabs 12/03/22 04/20/23 Rx apixaban 5 mg tablet (Eliquis) 5 mg PO BID #60 tabs 03/10/23 04/20/23 Rx prostate complete 1 tab PO HS 03/10/23 04/20/23 History magnesium oxide 500 mg tablet 500 mg PO QAM 03/28/23 04/20/23 History lidocaine 5 % topical patch 1 patch topical DAILY 04/01/23 04/20/23 History nystatin 100,000 unit/gram topical 1 applic topical BID 04/01/23 04/20/23 History powder oxycodone 5 mg tablet 5 mg PO TID PRN pain #14 tabs 04/14/23 04/20/23 Rx baclofen 20 mg tablet 60 mg PO BID #540 tabs 04/17/23 04/20/23 Rx gabapentin 300 mg capsule 300 mg PO Q12H #60 caps 04/17/23 04/20/23 Rx oxybutynin chloride 5 mg tablet 10 mg PO BID #360 tabs 04/17/23 04/20/23 Rx Allergies Allergy/AdvReac Type Severity Reaction Status Date / Time No Known Allergies Allergy Verified 03/28/23 16:36 Past Med/Surg History Medical History Acute hemorrhoid Bladder stones HX Deep vein thrombosis 1991 Fusion of spine LUMBAR ([facility] GERD (gastroesophageal reflux disease) [place] filter in place 1991 [place] History of DVT (deep vein thrombosis) History of gastrostomy tube placement Hyperlipidemia Indwelling urinary catheter present Insomnia Nephrolithiasis Neurogenic bladder 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 Paroxysmal atrial fibrillation Spinal cord injury JUNE 1992 Surgical History History of cystoscopy History of surgery "RT/LEFT HAMSTRING AND HIP RELEASES" History of tooth extraction History of tracheostomy Family History Father CHF (congestive heart failure) Mother Diabetes Brother Hypertension Dyslipidemia Diabetes Sister Psychiatric disorder Social History Smoking Status: Current some day smoker Tobacco Type: Cigarettes Age Started Using Tobacco: 15; packs per day: 1; Cigarettes Per Day: 12; Second Hand Exposure: No; Do You Dip or Chew Tobacco: No; Hx Alcohol Use: Yes Alcohol type: beer Alcohol Intake Frequency: 2-4 x/Month Hx Substance Use: Yes Prescribed Medications: Marijuana Last Used Substance Other:: 2020 Preferred Language: Bengali Communication Ability: Effective Visual Impairment: No Limitations Hearing Ability: Normal Belt Loop Maker Required: No Beliefs That Will Affect Care: None marital status: Single Current Living Situation: Other Current Living Situation Comment: Lives with Fiance current occupational status: disabled Feels Safe at Home: Yes Childhood Exposure to Second-Hand Smoke: Yes Diet: regular caffeine: Yes Dental Care, Regularly: No Physical Activity Frequency: Does not Exercise Physical Activity Frequency Comment: physically disabled Seatbelt Use: always Sunscreen Use: Yes Assistive Devices: Scooter/Electric Scooter Physical Exam Vital Signs Vital Signs - 24 hr 04/20/23 06:37 04/20/23 06:26 04/20/23 09:20 Temperature 37.0 C Temperature Source Oral Pulse Rate 96 H Pulse Rate [Finger] 90 Respiratory Rate 18 Respiratory Effort / Characteristics Non-Labored Spontaneous Non-Labored Spontaneous Respiratory Depth Normal Blood Pressure [Right Arm] 121/82 Blood Pressure Mean [Right Arm] 95 Pulse Oximetry 95 93 Oxygen Delivery Method Room Air Sepsis Recent Fever Within 48 Hours No Sepsis New/Unexplained Change in Mental Status No Sepsis Action Taken by Nursing No Action Required 04/20/23 09:20 04/20/23 10:22 04/20/23 12:34 Temperature 37 C Temperature Source Oral Pulse Rate Pulse Rate [Finger] 95 H 74 Respiratory Rate 20 16 Respiratory Effort / Characteristics Non-Labored Respiratory Depth Normal Blood Pressure [Right Arm] 118/83 114/82 Blood Pressure Mean [Right Arm] 94 92 Pulse Oximetry 95 96 Oxygen Delivery Method Room Air Room Air Sepsis Recent Fever Within 48 Hours Sepsis New/Unexplained Change in Mental Status Sepsis Action Taken by Nursing 04/20/23 13:51 04/20/23 14:15 Temperature Temperature Source Pulse Rate 125 H Pulse Rate [Finger] 122 H Respiratory Rate 46 H Respiratory Effort / Characteristics Spontaneous Labored Respiratory Depth Blood Pressure [Right Arm] 175/122 H Blood Pressure Mean [Right Arm] 139 Pulse Oximetry 93 Oxygen Delivery Method Room Air Sepsis Recent Fever Within 48 Hours Sepsis New/Unexplained Change in Mental Status Sepsis Action Taken by Nursing Constitutional: alert and oriented x3. no acute distress. Nontoxic HEENT: normocephalic, atraumatic. normal conjunctiva.PERRLA. EOM's grossly intact. Respiratory: lungs are clear to auscultation without wheezes, rhonchi, or rales bilaterally. equal chest rise. normal respiratory effort, no accessory muscle use. Cardiovascular: normal heart sounds without murmur. regular rate and rhythm. GI: abdomen is soft, mildly distended. Left upper quadrant tenderness to palpation. No palpable masses. No rebound tenderness or guarding. Peripheral vascular: Lower extremities warm and well perfused with palpable pedal pulses. +1 peripheral edema Psych:appropriate mood and affect. Course Administered Medications Discontinued Medications Baclofen (Baclofen 20 Mg Tab) 60 mg PO NOW STA Stop: 04/20/23 13:49 Last Admin: 04/20/23 14:06 Dose: 60 mg Documented By: DARLENE Sodium Chloride (Nss 1000ml) 1,000 mls @ 999 mls/hr IV .Q1H1M ONE Stop: 04/20/23 08:57 Last Infusion: 04/20/23 10:23 Dose: 0 mls/hr Documented By: Admin: 04/20/23 09:16 Dose: 999 mls/hr Documented By: DARLENE Acetaminophen (Ofirmev) 1,000 mg in 100 mls @ 400 mls/hr IV NOW STA Stop: 04/20/23 08:11 Last Infusion: 04/20/23 09:34 Dose: 0 mls/hr Documented By: Admin: 04/20/23 09:15 Dose: 400 mls/hr Documented By: DARLENE Ioversol (Optiray 320 100ml) 95 ml IV ONCE ONE Stop: 04/20/23 10:19 Last Admin: 04/20/23 10:19 Dose: 95 ml Documented By: HARINI Oxybutynin Chloride (Oxybutynin Chloride 5 Mg Tab) 10 mg PO NOW STA Stop: 04/20/23 13:53 Last Admin: 04/20/23 14:06 Dose: 10 mg Documented By: DARLENE Oxycodone HCl (Oxycodone Hcl Ir 5 Mg Tab (Immediate Release)) 5 mg PO NOW STA Stop: 04/20/23 14:21 Last Admin: 04/20/23 14:27 Dose: 5 mg Documented By: NRB Medical Decision Making Differential Diagnosis UTI, bladder stones, cystitis, pyelonephritis, SBO, pneumonia, pleural effusion, pneumothorax, sepsis as well as other pathologies Laboratory Data Attestation: I reviewed the patient's lab results. 04/20/23 07:52 04/20/23 07:52 Lab Results 04/20/23 04/20/23 04/20/23 Range/Units 07:52 07:52 07:52 WBC 11.83 H (4.8-10.8) K/ul RBC 4.28 L (4.70-6.10) M/uL Hgb 14.2 (14.0-18.0) g/dl Hct 40.0 L (42.0-52.0) % MCV 93.5 (80.0-100.0) fL MCH 33.2 (25.0-34.0) pg MCHC 35.5 (32.0-36.0) g/dL RDW Std Deviation 46.5 H (36.4-46.3) fL RDW Coeff of Vanessa 13.7 (11.5-14.5) % Plt Count 309 (130-400) K/uL MPV 10.2 (9.4-12.4) fL Immature Gran % (Auto) 0.3 % Neut % (Auto) 69.7 % Lymph % (Auto) 19.1 % Sully % (Auto) 9.6 % Eos % (Auto) 1.0 % Baso % (Auto) 0.3 % Neut # (Auto) 8.26 H (1.40-6.50) K/uL Lymph # (Auto) 2.26 (1.2-3.4) K/uL Sully # (Auto) 1.13 H (0.11-0.59) K/uL Eos # (Auto) 0.12 (0-0.50) K/uL Baso # (Auto) 0.03 (0-0.2) K/uL Immature Gran # (Auto) 0.03 (0.01-0.20) K/uL Sodium 137 (136-145) mmol/L Potassium 4.5 (3.5-5.1) mmol/L Chloride 103 (98-107) mmol/L Carbon Dioxide 26 (21-32) mmol/L Anion Gap 8 (3-11) BUN 7 (6-23) mg/dl Creatinine 0.63 (0.6-1.4) mg/dl Est Cr Clr Drug Dosing 124.1 ml/min Est GFR ( Amer) 124.1 ml/min Est GFR (Non-Af Amer) 107.1 ml/min BUN/Creatinine Ratio 11.1 (10-20) Glucose 105 H (70-99(Fasting)) mg/dl Lactate 1.6 (0.4-2.0) mmol/L Calcium 9.4 (8.6-10.3) mg/dl Total Bilirubin 0.7 (0.2-1.0) mg/dl AST 54 H (13-39) U/L ALT 38 (7-52) U/L Alkaline Phosphatase 62 (34-104) U/L Total Protein 6.7 (6.0-8.3) gm/dl Albumin 4.0 (3.4-5.0) gm/dl Globulin 2.7 (2.5-4.0) gm/dl Albumin/Globulin Ratio 1.5 (0.9-2) Lipase 20 (11-82) U/L Urine Color Urine Appearance (Clear) Urine pH (4.5-7.5) Ur Specific Bowlus (1.000-1.030) Urine Protein (Negative) Urine Glucose (UA) (Negative) Urine Ketones (Negative) Urine Blood (Negative) Urine Nitrite (Negative) Urine Bilirubin (Negative) Urine Urobilinogen (Negative) Ur Leukocyte Esterase (Negative) Urine RBC (0-4) /hpf Urine WBC (0-5) /hpf Ur Epithelial Cells (0-5) /lpf Calcium Oxalate Crystal (None Prsent) Urine Bacteria (Negative) Urine Mucus (None Prsent) 04/20/23 Range/Units 10:20 WBC (4.8-10.8) K/ul RBC (4.70-6.10) M/uL Hgb (14.0-18.0) g/dl Hct (42.0-52.0) % MCV (80.0-100.0) fL MCH (25.0-34.0) pg MCHC (32.0-36.0) g/dL RDW Std Deviation (36.4-46.3) fL RDW Coeff of Vanessa (11.5-14.5) % Plt Count (130-400) K/uL MPV (9.4-12.4) fL Immature Gran % (Auto) % Neut % (Auto) % Lymph % (Auto) % Sully % (Auto) % Eos % (Auto) % Baso % (Auto) % Neut # (Auto) (1.40-6.50) K/uL Lymph # (Auto) (1.2-3.4) K/uL Sully # (Auto) (0.11-0.59) K/uL Eos # (Auto) (0-0.50) K/uL Baso # (Auto) (0-0.2) K/uL Immature Gran # (Auto) (0.01-0.20) K/uL Sodium (136-145) mmol/L Potassium (3.5-5.1) mmol/L Chloride (98-107) mmol/L Carbon Dioxide (21-32) mmol/L Anion Gap (3-11) BUN (6-23) mg/dl Creatinine (0.6-1.4) mg/dl Est Cr Clr Drug Dosing ml/min Est GFR ( Amer) ml/min Est GFR (Non-Af Amer) ml/min BUN/Creatinine Ratio (10-20) Glucose (70-99(Fasting)) mg/dl Lactate (0.4-2.0) mmol/L Calcium (8.6-10.3) mg/dl Total Bilirubin (0.2-1.0) mg/dl AST (13-39) U/L ALT (7-52) U/L Alkaline Phosphatase (34-104) U/L Total Protein (6.0-8.3) gm/dl Albumin (3.4-5.0) gm/dl Globulin (2.5-4.0) gm/dl Albumin/Globulin Ratio (0.9-2) Lipase (11-82) U/L Urine Color Yellow Urine Appearance Clear (Clear) Urine pH 6.0 (4.5-7.5) Ur Specific Bowlus 1.025 (1.000-1.030) Urine Protein Trace H (Negative) Urine Glucose (UA) Negative (Negative) Urine Ketones 4+ H (Negative) Urine Blood 1+ H (Negative) Urine Nitrite Negative (Negative) Urine Bilirubin 1+ H (Negative) Urine Urobilinogen Negative (Negative) Ur Leukocyte Esterase Negative (Negative) Urine RBC 0-4 (0-4) /hpf Urine WBC 0-5 (0-5) /hpf Ur Epithelial Cells >30 H (0-5) /lpf Calcium Oxalate Crystal Present A (None Prsent) Urine Bacteria Negative (Negative) Urine Mucus Present A (None Prsent) Imaging Data My Impression: Chest x-ray personally reviewed and per my interpretation without focal consolidation, pneumothorax, pleural effusion Radiologist's Impression: Abdomen/Pelvis CT 04/20/23 07:40 CT SCAN OF THE ABDOMEN AND PELVIS WITH IV CONTRAST CLINICAL HISTORY: Left flank pain. Abdominal distention. COMPARISON STUDY: Abdominal CT dated 04/14/2023. TECHNIQUE: Following the IV administration of 95 cc of Optiray 320, CT scan of the abdomen and pelvis is performed from the lung bases to the proximal femora. Images are reviewed in the axial, sagittal, and coronal planes. IV contrast was administered without complication. A dose lowering technique was utilized adhering to the principles of ALARA. CT DOSE: 1175.23 mGy.cm FINDINGS: Lung bases: The heart is normal in size and without pericardial effusion. A fat- containing Bochdalek hernia is seen on the left. The lung bases are clear noting mild bibasilar scarring/atelectasis. There is a small hiatal hernia. Liver: The contrast-enhanced liver is top normal in size and demonstrates diffusely diminished attenuation indicating steatosis. There is no intrahepatic biliary ductal dilatation. The hepatic veins and portal veins are patent. Gallbladder: Unremarkable. Spleen: Normal in size and attenuation. Pancreas: Unremarkable. Adrenal glands: Bilateral adrenal adenomas are unchanged and measure up to 2.4 cm.. Kidneys: The contrast enhanced kidneys are normal in size and without hydronephrosis. The kidneys enhance symmetrically. There are numerous foci of cortical scarring seen throughout the left kidney. A retroaortic left renal vein is incidentally noted. A 3.2 cm cyst is again seen on the left. A punctate nonobstructing calculus is seen on the left. No right renal calculi are identified on this contrast-enhanced examination and there is no ureteral stone. Abdominal vasculature: The abdominal aorta is normal in course and caliber noting mild to moderate atherosclerotic calcification. An infrarenal IVC filter is in place. Several struts extend beyond the lumen of the IVC. There is focal narrowing of the left iliac vein as it opacities posterior to the right iliac artery. This can be seen in May Thurner syndrome. There is chronic appearing nonocclusive thrombus within the left common femoral vein seen on axial image #333. Bowel: There is no bowel obstruction. Residual enteric contrast is seen throughout the colon.. The appendix is well-visualized and normal. Peritoneum: There is no intraperitoneal free air or abdominal ascites. There is a fat-containing umbilical hernia. Lymphadenopathy: None. Pelvic viscera: The bladder is decompressed around a Mcclure catheter and could not be evaluated. The prostate gland is grossly unremarkable. There are bilateral fat-containing inguinal hernias.. Skeletal structures: The skeletal structures are osteopenic. There is moderate lumbosacral spondylosis. No lytic or blastic lesions are seen. IMPRESSION: 1. No acute infectious or inflammatory findings are identified in the abdomen or pelvis. 2. An IVC filter is in place. 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 3. Foci of cortical scarring are again seen throughout the left kidney. 4. The bladder is decompressed around a Mcclure catheter and could not be evaluated. 5. Hepatic steatosis. 6. Punctate nonobstructing left renal calculus. 7. Additional findings as above. ACT 112: Negative or not required by law. Electronically signed by: Denys House M.D. 04/20/2023 10:55 AM Chest X-Ray 04/20/23 07:45 SINGLE VIEW CHEST CLINICAL HISTORY: Left upper quadrant abdominal pain. FINDINGS: AP, portable, supine and erect chest radiographs are compared to study dated 03/31/2023. The examination is degraded by portable technique, apical lordotic positioning, and patient rotation. The heart is mildly enlarged. The pulmonary vasculature is nondistended congested. Chronic interstitial thickening is similar to previous. There is bibasilar scarring/atelectasis. The lungs and pleural spaces are otherwise clear. No pneumothorax is seen. The skeletal structures are osteopenic. The bony thorax is grossly intact. Postsurgical changes is noted in the or cervical spine. IMPRESSION: No acute cardiopulmonary abnormality. ACT 112: Negative or not required by law. Electronically signed by: Denys House M.D. 04/20/2023 8:44 AM MDM Narrative 58-year-old male with indwelling Mcclure catheter, history of bladder stones s/p cystolitholapaxy, paraplegic who presents to the emergency department for evaluation of left flank pain and bladder spasms. Review of pertinent visits and past medical history performed. Vital signs in ED within normal limits, af ebrile. Patient was recently admitted to hospital from 04/06-04/17 for urosepsis. He finished course of ertapenem on 04/18/2023. He started with left flank pain last night. He has history of chronic bladder spasms IV access was established and labs were obtained. CBC demonstrates mild leukocytosis of 11.8. No acute anemia. CMP without significant electrolyte abnormalities. Renal function within normal limits. Lactate 1.6. AST mildly elevated at 54. Remainder of LFTs unremarkable. Lipase unremarkable. Urinalysis demonstrates plus for ketones and some minimal blood as well as greater than 30 epithelial cells. This is most consistent with contamination. A CT abdomen/pelvis with contrast was performed to evaluate left flank pain. This was relatively unremarkable. No evidence of kidney stone, pyelonephritis, hydronephrosis, obstruction. On exam, patient is nontoxic-appearing in no acute distress. His abdomen is mildly distended with mild tenderness to palpation in the left upper quadrant. Indwelling Mcclure catheter in place. Remainder of physical exam unremarkable. He was treated with IV Tylenol as well as 1 L of fluids. Patient was updated on all exam findings and test results upon reevaluation. Increasing bladder spasms most likely secondary to dehydration and/or manipulation from the Mcclure catheter. His Mcclure catheter was most recently changed 04/15/2023 prior to discharge from the hospital. There is no signs of overt infection. I do not feel he needs additional antibiotics at this time. He has follow-up this week with urology. We discussed outpatient management and patient was initially agreeable, however, while awaiting transportation he expressed increasing bladder pain and concern that he has no one at home to care for him. He usually has home health to assist in his care but due to it being Friday they will not be around. He was provided with his home doses of Baclofen and Oxybutynin for his bladder spasms. Case was then discussed with hospitalist PA, Christian Collins, who graciously accepted patient to their service for further management. Patient was admitted in stable condition. Case discussed with ED attending, Dr. Stern, who agrees with work-up and treatment plan Impression & Plan Acute left flank pain, Indwelling Mcclure catheter calcification Discharge Plan Visit Data Chief Complaint: Urinary Symptoms Stated Complaint: Bladder Pain, Burning, Hardened Abdomen ED Provider: Shira Stern ED Midlevel Provider: Namita Duncan Discharge Problem: Acute left flank pain, Indwelling Mcclure catheter calcification Patient Disposition: Home - Self-Care Condition: Good Discharge Instructions Activity Restrictions/Additional Instructions: Please follow-up with urology as scheduled this week for reevaluation. Take medications as prescribed. Use baclofen for muscle spasms. Take Tylenol as needed for pain. Return to ED for worsening or new concerning symptoms including fever, uncontrolled pain, blood in urine, etc Forms Stand Alone Forms: [facility], [facility] Emergency Department, Important Visit Information Prescriptions Prescriptions: No Action omeprazole 40 mg capsule,delayed release(DR/EC) 40 mg PO BID Qty: 180 3RF simvastatin 20 mg tablet 20 mg PO HS Qty: 90 3RF (DME) catheter Misc See Rx Instructions .Route Qty: 2 11RF Rx Instructions: As directed (DME) Depend Underwear For Men L-XL Misc See Rx Instructions .Route Qty: 150 11RF Rx Instructions: 5 per day (DME) Curity Bedside Drainage Bag Misc See Rx Instructions .Route Qty: 2 11RF Rx Instructions: As directed (DME) Total Care Underpads Pad See Rx Instructions .Route Qty: 60 11RF Rx Instructions: As directed (DME) Bardia Urinary Drainage Bag Misc See Rx Instructions .Route Qty: 2 11RF Rx Instructions: As directed (DME) Extension Tubing w-Connector Misc See Rx Instructions .Route Qty: 2 11RF Rx Instructions: As directed (DME) latex gloves [Latex Gloves, Large] Misc See Rx Instructions .Route Qty: 250 3RF Rx Instructions: As directed famotidine [Pepcid] 20 mg tablet 20 mg PO BID Qty: 180 3RF prostate complete 1 tab PO HS Eliquis 5 mg tablet 5 mg PO BID Qty: 60 12RF cholecalciferol (vitamin D3) [Vitamin D3] 1,000 unit Capsule 2,000 unit PO QAM magnesium oxide 500 mg Tablet 500 mg PO QAM lidocaine 5 % adhesive patch,medicated 1 patch topical DAILY Rx Instructions: apply 1 patch daily for low back pain leave on most painful area up to 12 hours nystatin 100,000 unit/gram powder 1 applic TOPICAL BID Rx Instructions: apply to rash oxycodone 5 mg tablet 5 mg PO TID PRN (Reason: pain) Qty: 14 0RF baclofen 20 mg tablet 60 mg PO BID Qty: 540 0RF gabapentin 300 mg capsule 300 mg PO Q12H Qty: 60 0RF oxybutynin chloride 5 mg tablet 10 mg PO BID Qty: 360 0RF Referrals Referrals: Talon Verduzco MD [Primary Care Provider] - Oneal Temple DO [Physician] - (ED Urology Follow up)
[2023-04-20] MEDS ORDERED: ACETAMINOPHEN 1,000 MG/100 ML VIAL IV STA (07:57)
[2023-04-20] MEDS ORDERED: SODIUM CHLORIDE 0.9% 1000ML 1,000 ML IV ONE (07:57)
[2023-04-20 08:13] LABS: Basophils # (auto) 0.03 K/uL (0-0.2); Basophils % (auto) 0.3 %; Eosinophils # (auto) 0.12 K/uL (0-0.50); Hemoglobin 14.2 g/dl (14.0-18.0); Immature Granulocytes # (auto) 0.03 K/uL (0.01-0.20); Immature Granulocytes % (auto) 0.3 %; Lymphocytes # (auto) 2.26 K/uL (1.2-3.4); Lymphocytes % (auto) 19.1 %; Mean Corpuscular Hemoglobin 33.2 pg (25.0-34.0); Mean Corpuscular Hgb Conc 35.5 g/dL (32.0-36.0); Mean Corpuscular Volume 93.5 fL (80.0-100.0); Mean Platelet Volume 10.2 fL (9.4-12.4); Monocytes # (auto) 1.13 K/uL (0.11-0.59); Monocytes % (auto) 9.6 %; Neutrophils # (auto) 8.26 K/uL (1.40-6.50); Neutrophils % (auto) 69.7 %; Platelet Count 309 K/uL (130-400); RDW Coefficient of Variation 13.7 % (11.5-14.5); RDW Standard Deviation 46.5 fL (36.4-46.3); Red Blood Count 4.28 M/uL (4.70-6.10); White Blood Count 11.83 K/ul (4.8-10.8)
[2023-04-20 08:25] LABS: Albumin Globulin Ratio 1.5 (0.9-2); BUN Creatinine Ratio 11.1 (10-20); Bilirubin,Total 0.7 mg/dl (0.2-1.0); Calcium 9.4 mg/dl (8.6-10.3); Creatinine Clr Calc Pharmacy 124.1 ml/min; Est GFR (African American) 124.1 ml/min; Est GFR (Non-African American) 107.1 ml/min; Globulin 2.7 gm/dl (2.5-4.0); Potassium 4.5 mmol/L (3.5-5.1); Total Protein 6.7 gm/dl (6.0-8.3)
--- NOTE | 2023-04-20 08:45 | XRay Report ---
SINGLE VIEW CHEST CLINICAL HISTORY: Left upper quadrant abdominal pain. FINDINGS: AP, portable, supine and erect chest radiographs are compared to study dated 03/31/2023. The examination is degraded by portable technique, apical lordotic positioning, and patient rotation. T he heart is mildly enlarged. The pulmonary vasculature is nondistended congested. Chronic interstitia l thickening is similar to previous. There is bibasilar scarring/atelectasis. The lungs and pleural s paces are otherwise clear. No pneumothorax is seen. The skeletal structures are osteopenic. The bony thorax is grossly intact. Postsurgical changes is noted in the or cervical spine. IMPRESSION: No acute cardiopulmonary abnormality. ACT 112: Negative or not required by law. Electronically signed by: Denys House M.D. 04/20/2023 8:44 AM
[2023-04-20] MEDS ORDERED: OPTIRAY 320 100ml IV ONE (10:18)
[2023-04-20 10:28] LABS: Appearance Urine Clear (Clear); Bilirubin Urine 1+ (Negative); Blood Urine 1+ (Negative); Color Urine Yellow; Glucose Urine UA Negative (Negative); Ketones Urine 4+ (Negative); Leukocyte Esterase Urine Negative (Negative); Nitrite Urine Negative (Negative); Protein Urine Trace (Negative); Specific Gravity Urine 1.025 (1.000-1.030); Urobilinogen Urine Negative (Negative)
[2023-04-20 10:39] LABS: Calcium Oxalate Crystals Urine Present (None Prsent); Epithelial Cell Urine >30 /lpf (0-5); Mucus Urine Present (None Prsent); RBC Urine 0-4 /hpf (0-4)
[2023-04-20 10:40] LABS: Bacteria Urine Negative (Negative); WBC Urine 0-5 /hpf (0-5)
--- NOTE | 2023-04-20 10:57 | CT Scan Report ---
CT SCAN OF THE ABDOMEN AND PELVIS WITH IV CONTRAST CLINICAL HISTORY: Left flank pain. Abdominal distention. COMPARISON STUDY: Abdominal CT dated 04/14/2023. TECHNIQUE: Following the IV administration of 95 cc of Optiray 320, CT scan of the abdomen and pelvi s is performed from the lung bases to the proximal femora. Images are reviewed in the axial, sagittal , and coronal planes. IV contrast was administered without complication. A dose lowering technique wa s utilized adhering to the principles of ALARA. CT DOSE: 1175.23 mGy.cm FINDINGS: Lung bases: The heart is normal in size and without pericardial effusion. A fat-containing Bochdalek hernia is seen on the left. The lung bases are clear noting mild bibasilar scarring/atelectasis. Ther e is a small hiatal hernia. Liver: The contrast-enhanced liver is top normal in size and demonstrates diffusely diminished attenu ation indicating steatosis. There is no intrahepatic biliary ductal dilatation. The hepatic veins and portal veins are patent. Gallbladder: Unremarkable. Spleen: Normal in size and attenuation. Pancreas: Unremarkable. Adrenal glands: Bilateral adrenal adenomas are unchanged and measure up to 2.4 cm.. Kidneys: The contrast enhanced kidneys are normal in size and without hydronephrosis. The kidneys enh ance symmetrically. There are numerous foci of cortical scarring seen throughout the left kidney. A r etroaortic left renal vein is incidentally noted. A 3.2 cm cyst is again seen on the left. A punctate nonobstructing calculus is seen on the left. No right renal calculi are identified on this contrast- enhanced examination and there is no ureteral stone. Abdominal vasculature: The abdominal aorta is normal in course and caliber noting mild to moderate at herosclerotic calcification. An infrarenal IVC filter is in place. Several struts extend beyond the l umen of the IVC. There is focal narrowing of the left iliac vein as it opacities posterior to the rig ht iliac artery. This can be seen in May Thurner syndrome. There is chronic appearing nonocclusive th rombus within the left common femoral vein seen on axial image #333. Bowel: There is no bowel obstruction. Residual enteric contrast is seen throughout the colon.. The ap pendix is well-visualized and normal. Peritoneum: There is no intraperitoneal free air or abdominal ascites. There is a fat-containing umbi lical hernia. Lymphadenopathy: None. Pelvic viscera: The bladder is decompressed around a Mcclure catheter and could not be evaluated. The p rostate gland is grossly unremarkable. There are bilateral fat-containing inguinal hernias.. Skeletal structures: The skeletal structures are osteopenic. There is moderate lumbosacral spondylosi s. No lytic or blastic lesions are seen. IMPRESSION: 1. No acute infectious or inflammatory findings are identified in the abdomen or pelvis. 2. An IVC filter is in place. There is chronic appearing deep venous thrombosis identified in the lef t common femoral vein, and compression of the left iliac vein as it passes posterior to the right bety ac artery suggests May Thurner syndrome. 3. Foci of cortical scarring are again seen throughout the left kidney. 4. The bladder is decompressed around a Mcclure catheter and could not be evaluated. 5. Hepatic steatosis. 6. Punctate nonobstructing left renal calculus. 7. Additional findings as above. ACT 112: Negative or not required by law. Electronically signed by: Denys House M.D. 04/20/2023 10:55 AM
[2023-04-20] MEDS ORDERED: BACLOFEN 20 MG TAB PO STA (13:48)
[2023-04-20] MEDS ORDERED: oxyBUTYnin chloride 5 MG TAB PO STA (13:52)
[2023-04-20] MEDS ORDERED: oxyCODONE HCL IR 5 MG TAB (IMMEDIATE RELEASE) PO STA (14:20)
[2023-04-20] MEDS ORDERED: LORazepam 1 MG TAB PO STA (14:33)
[2023-04-20] MEDS ORDERED: LACTATED RINGER'S 1,000 ML IV ONE (14:39)
[2023-04-20] MEDS ORDERED: PHENAZOPYRIDINE HCL 200 MG TAB PO PRN (14:42)
--- NOTE | 2023-04-20 14:59 | History & Physical Report ---
Date of Service April 20, 2023 Assessment & Plan (1) Bladder spasms: Plan: -Admit to med/tele -Currently stable -Patient presented back to the ED today after being discharged home from [facility] on 04/17 due to catheter associated UTI and bladder stones causing severe pain >Completed course of cefepime for UTI, no signs of UTI today >Underwent Laser Cystolitholapaxy on 04/[address] Temple during his last admission, 20+ bladder stones were removed at that time -CT of the abd/pelvis w/IV con today are without acute changes, love appears to be working properly -Patient states he cannot safely care for himself at home with the uncontrolled pain at this time -Will give 1gm PO ativan, home dose of 5 mg PO Oxycodone, and home dose of BID PO baclofen now -Will do a trial of prn Pyridium on top of his current home regimen of antispasmodics and analgesics to see if it provides additional relief -Explained to the patient that we need to avoid IV pain medications as we need to find an adequate PO regimen for discharge -Continue home Oxybutynin, 5 mg PO oxycodone TID prn pain (5+) -If no significant improvement overnight would consult Urology for re-evalaution -Continue home Eliquis for DVT PPX -AM CBC, CMP, PT/INR (2) Neurogenic bladder: Plan: -Chronic love dependent -Continue daily love care (3) Paraplegia: Plan: -Continue baclofen for spasms -Continue gabapentin for neuropathic pain -PT/OT consults placed (4) Paroxysmal atrial fibrillation: Plan: -Will obtain ECG on admission to evaluate his tachycardia, appears to be due to his anxiety and pain at this time -Continue Eliquis -Monitor on tele for tachycardia (5) GERD (gastroesophageal reflux disease): Plan: -Continue PPI Plan The patient was seen with and discussed with Dr. Bhagat at the time of the admission -Heart healthy diet History of Present Illness Chief Complaint: Uncontrolled bladder spams pain Primary Care Provider: Talon Verduzco MD 58-year-old male with past medical history significant for history of spinal cord injury at C5-C6 level with residual paresis, history of neurogenic bladder with chronic indwelling Love catheter, GERD, hyperlipidemia, history of DVT on anticoagulation with Eliquis and bladder stones S/P cystolitholopaxy and bladder stone removal with urology on 04/10/23 who presented to the [facility] ED onb 04/20 due to uncontrolled bladder spasm pain. In the ED the patient was tachycardic with HR in the 120's but otherwise stable. Labs were significant for a leukocytosis of 11 with left shift of 8 and UA not suggestive of acute infection. Chest xray was negative for acute findings. CT of the abd/pelvis w/IV con was read as "1. No acute infectious or inflammatory findings are identified in the abdomen or pelvis. 2. An IVC filter is in place. 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 3. Foci of cortical scarring are again seen throughout the left kidney. 4. The bladder is decompressed around a Love catheter and could not be evaluated. 5. Hepatic steatosis. 6. Punctate nonobstructing left renal calculus. 7. Additional findings as above.". The patient was initially given 1L NSS and 1gm IV tylenol with plans to discharged home as he has FU later this week in the [facility]rology [facility]. While the patient was waiting for transport he began to have a panic attack saying that he could not adequately care for himself at home at this time and his fiance is unable to care adequately for him. At the time of the exam the patient was lying in bed, anxious appearing, and tachypneic. He states that his chronic bladder spasm pain is severe and he won't be able to transfer himself safely at home right now. We explained that his workup today has been negative and started speaking with him about plans for discharge if he were to be admitted. When speaking about the possible need for rehab/SNF he denied wanting to be placed. However, after further discussions he is in agreement with being seen by PT/OT and speaking with care managers regarding short-term placement if needed. He denies recent fevers, chills, chest pain, SOB, new abd pain, nausea, vomiting, diarrhea, and recent falls/trauma. Please refer to Dr. Bhagat's attestation for any changes to the treatment plan Allergies Allergy/AdvReac Type Severity Reaction Status Date / Time No Known Allergies Allergy Verified 03/28/23 16:36 Home Medications Medication Instructions Recorded Confirmed Type cholecalciferol (vitamin D3) 25 2,000 unit PO QAM 06/08/19 04/20/23 History mcg (1,000 unit) capsule (Vitamin D3) omeprazole 40 mg capsule,delayed 40 mg PO BID #180 caps 07/22/22 04/20/23 Rx release simvastatin 20 mg tablet 20 mg PO HS #90 tabs 10/10/22 04/20/23 Rx catheter #2 ea 11/01/22 04/06/23 Rx diaper,brief,adult,disposable #150 ea 11/01/22 04/06/23 Rx (Depend Underwear For Men Large-Extra Large) drainage bag (Curity Bedside #2 ea 11/01/22 04/06/23 Rx Drainage Bag) incontinence pad, liner, disp #60 ea 11/01/22 04/06/23 Rx (Total Care Underpads) urinary bag (Bardia Urinary #2 ea 11/01/22 04/06/23 Rx Drainage Bag) urinary bag accessories (Extension #2 ea 11/01/22 04/06/23 Rx Tubing w-Connector misc) latex gloves (Latex Gloves, Large) #250 ea 11/26/22 04/06/23 Rx famotidine 20 mg tablet (Pepcid) 20 mg PO BID #180 tabs 12/03/22 04/20/23 Rx apixaban 5 mg tablet (Eliquis) 5 mg PO BID #60 tabs 03/10/23 04/20/23 Rx prostate complete 1 tab PO HS 03/10/23 04/20/23 History magnesium oxide 500 mg tablet 500 mg PO QAM 03/28/23 04/20/23 History lidocaine 5 % topical patch 1 patch topical DAILY 04/01/23 04/20/23 History nystatin 100,000 unit/gram topical 1 applic topical BID 04/01/23 04/20/23 History powder oxycodone 5 mg tablet 5 mg PO TID PRN pain #14 tabs 04/14/23 04/20/23 Rx baclofen 20 mg tablet 60 mg PO BID #540 tabs 04/17/23 04/20/23 Rx gabapentin 300 mg capsule 300 mg PO Q12H #60 caps 04/17/23 04/20/23 Rx oxybutynin chloride 5 mg tablet 10 mg PO BID #360 tabs 04/17/23 04/20/23 Rx Past Med/Surg History Medical History Acute hemorrhoid Bladder stones HX Deep vein thrombosis 1991 Fusion of spine LUMBAR ([facility]) GERD (gastroesophageal reflux disease) Ramiro filter in place 1991 [place] History of DVT (deep vein thrombosis) History of gastrostomy tube placement Hyperlipidemia Indwelling urinary catheter present Insomnia Nephrolithiasis Neurogenic bladder 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 Paroxysmal atrial fibrillation Spinal cord injury JUNE 1992 Surgical History History of cystoscopy History of surgery "RT/LEFT HAMSTRING AND HIP RELEASES" History of tooth extraction History of tracheostomy Family History Father CHF (congestive heart failure) Mother Diabetes Brother Hypertension Dyslipidemia Diabetes Sister Psychiatric disorder Social History Smoking Status: Current some day smoker Tobacco Type: Cigarettes Age Started Using Tobacco: 15; packs per day: 1; Cigarettes Per Day: 12; Second Hand Exposure: No; Do You Dip or Chew Tobacco: No; Hx Alcohol Use: Yes Alcohol type: beer Alcohol Intake Frequency: 2-4 x/Month Hx Substance Use: Yes Prescribed Medications: Marijuana Last Used Substance Other:: 2020 Preferred Language: Luxembourgish Communication Ability: Effective Visual Impairment: No Limitations Hearing Ability: Normal Coding Quality Analyst Required: No Beliefs That Will Affect Care: None marital status: Single Current Living Situation: Other Current Living Situation Comment: Lives with Fiance current occupational status: disabled Feels Safe at Home: Yes Childhood Exposure to Second-Hand Smoke: Yes Diet: regular caffeine: Yes Dental Care, Regularly: No Physical Activity Frequency: Does not Exercise Physical Activity Frequency Comment: physically disabled Seatbelt Use: always Sunscreen Use: Yes Assistive Devices: Scooter/Electric Scooter Physical Exam Physical Exam: Physical Exam: General: In distress due to anxiety and bladder spasms, stated age, malnourished and chronically ill appearing but non-toxic HEENT: Normocephalic, atraumatic, no scleral icterus, pupils around round, symmetrical, and reactive to light, moist mucus membranes, trachea midline, no thyromegaly Chest/Pulm: No respiratory distress, symmetrical chest expansion, clear breath sounds throughout Cardiac: tachycardic rate, regular rhythm, no murmurs noted Abdomen: Negative for ascites and bruising, normoactive bowel sounds, soft, tender to palpation in the left upper, left lower abdomen, and suprapubic region : Love cath is in place and draining clear, yellow urine Musculoskeletal: Baseline spasticity of the upper and lower extremities Extremities: Radial, dorsalis pedis, and posterior tibial pulses are intact and symmetrical, no edema noted in the BL LE's Skin: Warm, dry, no rashes , lesions, or scars noted Neuro: Alert and oriented to person, place, month, year, and president, no focal defects, baseline spasticity of the upper and lower extremities Psych: Anxious but able to be redirected, cooperative during the exam Results & Data Results & Data Vital Signs (Past 12 Hours) Vital Signs Temp Pulse Pulse Resp BP Pulse Ox O2 Del Method 04/20/23 14:15 125 H 04/20/23 13:51 122 H 46 H 175/122 H 93 Room Air 04/20/23 12:34 37 C 04/20/23 10:22 74 16 114/82 96 Room Air 04/20/23 09:20 95 H 20 118/83 95 Room Air 04/20/23 09:20 96 H 93 04/20/23 06:37 37.0 C 90 18 121/82 95 Room Air Laboratory Results Abnormal lab results 04/20/23 04/20/23 04/20/23 Range/Units 07:52 07:52 10:20 WBC 11.83 H (4.8-10.8) K/ul RBC 4.28 L (4.70-6.10) M/uL Hct 40.0 L (42.0-52.0) % RDW Std Deviation 46.5 H (36.4-46.3) fL Neut # (Auto) 8.26 H (1.40-6.50) K/uL [place] # (Auto) 1.13 H (0.11-0.59) K/uL Glucose 105 H (70-99(Fasting)) mg/dl AST 54 H (13-39) U/L Urine Protein Trace H (Negative) Urine Ketones 4+ H (Negative) Urine Blood 1+ H (Negative) Urine Bilirubin 1+ H (Negative) Ur Epithelial Cells >30 H (0-5) /lpf Calcium Oxalate Crystal Present A (None Prsent) Urine Mucus Present A (None Prsent) Diagnostic Findings Abdomen/Pelvis CT 04/20/23 07:40 CT SCAN OF THE ABDOMEN AND PELVIS WITH IV CONTRAST CLINICAL HISTORY: Left flank pain. Abdominal distention. COMPARISON STUDY: Abdominal CT dated 04/14/2023. TECHNIQUE: Following the IV administration of 95 cc of Optiray 320, CT scan of the abdomen and pelvis is performed from the lung bases to the proximal femora. Images are reviewed in the axial, sagittal, and coronal planes. IV contrast was administered without complication. A dose lowering technique was utilized adher ing to the principles of ALARA. CT DOSE: 1175.23 mGy.cm FINDINGS: Lung bases: The heart is normal in size and without pericardial effusion. A fat- containing Bochdalek hernia is seen on the left. The lung bases are clear noting mild bibasilar scarring/atelectasis. There is a small hiatal hernia. Liver: The contrast-enhanced liver is top normal in size and demonstrates diffusely diminished attenuation indicating steatosis. There is no intrahepatic biliary ductal dilatation. The hepatic veins and portal veins are patent. Gallbladder: Unremarkable. Spleen: Normal in size and attenuation. Pancreas: Unremarkable. Adrenal glands: Bilateral adrenal adenomas are unchanged and measure up to 2.4 cm.. Kidneys: The contrast enhanced kidneys are normal in size and without hydronephrosis. The kidneys enhance symmetrically. There are numerous foci of cortical scarring seen throughout the left kidney. A retroaortic left renal vein is incidentally noted. A 3.2 cm cyst is again seen on the left. A punctate nonobstructing calculus is seen on the left. No right renal calculi are identified on this contrast-enhanced examination and there is no ureteral stone. Abdominal vasculature: The abdominal aorta is normal in course and caliber noting mild to moderate atherosclerotic calcification. An infrarenal IVC filter is in place. Several struts extend beyond the lumen of the IVC. There is focal narrowing of the left iliac vein as it opacities posterior to the right iliac artery. This can be seen in May Thurner syndrome. There is chronic appearing nonocclusive thrombus within the left common femoral vein seen on axial image #333. Bowel: There is no bowel obstruction. Residual enteric contrast is seen throughout the colon.. The appendix is well-visualized and normal. Peritoneum: There is no intraperitoneal free air or abdominal ascites. There is a fat-containing umbilical hernia. Lymphadenopathy: None. Pelvic viscera: The bladder is decompressed around a Love catheter and could not be evaluated. The prostate gland is grossly unremarkable. There are bilateral fat-containing inguinal hernias.. Skeletal structures: The skeletal structures are osteopenic. There is moderate lumbosacral spondylosis. No lytic or blastic lesions are seen. IMPRESSION: 1. No acute infectious or inflammatory findings are identified in the abdomen or pelvis. 2. An IVC filter is in place. 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 3. Foci of cortical scarring are again seen throughout the left kidney. 4. The bladder is decompressed around a Love catheter and could not be evaluated. 5. Hepatic steatosis. 6. Punctate nonobstructing left renal calculus. 7. Additional findings as above. ACT 112: Negative or not required by law. Electronically signed by: Denys House M.D. 04/20/2023 10:55 AM Chest X-Ray 04/20/23 07:45 SINGLE VIEW CHEST CLINICAL HISTORY: Left upper quadrant abdominal pain. FINDINGS: AP, portable, supine and erect chest radiographs are compared to study dated 03/31/2023. The examination is degraded by portable technique, apical lordotic positioning, and patient rotation. The heart is mildly enlarged. The pulmonary vasculature is nondistended congested. Chronic interstitial thickening is similar to previous. There is bibasilar scarring/atelectasis. The lungs and pleural spaces are otherwise clear. No pneumothorax is seen. The skeletal structures are osteopenic. The bony thorax is grossly intact. Postsurgical changes is noted in the or cervical spine. IMPRESSION: No acute cardiopulmonary abnormality. ACT 112: Negative or not required by law. Electronically signed by: Denys House M.D. 04/20/2023 8:44 AM Code Status & VTE Plan Code Status Full code VTE Prophylaxis Plan VTE Prophylaxis will be ordered: Yes PG Care Time/CCT Total # of Minutes Spent Total Time Spent with Patient: Total time spent is greater than 50% in coordination of care (as documented) at patient's floor/unit and/or counseling patient: Coding [place] [address] INT INP/OBS CARE MIN Patient Type Established History Comprehensive Exam Comprehensive Medical Decision Making High Complexity Diagnoses Bladder spasms N32.89 Neurogenic bladder N31.9 Paraplegia G82.20 Paroxysmal atrial fibrillation I48.0 GERD (gastroesophageal reflux disease) K21.9
[2023-04-20] MEDS ORDERED: POLYETHYLENE (MIRALAX) 17 GM PACK PO SCH (15:30)
[2023-04-20] MEDS ORDERED: oxyCODONE HCL IR 5 MG TAB (IMMEDIATE RELEASE) PO PRN (19:23)
[2023-04-20] MEDS ORDERED: ACETAMINOPHEN 1,000 MG/100 ML VIAL IV PRN (19:23)
[2023-04-20] MEDS: GABAPENTIN 300 MG CAP PO SCH (20:30)
[2023-04-20] MEDS: BACLOFEN 20 MG TAB PO SCH (20:31)
[2023-04-20] MEDS: oxyBUTYnin chloride 5 MG TAB PO SCH (20:32)
[2023-04-20] MEDS: PANTOprazole 40 MG TAB PO SCH (20:32)
[2023-04-20] MEDS: FAMOTIDINE 20 MG TAB PO SCH (20:32)
[2023-04-20] MEDS: APIXABAN 5 MG TABLET PO SCH (20:33)
[2023-04-20] MEDS: SIMVASTATIN 20 MG TAB PO SCH (20:33)
[2023-04-20] MEDS ORDERED: SOD PHOSPHATE/SOD BIPHOSPHATE ENEMA 132 ML BTL PR SCH (21:00)
[2023-04-20] MEDS ORDERED: Nursing to Pharmacy Communication SCH (21:45)
[2023-04-21 06:34] LABS: BUN Creatinine Ratio 10.9 (10-20); Calcium 8.8 mg/dl (8.6-10.3); Creatinine Clr Calc Pharmacy 140.8 ml/min; Est GFR (African American) 131.3 ml/min; Est GFR (Non-African American) 113.3 ml/min; Magnesium 1.7 mg/dl (1.7-2.4); Potassium 3.8 mmol/L (3.5-5.1)
[2023-04-21 06:40] LABS: Basophils # (auto) 0.03 K/uL (0-0.2); Basophils % (auto) 0.4 %; Eosinophils # (auto) 0.15 K/uL (0-0.50); Eosinophils % (auto) 1.8 %; Hemoglobin 12.6 g/dl (14.0-18.0); Immature Granulocytes # (auto) 0.03 K/uL (0.01-0.20); Immature Granulocytes % (auto) 0.4 %; Lymphocytes # (auto) 1.93 K/uL (1.2-3.4); Lymphocytes % (auto) 23.4 %; Mean Corpuscular Hemoglobin 33.2 pg (25.0-34.0); Mean Platelet Volume 10.8 fL (9.4-12.4); Monocytes # (auto) 0.67 K/uL (0.11-0.59); Monocytes % (auto) 8.1 %; Neutrophils # (auto) 5.45 K/uL (1.40-6.50); Neutrophils % (auto) 65.9 %; Platelet Count 251 K/uL (130-400); RDW Coefficient of Variation 13.7 % (11.5-14.5); RDW Standard Deviation 48.3 fL (36.4-46.3); Red Blood Count 3.79 M/uL (4.70-6.10); White Blood Count 8.26 K/ul (4.8-10.8)
[2023-04-21 06:58] LABS: INR 1.2 (0.9-1.1)
[2023-04-21] MEDS: POLYETHYLENE (MIRALAX) 17 GM PACK PO SCH (08:42)
[2023-04-21] MEDS: PANTOprazole 40 MG TAB PO SCH ×2 (08:42→20:02)
[2023-04-21] MEDS: FAMOTIDINE 20 MG TAB PO SCH ×2 (08:42→20:03)
[2023-04-21] MEDS: APIXABAN 5 MG TABLET PO SCH ×2 (08:42→20:02)
[2023-04-21] MEDS: oxyBUTYnin chloride 5 MG TAB PO SCH ×2 (08:42→20:02)
[2023-04-21] MEDS: GABAPENTIN 300 MG CAP PO SCH ×2 (08:43→20:02)
[2023-04-21] MEDS: MAGNESIUM OXIDE 400 MG TAB PO SCH (08:43)
[2023-04-21] MEDS: BACLOFEN 20 MG TAB PO SCH ×2 (08:43→20:03)
[2023-04-21] MEDS: SOD PHOSPHATE/SOD BIPHOSPHATE ENEMA 132 ML BTL PR SCH (10:06)
--- NOTE | 2023-04-21 13:07 | Electrocardiogram Report ---
Test Reason : Blood Pressure : / mmHG Vent. Rate : 108 BPM Atrial Rate : 108 BPM P-R Int : 156 ms QRS Dur : 066 ms QT Int : 340 ms P-R-T Axes : 056 080 049 degrees QTc Int : 455 ms Sinus tachycardia Nonspecific T wave abnormality Abnormal ECG When compared with ECG of 02-APR-2023 03:02, Sinus rhythm has replaced Atrial fibrillation ST no longer elevated in Lateral leads Confirmed by Dennis Moore ([id number]) on 04/21/2023 1:07:13 PM Referred By: REFERRED SELF Confirmed By:Dennis Moore
--- NOTE | 2023-04-21 13:51 | Neurology Consultation ---
Date of Consultation April 21, 2023 Assessment & Plan (1) Bladder spasms: Patient presents with worsening lower extremity spasms, specifically in the morning. Though he is on a high dose of baclofen he endorses no side effects. Would be reasonable to increase the nightly dose to 80mg as the spasms are worse in the morning. -- Baclofen 60mg qam and 80mg qhs -- Consider referral for LE botox which would likely be more effective than additional baclofen -- Please contact us with any further questions Telehealth Consultation Telehealth Information Telehealth Information: I performed this visit using a real-time telehealth connection between my location and the patients location ([facility]). After connecting through interactive tele-video, patient was identified by name and date of and/or wristband check.Patient (or authorized healthcare promotional representative) was informed that this was a telemedicine visit and it was being conducted confidentially over secure lines. My office door was closed and no one else was present in the room with me.Patient (or authorized healthcare promotional representative) provided consent to proceed with the visit, expressed an understanding of privacy and security of the telemedicine visit, and gave permission to have a hospital promotional representative in the room in order to assist with the visit and to conduct portions of the visit, as needed. I informed the patient (or authorized healthcare promotional representative) that I reviewed their record and presented the opportunity for them to ask any questions regarding the visit today. The patient agreed to participate. History of Present Illness Reason for Consultation: Spasms Requesting Physician: Dr. Corea Attending Physician: Cory Corea History of Present Illness Steffanie Maciel is a 58 yo M with a history of a C5 cord injury with resulting lower extremity spasiticty and neurogenic bladder. The patient presents with severe bladder spasms but asked to discuss an increase in his baclofen due to leg spasms that make it difficult for him to transfer. He has been taking 60mg BID for many years and feels he needs more. Denies any side effects, specifically fatigue, dizziness, nausea, vomiting, headache or vision changes. Allergies Allergy/AdvReac Type Severity Reaction Status Date / Time No Known Allergies Allergy Verified 03/28/23 16:36 Home Medications Medication Instructions Recorded Confirmed Type cholecalciferol (vitamin D3) 25 2,000 unit PO QAM 06/08/19 04/20/23 History mcg (1,000 unit) capsule (Vitamin D3) omeprazole 40 mg capsule,delayed 40 mg PO BID #180 caps 07/22/22 04/20/23 Rx release simvastatin 20 mg tablet 20 mg PO HS #90 tabs 10/10/22 04/20/23 Rx catheter #2 ea 11/01/22 04/06/23 Rx diaper,brief,adult,disposable #150 ea 11/01/22 04/06/23 Rx (Depend Underwear For Men Large-Extra Large) drainage bag (Curity Bedside #2 ea 11/01/22 04/06/23 Rx Drainage Bag) incontinence pad, liner, disp #60 ea 11/01/22 04/06/23 Rx (Total Care Underpads) urinary bag (Bardia Urinary #2 ea 11/01/22 04/06/23 Rx Drainage Bag) urinary bag accessories (Extension #2 ea 11/01/22 04/06/23 Rx Tubing w-Connector misc) latex gloves (Latex Gloves, Large) #250 ea 11/26/22 04/06/23 Rx famotidine 20 mg tablet (Pepcid) 20 mg PO BID #180 tabs 12/03/22 04/20/23 Rx apixaban 5 mg tablet (Eliquis) 5 mg PO BID #60 tabs 03/10/23 04/20/23 Rx prostate complete 1 tab PO HS 03/10/23 04/20/23 History magnesium oxide 500 mg tablet 500 mg PO QAM 03/28/23 04/20/23 History lidocaine 5 % topical patch 1 patch topical DAILY 04/01/23 04/20/23 History nystatin 100,000 unit/gram topical 1 applic topical BID 04/01/23 04/20/23 History powder oxycodone 5 mg tablet 5 mg PO TID PRN pain #14 tabs 04/14/23 04/20/23 Rx baclofen 20 mg tablet 60 mg PO BID #540 tabs 04/17/23 04/20/23 Rx gabapentin 300 mg capsule 300 mg PO Q12H #60 caps 04/17/23 04/20/23 Rx oxybutynin chloride 5 mg tablet 10 mg PO BID #360 tabs 04/17/23 04/20/23 Rx Patient History Medical History Acute hemorrhoid Bladder stones HX Deep vein thrombosis 1991 Fusion of spine LUMBAR ([facility] [place]) GERD (gastroesophageal reflux disease) [place] filter in place 1991 [place] History of DVT (deep vein thrombosis) History of gastrostomy tube placement Hyperlipidemia Indwelling urinary catheter present Insomnia Nephrolithiasis Neurogenic bladder 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 Paroxysmal atrial fibrillation Spinal cord injury JUNE 1992 Surgical History History of cystoscopy History of surgery "RT/LEFT HAMSTRING AND HIP RELEASES" History of tooth extraction History of tracheostomy Family History Father CHF (congestive heart failure) Mother Diabetes Brother Hypertension Dyslipidemia Diabetes Sister Psychiatric disorder Social History Smoking Status: Never smoker Tobacco Type: Cigarettes Age Started Using Tobacco: 15; packs per day: 1; Cigarettes Per Day: 12; Second Hand Exposure: No; Do You Dip or Chew Tobacco: No; Hx Alcohol Use: No Hx Substance Use: No Preferred Language: Hungarian Communication Ability: Effective Visual Impairment: No Limitations Hearing Ability: Normal Design And Sales Consultant Required: No Beliefs That Will Affect Care: None marital status: Single Current Living Situation: Significant Other Current Living Situation Comment: Sierra Bal, Significant Other current occupational status: disabled Other Information That Helps Us Care for You: No Feels Safe at Home: Yes Safety Concerns: Feels Safe At This Time Childhood Exposure to Second-Hand Smoke: Yes Diet: regular caffeine: Yes Dental Care, Regularly: No Physical Activity Frequency: Does not Exercise Physical Activity Frequency Comment: physically disabled Seatbelt Use: always Sunscreen Use: Yes Assistive Devices: Scooter/Electric Scooter, Slide Board and Wheelchair Assistive Devices Comment: shower chair, custom pressure ulcer prevention boots Review of Systems +leg spasms Physical Exam Neurological Examination: Mental Status: Awake and alert. Oriented to person, place, and time. Fluent. Comprehension intact. Affect appropriate. Cranial Nerves: II: finnegan grossly intact. III/IV/: Versions intact without nystagmus V: Facial sensation symmetric to light touch VII: Facial expression symmetric VIII: Hearing intact to voice IX/X: Palate elevates symmetrically XI: Shoulder shrug symmetric XII: Tongue midline Motor: Strength was symmetric and antigravity in the upper extremities with flexor contractures of the hands bilaterally. No LE movement. There were no abnormal movements. Reflexes: Unable to assess over telemedicine Results & Data Vital Signs (Past 12 Hours) Vital Signs Temp Pulse Pulse Resp BP Pulse Ox O2 Del Method 04/21/23 11:29 37.1 C 110 H 18 183/106 H 93 Room Air 04/21/23 07:36 36.8 C 76 18 149/90 H 96 Nasal Cannula 04/21/23 07:00 82 04/21/23 03:07 36.8 C 78 18 134/76 98 Nasal Cannula O2 Flow Rate 04/21/23 11:29 04/21/23 07:36 3 04/21/23 07:00 04/21/23 03:07 3 Laboratory Results Abnormal lab results 04/21/23 04/21/23 04/21/23 Range/Units 05:34 05:34 05:34 RBC 3.79 L (4.70-6.10) M/uL Hgb 12.6 L (14.0-18.0) g/dl Hct 36.0 L (42.0-52.0) % RDW Std Deviation 48.3 H (36.4-46.3) fL Long # (Auto) 0.67 H (0.11-0.59) K/uL PT 13.0 H (9.0-12.0) Seconds INR 1.2 H (0.9-1.1) Creatinine 0.55 L (0.6-1.4) mg/dl
--- NOTE | 2023-04-21 14:34 | Urology Consultation ---
Date of Consultation April 21, 2023 Assessment & Plan (1) Neurogenic bladder: (2) Bladder spasms: Plan 58 year old male admitted for persistent bladder spasms and lower extremity spasticity. Patient afebrile overnight. Today's labscreatinine 0.55, no leukocytosis. UA on arrival was negative for bacteria and nitrates, no urine culture pending. He completed previous antibiotic course on 04/18. CT abdomen pelvis reviewedno hydronephrosis, nonobstructing left renal calculus; bladder is decompressed around a Mcclure catheter. Mcclure patent and draining yellow urine. He continues to experience intermittent bladder spasms and lower extremity spasticity. Neurology consult reviewed - trial of increased Baclofen at for spasticity. For bladder spasms, Ditropan 5 mg can be increased from BID to TID scheduled. Continue with bowel regimen. Keep outpatient catheter changes and urology f/u as scheduled. will sign off. History of Present Illness Attending Physician: Cory Corea History of Present Illness 58-year-old male with past medical history significant for history of spinal cord injury at C5-C6 level with residual paresis, history of neurogenic bladder managed with chronic indwelling Mcclure catheter, bladder stones s/p cystolitholapaxy, history of DVT on anticoagulation with Eliquis who presents to the emergency department with complaints ofpersistent bladder spasms and difficulty caring for himself due to spasticity. He was hospitalized at [facility] from 04/01- 04/04 as well as 04/06-04/17 for urinary tract infection requiring IV an tibiotics. He is s/p cystolitholapaxy on 04/10/[address] Temple for numerous large bladder stones. He completed antibiotics on 04/18/2023. On arrival to ED, he was afebrile and hemodynamically stable. Lab work reviewed and showed WBC 11.83, hemoglobin 14.2, creatinine 0.63, lactate 1.6. Urinalysis showed trace protein, 4+ ketones, 1+ blood, urine mucus present; negative for bacteria and nitrates. CT abdomen and pelvis with IV contrast showed bladder is decompressed around a Mcclure catheter, punctate nonobstructing left renal calculus. No hydronephrosis. He was treated with IV fluids, acetaminophen, baclofen, oxybutynin and oxycodone in the emergency department. He was admitted to hospital medicine service. Urology consulted for bladder spasms. Chart review: Afebrile overnight. BPs have been variable since arrival. Today's labscreatinine 0.55, WBC 8.26, hemoglobin 12.6. Last Mcclure exchange 04/15. Patient seen and examined at bedside this afternoon. He is awake and resting in bed. No acute complaints at present. Subjectively feeling better since arrival. He reports intermittent bladder spasms as well as lower extremity spasticity especially with position transfers. Mcclure patent and draining yellow urine. Reports no issues with catheter. Denies nausea, vomiting, fever, or chills. He reports using a fleets enema daily or every other day for bowel regimen. Allergies Allergy/AdvReac Type Severity Reaction Status Date / Time No Known Allergies Allergy Verified 03/28/23 16:36 Home Medications Medication Instructions Recorded Confirmed Type cholecalciferol (vitamin D3) 25 2,000 unit PO QAM 06/08/19 04/20/23 History mcg (1,000 unit) capsule (Vitamin D3) omeprazole 40 mg capsule,delayed 40 mg PO BID #180 caps 07/22/22 04/20/23 Rx release simvastatin 20 mg tablet 20 mg PO HS #90 tabs 10/10/22 04/20/23 Rx catheter #2 ea 11/01/22 04/06/23 Rx diaper,brief,adult,disposable #150 ea 11/01/22 04/06/23 Rx (Depend Underwear For Men Large-Extra Large) drainage bag (Curity Bedside #2 ea 11/01/22 04/06/23 Rx Drainage Bag) incontinence pad, liner, disp #60 ea 11/01/22 04/06/23 Rx (Total Care Underpads) urinary bag (Bardia Urinary #2 ea 11/01/22 04/06/23 Rx Drainage Bag) urinary bag accessories (Extension #2 ea 11/01/22 04/06/23 Rx Tubing w-Connector misc) latex gloves (Latex Gloves, Large) #250 ea 11/26/22 04/06/23 Rx famotidine 20 mg tablet (Pepcid) 20 mg PO BID #180 tabs 12/03/22 04/20/23 Rx apixaban 5 mg tablet (Eliquis) 5 mg PO BID #60 tabs 03/10/23 04/20/23 Rx prostate complete 1 tab PO HS 03/10/23 04/20/23 History magnesium oxide 500 mg tablet 500 mg PO QAM 03/28/23 04/20/23 History lidocaine 5 % topical patch 1 patch topical DAILY 04/01/23 04/20/23 History nystatin 100,000 unit/gram topical 1 applic topical BID 04/01/23 04/20/23 History powder oxycodone 5 mg tablet 5 mg PO TID PRN pain #14 tabs 04/14/23 04/20/23 Rx baclofen 20 mg tablet 60 mg PO BID #540 tabs 04/17/23 04/20/23 Rx gabapentin 300 mg capsule 300 mg PO Q12H #60 caps 04/17/23 04/20/23 Rx oxybutynin chloride 5 mg tablet 10 mg PO BID #360 tabs 04/17/23 04/20/23 Rx Patient History Medical History Acute hemorrhoid Bladder stones HX Deep vein thrombosis 1991 Fusion of spine LUMBAR ([facility]) GERD (gastroesophageal reflux disease) [place] filter in place 1991 [place] History of DVT (deep vein thrombosis) History of gastrostomy tube placement Hyperlipidemia Indwelling urinary catheter present Insomnia Nephrolithiasis Neurogenic bladder 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 Paroxysmal atrial fibrillation Spinal cord injury JUNE 1992 Surgical History History of cystoscopy History of surgery "RT/LEFT HAMSTRING AND HIP RELEASES" History of tooth extraction History of tracheostomy Family History Father CHF (congestive heart failure) Mother Diabetes Brother Hypertension Dyslipidemia Diabetes Sister Psychiatric disorder Social History Smoking Status: Never smoker Tobacco Type: Cigarettes Age Started Using Tobacco: 15; packs per day: 1; Cigarettes Per Day: 12; Second Hand Exposure: No; Do You Dip or Chew Tobacco: No; Hx Alcohol Use: No Hx Substance Use: No Preferred Language: Tristanian Communication Ability: Effective Visual Impairment: No Limitations Hearing Ability: Normal Space Buyer Required: No Beliefs That Will Affect Care: None marital status: Single Current Living Situation: Significant Other Current Living Situation Comment: Sierra Bal, Significant Other current occupational status: disabled Other Information That Helps Us Care for You: No Feels Safe at Home: Yes Safety Concerns: Feels Safe At This Time Childhood Exposure to Second-Hand Smoke: Yes Diet: regular caffeine: Yes Dental Care, Regularly: No Physical Activity Frequency: Does not Exercise Physical Activity Frequency Comment: physically disabled Seatbelt Use: always Sunscreen Use: Yes Assistive Devices: Scooter/Electric Scooter, Slide Board and Wheelchair Assistive Devices Comment: shower chair, custom pressure ulcer prevention boots Review of Systems Review of Systems: All systems reviewed & are unremarkable except as noted in HPI & below Physical Exam Constitutional: no acute distress Eyes: no scleral abnormality Neck: trachea midline Respiratory: no respiratory distress and no labored breathing Gastrointestinal (Abdomen): Inspection/Auscultation: abdomen normal to inspection; abdomen not distended Musculoskeletal: Head/Neck/Chest: normocephalic Neurologic: awake Paralysis of the lower extremities secondary to his paraplegia Psychiatric: A+Ox3, euthymic affect Genitourinary: Mcclure patent and draining clear yellow urine Results & Data Vital Signs (Past 12 Hours) Vital Signs Temp Pulse Pulse Resp BP Pulse Ox O2 Del Method 04/21/23 11:29 37.1 C 110 H 18 183/106 H 93 Room Air 04/21/23 07:36 36.8 C 76 18 149/90 H 96 Nasal Cannula 04/21/23 07:00 82 04/21/23 03:07 36.8 C 78 18 134/76 98 Nasal Cannula O2 Flow Rate 04/21/23 11:29 04/21/23 07:36 3 04/21/23 07:00 04/21/23 03:07 3 PG Care Time/CCT Total # of Minutes Spent Total Time Spent with Patient: Total time spent is greater than 50% in coordination of care (as documented) at patient's floor/unit and/or counseling patient: Coding Level of Care Code 54878 IN/OBS CONSULT LVL 3,45M Diagnoses Neurogenic bladder N31.9 Bladder spasms N32.89
[2023-04-21] MEDS: METHOCARBAMOL 500 MG TABLET PO SCH (17:59)
[2023-04-21] MEDS: SIMVASTATIN 20 MG TAB PO SCH (20:02)
--- NOTE | 2023-04-21 23:20 | Hospitalist Progress Note ---
Date of Service April 21, 2023 Assessment & Plan (1) Bladder spasms: Plan: -Admit to med/tele -Currently stable -Patient presented back to the ED today after being discharged home from [facility] on 04/17 due to catheter associated UTI and bladder stones causing severe pain >Completed course of cefepime for UTI, no signs of UTI today >Underwent Laser Cystolitholapaxy on 04/[address] Temple during his last admission, 20+ bladder stones were removed at that time -CT of the abd/pelvis w/IV con today are without acute changes, love appears to be working properly -Patient states he cannot safely care for himself at home with the uncontrolled pain at this time -Will give 1gm PO ativan, home dose of 5 mg PO Oxycodone, and home dose of BID PO baclofen now -Will do a trial of prn Pyridium on top of his current home regimen of antispasmodics and analgesics to see if it provides additional relief -Explained to the patient that we need to avoid IV pain medications as we need to find an adequate PO regimen for discharge -Continue home Oxybutynin, 5 mg PO oxycodone TID prn pain (5+) -If no significant improvement overnight would consult Urology for re-evalaution -Continue home Eliquis for DVT PPX -AM CBC, CMP, PT/INR appreciate input from neurology: added methocarbamol (2) Neurogenic bladder: Plan: -Chronic love dependent -Continue daily love care (3) Paraplegia: Plan: -Continue baclofen for spasms -Continue gabapentin for neuropathic pain -PT/OT consults placed (4) Paroxysmal atrial fibrillation: Plan: -Will obtain ECG on admission to evaluate his tachycardia, appears to be due to his anxiety and pain at this time -Continue Eliquis -Monitor on tele for tachycardia (5) GERD (gastroesophageal reflux disease): Plan: -Continue PPI Plan The patient was seen with and discussed with Dr. Bhagat at the time of the admission -Heart healthy diet Admission and Anticipated Discharge Date Admission Date: April 21, 2023 Subjective Patient reports continuing to have spasms. Review of Systems Review of Systems: All systems reviewed & are unremarkable except as noted in HPI & below Physical Exam Physical Exam: General:In distress due to anxiety and bladder spasms, stated age, ma lnourished and chronically ill appearing but non-toxic HEENT:Normocephalic, atraumatic, no scleral icterus, pupils around round, symmetrical, and reactive to light, moist mucus membranes, trachea midline, no thyromegaly Chest/Pulm:No respiratory distress, symmetrical chest expansion, clear breath sounds throughout Cardiac:tachycardic rate, regular rhythm, no murmurs noted Abdomen:Negative for ascites and bruising, normoactive bowel sounds, soft, tender to palpation in the left upper, left lower abdomen, and suprapubic region :Love cath is in place and draining clear, yellow urine Musculoskeletal:Baseline spasticity of the upper and lower extremities Extremities:Radial, dorsalis pedis, and posterior tibial pulses are intact and symmetrical, no edema noted in the BL LE's Skin:Warm, dry, no rashes , lesions, or scars noted Neuro:Alert and oriented to person, place, month, year, and president, no focal defects, baseline spasticity of the upper and lower extremities Psych:Anxious but able to be redirected, cooperative during the exam Results & Data Results & Data Vital Signs (Past 12 Hours) Vital Signs Temp Pulse Resp BP Pulse Ox O2 Del Method 04/21/23 19:28 37.4 C 94 H 22 147/85 H 94 Room Air 04/21/23 16:00 36.9 C 89 18 104/92 93 Room Air 04/21/23 11:29 37.1 C 110 H 18 183/106 H 93 Room Air PG Care Time/CCT Total # of Minutes Spent Total Time Spent with Patient: Total time spent is greater than 50% in coordination of care (as documented) at patient's floor/unit and/or counseling patient: Coding Level of Care Code 44091 SUB INP/OBS CARE 2/35MIN Diagnoses Bladder spasms N32.89 Neurogenic bladder N31.9 Paraplegia G82.20 Paroxysmal atrial fibrillation I48.0 GERD (gastroesophageal reflux disease) K21.9
[2023-04-22 06:43] LABS: Basophils # (auto) 0.02 K/uL (0-0.2); Basophils % (auto) 0.3 %; Eosinophils # (auto) 0.15 K/uL (0-0.50); Eosinophils % (auto) 1.9 %; Hematocrit (blood only) 38.1 % (42.0-52.0); Hemoglobin 13.3 g/dl (14.0-18.0); Immature Granulocytes # (auto) 0.02 K/uL (0.01-0.20); Immature Granulocytes % (auto) 0.3 %; Lymphocytes # (auto) 2.36 K/uL (1.2-3.4); Lymphocytes % (auto) 30.2 %; Mean Corpuscular Hgb Conc 34.9 g/dL (32.0-36.0); Mean Corpuscular Volume 94.5 fL (80.0-100.0); Mean Platelet Volume 10.7 fL (9.4-12.4); Neutrophils # (auto) 4.57 K/uL (1.40-6.50); Neutrophils % (auto) 58.3 %; Platelet Count 250 K/uL (130-400); RDW Coefficient of Variation 13.6 % (11.5-14.5); RDW Standard Deviation 47.5 fL (36.4-46.3); Red Blood Count 4.03 M/uL (4.70-6.10); White Blood Count 7.82 K/ul (4.8-10.8)
[2023-04-22 06:54] LABS: BUN Creatinine Ratio 10.5 (10-20); C Reactive Protein 1.74 mg/dl (0-0.5); Creatinine Clr Calc Pharmacy 136.3 ml/min; Est GFR (African American) 129.4 ml/min; Est GFR (Non-African American) 111.6 ml/min; Magnesium 1.8 mg/dl (1.7-2.4)
[2023-04-22 07:07] LABS: INR 1.1 (0.9-1.1); Prothrombin Time 12.3 Seconds (9.0-12.0)
[2023-04-22] MEDS: PANTOprazole 40 MG TAB PO SCH ×2 (08:20→20:23)
[2023-04-22] MEDS: MAGNESIUM OXIDE 400 MG TAB PO SCH (08:20)
[2023-04-22] MEDS: APIXABAN 5 MG TABLET PO SCH ×2 (08:20→20:23)
[2023-04-22] MEDS: BACLOFEN 20 MG TAB PO SCH ×2 (08:20→20:21)
[2023-04-22] MEDS: FAMOTIDINE 20 MG TAB PO SCH ×2 (08:20→20:24)
[2023-04-22] MEDS: oxyBUTYnin chloride 5 MG TAB PO SCH ×2 (08:20→20:23)
[2023-04-22] MEDS: GABAPENTIN 300 MG CAP PO SCH ×2 (08:20→20:22)
[2023-04-22] MEDS: POLYETHYLENE (MIRALAX) 17 GM PACK PO SCH (08:21)
[2023-04-22] MEDS: METHOCARBAMOL 500 MG TABLET PO SCH ×2 (08:21→20:24)
[2023-04-22] MEDS ORDERED: SOD PHOSPHATE/SOD BIPHOSPHATE ENEMA 132 ML BTL PR STA (08:29)
[2023-04-22] MEDS: SIMVASTATIN 20 MG TAB PO SCH (20:23)
--- NOTE | 2023-04-22 23:44 | Hospitalist Progress Note ---
Date of Service April 22, 2023 Assessment & Plan (1) Bladder spasms: Plan: -Admit to med/tele -Currently stable -Patient presented back to the ED today after being discharged home from [facility] on 04/17 due to catheter associated UTI and bladder stones causing severe pain >Completed course of cefepime for UTI, no signs of UTI today >Underwent Laser Cystolitholapaxy on 04/[address] Temple during his last admission, 20+ bladder stones were removed at that time -CT of the abd/pelvis w/IV con today are without acute changes, love appears to be working properly -Patient states he cannot safely care for himself at home with the uncontrolled pain at this time -Will give 1gm PO ativan, home dose of 5 mg PO Oxycodone, and home dose of BID PO baclofen now -Will do a trial of prn Pyridium on top of his current home regimen of antispasmodics and analgesics to see if it provides additional relief -Explained to the patient that we need to avoid IV pain medications as we need to find an adequate PO regimen for discharge -Continue home Oxybutynin, 5 mg PO oxycodone TID prn pain (5+) -If no significant improvement overnight would consult Urology for re-evalaution -Continue home Eliquis for DVT PPX -AM CBC, CMP, PT/INR appreciate input from neurology: added methocarbamol will also increase baclofen. (2) Neurogenic bladder: Plan: -Chronic love dependent -Continue daily love care (3) Paraplegia: Plan: -Continue baclofen for spasms -Continue gabapentin for neuropathic pain -PT/OT consults placed (4) Paroxysmal atrial fibrillation: Plan: -Will obtain ECG on admission to evaluate his tachycardia, appears to be due to his anxiety and pain at this time -Continue Eliquis -Monitor on tele for tachycardia (5) GERD (gastroesophageal reflux disease): Plan: -Continue PPI Plan The patient was seen with and discussed with Dr. Bhagat at the time of the admission -Heart healthy diet Admission and Anticipated Discharge Date Admission Date: April 21, 2023 Subjective Patient reports his spasms have not improved. Patient is agreeable to encompass. Review of Systems Review of Systems: All systems reviewed & are unremarkable except as noted in HPI & below Physical Exam Physical Exam: General:Appears calm, stated age, malnourished and chronically ill appearing but non-toxic HEENT:Normocephalic, atraumatic, no scleral icterus, pupils around round, symmetrical, and reactive to light, moist mucus membranes, trachea midline, no thyromegaly Chest/Pulm:No respiratory distress, symmetrical chest expansion, clear breath sounds throughout Cardiac:tachycardic rate, regular rhythm, no murmurs noted Abdomen:Negative for ascites and bruising, normoactive bowel sounds, soft, tender to palpation in the left upper, left lower abdomen, and suprapubic region :Love cath is in place and draining clear, yellow urine Musculoskeletal:Baseline spasticity of the upper and lower extremities Extremities:Radial, dorsalis pedis, and posterior tibial pulses are intact and symmetrical, no edema noted in the BL LE's Skin:Warm, dry, no rashes , lesions, or scars noted Neuro:Alert and oriented to person, place, month, year, and president, no focal defects, baseline spasticity of the upper and lower extremities Results & Data Results & Data Vital Signs (Past 12 Hours) Vital Signs Temp Pulse Resp BP Pulse Ox O2 Del Method 04/22/23 23:10 36.6 C 62 16 92/60 L 96 Room Air 04/22/23 19:00 36.7 C 71 20 101/56 L 95 Room Air PG Care Time/CCT Total # of Minutes Spent Total Time Spent with Patient: Total time spent is greater than 50% in coordination of care (as documented) at patient's floor/unit and/or counseling patient: Coding Level of Care Code 17916 SUB INP/OBS CARE 2/35MIN Diagnoses Bladder spasms N32.89 Neurogenic bladder N31.9 Paraplegia G82.20 Paroxysmal atrial fibrillation I48.0 GERD (gastroesophageal reflux disease) K21.9
[2023-04-23] MEDS ORDERED: SODIUM CHLORIDE 0.9% 1000ML 1,000 ML IV ONE ×2 (01:18→02:29)
[2023-04-23 06:33] LABS: Basophils # (auto) 0.01 K/uL (0-0.2); Basophils % (auto) 0.2 %; Eosinophils # (auto) 0.15 K/uL (0-0.50); Eosinophils % (auto) 2.4 %; Hemoglobin 11.9 g/dl (14.0-18.0); Immature Granulocytes # (auto) 0.02 K/uL (0.01-0.20); Immature Granulocytes % (auto) 0.3 %; Lymphocytes % (auto) 24.2 %; Mean Corpuscular Hemoglobin 33.5 pg (25.0-34.0); Mean Corpuscular Volume 95.8 fL (80.0-100.0); Mean Platelet Volume 10.4 fL (9.4-12.4); Monocytes # (auto) 0.53 K/uL (0.11-0.59); Monocytes % (auto) 8.5 %; Neutrophils % (auto) 64.4 %; Platelet Count 225 K/uL (130-400); RDW Coefficient of Variation 13.7 % (11.5-14.5); RDW Standard Deviation 47.8 fL (36.4-46.3); Red Blood Count 3.55 M/uL (4.70-6.10); White Blood Count 6.21 K/ul (4.8-10.8)
[2023-04-23 07:01] LABS: BUN Creatinine Ratio 12.3 (10-20); Calcium 8.4 mg/dl (8.6-10.3); Creatinine Clr Calc Pharmacy 135.7 ml/min; Est GFR (African American) 129.4 ml/min; Est GFR (Non-African American) 111.6 ml/min; Magnesium 1.7 mg/dl (1.7-2.4); Potassium 3.5 mmol/L (3.5-5.1)
[2023-04-23 07:18] LABS: INR 1.2 (0.9-1.1); Prothrombin Time 12.5 Seconds (9.0-12.0)
[2023-04-23] MEDS: oxyBUTYnin chloride 5 MG TAB PO SCH ×2 (09:09→20:20)
[2023-04-23] MEDS: METHOCARBAMOL 500 MG TABLET PO SCH ×2 (09:10→20:19)
[2023-04-23] MEDS: BACLOFEN 20 MG TAB PO SCH ×2 (09:10→20:18)
[2023-04-23] MEDS: APIXABAN 5 MG TABLET PO SCH ×2 (09:10→20:20)
[2023-04-23] MEDS: GABAPENTIN 300 MG CAP PO SCH ×2 (09:10→20:17)
[2023-04-23] MEDS: PANTOprazole 40 MG TAB PO SCH ×2 (09:10→20:20)
[2023-04-23] MEDS: FAMOTIDINE 20 MG TAB PO SCH ×2 (09:10→20:17)
[2023-04-23] MEDS: POLYETHYLENE (MIRALAX) 17 GM PACK PO SCH (09:10)
[2023-04-23] MEDS: MAGNESIUM OXIDE 400 MG TAB PO SCH (09:10)
[2023-04-23] MEDS: SOD PHOSPHATE/SOD BIPHOSPHATE ENEMA 132 ML BTL PR SCH (09:11)
[2023-04-23] MEDS: SIMVASTATIN 20 MG TAB PO SCH (20:17)
--- NOTE | 2023-04-23 22:44 | Hospitalist Progress Note ---
Date of Service April 23, 2023 Assessment & Plan (1) Bladder spasms: Plan: -Admit to med/tele -Currently stable -Patient presented back to the ED today after being discharged home from [facility] on 04/17 due to catheter associated UTI and bladder stones causing severe pain >Completed course of cefepime for UTI, no signs of UTI today >Underwent Laser Cystolitholapaxy on 04/[address] Temple during his last admission, 20+ bladder stones were removed at that time -CT of the abd/pelvis w/IV con today are without acute changes, love appears to be working properly -Patient states he cannot safely care for himself at home with the uncontrolled pain at this time -Will give 1gm PO ativan, home dose of 5 mg PO Oxycodone, and home dose of BID PO baclofen now -Will do a trial of prn Pyridium on top of his current home regimen of antispasmodics and analgesics to see if it provides additional relief -Explained to the patient that we need to avoid IV pain medications as we need to find an adequate PO regimen for discharge -Continue home Oxybutynin, 5 mg PO oxycodone TID prn pain (5+) -If no significant improvement overnight would consult Urology for re-evalaution -Continue home Eliquis for DVT PPX -AM CBC, CMP, PT/INR appreciate input from neurology: added methocarbamol will also increase baclofen. Spasms have improved on 04/23 awaiting placement. (2) Neurogenic bladder: Plan: -Chronic love dependent -Continue daily love care (3) Paraplegia: Plan: -Continue baclofen for spasms -Continue gabapentin for neuropathic pain -PT/OT consults placed (4) Paroxysmal atrial fibrillation: Plan: -Continue Eliquis -Monitor on tele for tachycardia (5) GERD (gastroesophageal reflux disease): Plan: -Continue PPI Plan -Heart healthy diet Admission and Anticipated Discharge Date Admission Date: April 21, 2023 Subjective Patienr reports spasms have improved. Patient reports he would like to still go to rehab. Review of Systems 2 Review of Systems: All systems reviewed & are unremarkable except as noted in HPI & below Physical Exam Physical Exam: Patient is lying comofrtably in bed. NAD. Heart: RRR, Abd: soft, NT, mildly distended Results & Data Results & Data Vital Signs (Past 12 Hours) Vital Signs Temp Pulse Pulse Resp BP BP Pulse Ox 04/23/23 19:19 36.6 C 65 18 107/63 95 04/23/23 16:38 59 L 04/23/23 15:38 36.5 C 52 L 20 93/60 L 94 04/23/23 12:45 65 18 104/61 95 04/23/23 10:50 36.5 C 61 18 86/63 L 95 O2 Del Method 04/23/23 19:19 Room Air 04/23/23 16:38 04/23/23 15:38 Room Air 04/23/23 12:45 04/23/23 10:50 Room Air PG Care Time/CCT Total # of Minutes Spent Total Time Spent with Patient: Total time spent is greater than 50% in coordination of care (as documented) at patient's floor/unit and/or counseling patient: Coding Level of Care Code 62803 SUB INP/OBS CARE 2/35MIN Diagnoses Bladder spasms N32.89 Neurogenic bladder N31.9 Paraplegia G82.20 Paroxysmal atrial fibrillation I48.0 GERD (gastroesophageal reflux disease) K21.9
[2023-04-24] MEDS: APIXABAN 5 MG TABLET PO SCH ×2 (09:10→20:17)
[2023-04-24] MEDS: FAMOTIDINE 20 MG TAB PO SCH ×2 (09:10→20:16)
[2023-04-24] MEDS: GABAPENTIN 300 MG CAP PO SCH ×2 (09:10→20:18)
[2023-04-24] MEDS: PANTOprazole 40 MG TAB PO SCH ×2 (09:10→20:17)
[2023-04-24] MEDS: oxyBUTYnin chloride 5 MG TAB PO SCH ×2 (09:10→20:17)
[2023-04-24] MEDS: METHOCARBAMOL 500 MG TABLET PO SCH ×2 (09:10→20:16)
[2023-04-24] MEDS: MAGNESIUM OXIDE 400 MG TAB PO SCH (09:11)
[2023-04-24] MEDS: BACLOFEN 20 MG TAB PO SCH ×2 (09:11→20:16)
[2023-04-24] MEDS: POLYETHYLENE (MIRALAX) 17 GM PACK PO SCH (09:12)
--- NOTE | 2023-04-24 11:53 | Hospitalist Progress Note ---
Date of Service April 24, 2023 Assessment & Plan (1) Bladder spasms: Plan: -Patient presented back to the ED after being discharged home from [facility] on 04/17 due to catheter associated UTI and bladder stones causing severe pain >Completed course of cefepime for UTI, no signs of UTI now >Underwent Laser Cystolitholapaxy on 04/[address] Temple during his last admission, 20+ bladder stones were removed at that time -CT of the abd/pelvis w/IV con this admission are without acute changes, love appears to be working properly -Patient states he cannot safely care for himself at home with the uncontrolled pain at this time -continue home dose of 5 mg PO Oxycodone, and have since increased baclofen to 60mg in AM and 80mg qPM, added Robaxin 500mg po bid--> improved -continue prn Pyridium -Continue home Oxybutynin, 5 mg PO oxycodone TID prn pain (5+) (2) Neurogenic bladder: Plan: -Chronic love dependent -Love exchanged on 04/18/ of admission -Continue daily love care (3) Paraplegia: Plan: -Continue baclofen and now robaxin for spasms -Continue gabapentin for neuropathic pain -PT/OT consults placed -needs rehab to get transfer ability back (4) Paroxysmal atrial fibrillation: Plan: Remains in NSR here -Continue Eliquis -Monitor on tele (5) GERD (gastroesophageal reflux disease): Plan: -Continue PPI and Pepcid (6) Autonomic dysreflexia: Plan: had hypotension on evening of 04/22 while Love was malfunctioning-frequent for him due to autonomic dysreflexia improved with flushing of Love and IVF bolus monitor for hypotension (7) Constipation: Plan: chronic, related to paraplegia continue daily Miralax, Fleets enemas q2 days Plan DVT proph-Eliquis Dispo-medically stable for discharge but awaiting rehab placement. Admission and Anticipated Discharge Date Admission Date: April 21, 2023 Subjective Pt tearful about not being able to go to rehab today due ot bed availability. Otherwise, is having spasms in legs an would like to be positioned with knees flexed for bed tonight. No further bladder or abd spasms. Is moving bowels regularly. Tele with NSR, normal rates Physical Exam Constitutional: WD/WN, vitals as above Respiratory: normal respiratory effort, lungs clear to auscultation Cardiovascular: RRR, no murmur, no edema Gastrointestinal (Abdomen): Inspection/Auscultation: abdomen normal to inspection and + abdomen distended (mild-moderate but soft) Percussion/Palpation: abdomen soft; abdomen nontender Skin: no rashes, warm and dry Neurologic: + focal motor deficit (BLE weakness) Genitourinary: Love in place with pale yellow urine Results & Data Results & Data Vital Signs (Past 12 Hours) Vital Signs Temp Pulse Resp BP BP Pulse Ox O2 Del Method 04/24/23 11:12 36.3 C L 79 18 111/73 94 Room Air 04/24/23 07:33 36.6 C 63 18 117/72 93 Room Air 04/24/23 04:07 36.5 C 66 16 124/78 96 Room Air Laboratory Results no labs PG Care Time/CCT Total # of Minutes Spent Total Time Spent with Patient: Total time spent is greater than 50% in coordination of care (as documented) at patient's floor/unit and/or counseling patient: Coding Level of Care Code 22200 SUB INP/OBS CARE 2/35MIN Diagnoses Bladder spasms N32.89 Neurogenic bladder N31.9 Paraplegia G82.20 Paroxysmal atrial fibrillation I48.0 GERD (gastroesophageal reflux disease) K21.9 Autonomic dysreflexia G90.4 Constipation K59.00
[2023-04-24] MEDS: SIMVASTATIN 20 MG TAB PO SCH (20:16)
[2023-04-25 06:03] LABS: Basophils # (auto) 0.03 K/uL (0-0.2); Basophils % (auto) 0.4 %; Eosinophils # (auto) 0.22 K/uL (0-0.50); Eosinophils % (auto) 3.1 %; Hemoglobin 12.2 g/dl (14.0-18.0); Immature Granulocytes # (auto) 0.02 K/uL (0.01-0.20); Immature Granulocytes % (auto) 0.3 %; Lymphocytes # (auto) 1.76 K/uL (1.2-3.4); Lymphocytes % (auto) 24.5 %; Mean Corpuscular Hemoglobin 32.9 pg (25.0-34.0); Mean Corpuscular Hgb Conc 34.9 g/dL (32.0-36.0); Mean Corpuscular Volume 94.3 fL (80.0-100.0); Mean Platelet Volume 10.4 fL (9.4-12.4); Neutrophils # (auto) 4.64 K/uL (1.40-6.50); Neutrophils % (auto) 64.7 %; Platelet Count 247 K/uL (130-400); RDW Coefficient of Variation 13.7 % (11.5-14.5); RDW Standard Deviation 47.5 fL (36.4-46.3); Red Blood Count 3.71 M/uL (4.70-6.10); White Blood Count 7.17 K/ul (4.8-10.8)
[2023-04-25 06:19] LABS: Calcium 8.4 mg/dl (8.6-10.3); Creatinine Clr Calc Pharmacy 155.7 ml/min; Est GFR (African American) 136.5 ml/min; Est GFR (Non-African American) 117.8 ml/min; Magnesium 1.7 mg/dl (1.7-2.4); Potassium 3.7 mmol/L (3.5-5.1)
[2023-04-25] MEDS: FAMOTIDINE 20 MG TAB PO SCH (08:21)
[2023-04-25] MEDS: BACLOFEN 20 MG TAB PO SCH (08:21)
[2023-04-25] MEDS: MAGNESIUM OXIDE 400 MG TAB PO SCH (08:21)
[2023-04-25] MEDS: METHOCARBAMOL 500 MG TABLET PO SCH (08:21)
[2023-04-25] MEDS: PANTOprazole 40 MG TAB PO SCH (08:22)
[2023-04-25] MEDS: POLYETHYLENE (MIRALAX) 17 GM PACK PO SCH ×2 (08:22→08:26)
[2023-04-25] MEDS: oxyBUTYnin chloride 5 MG TAB PO SCH (08:22)
[2023-04-25] MEDS: APIXABAN 5 MG TABLET PO SCH (08:22)
[2023-04-25] MEDS: GABAPENTIN 300 MG CAP PO SCH (08:22)
[2023-04-25] MEDS: SOD PHOSPHATE/SOD BIPHOSPHATE ENEMA 132 ML BTL PR SCH ×2 (08:23→10:23)
--- NOTE | 2023-04-25 10:23 | Discharge Summary ---
Discharge Summary Date of Service April 25, 2023 Admission HPI Per Admitting Provider 58-year-old male with past medical history significant for history of spinal cord injury at C5-C6 level with residual paresis, history of neurogenic bladder with chronic indwelling Fuetnes catheter, GERD, hyperlipidemia, history of DVT on anticoagulation with Eliquis and bladder stones S/P cystolitholopaxy and bladder stone removal with urology on 04/10/23 who presented to the [facility] ED onb 04/20 due to uncontrolled bladder spasm pain. In the ED the patient was tachycardic with HR in the 120's but otherwise stable. Labs were significant for a leukocytosis of 11 with left shift of 8 and UA not suggestive of acute infection. Chest xray was negative for acute findings. CT of the abd/pelvis w/IV con was read as "1. No acute infectious or inflammatory findings are identified in the abdomen or pelvis. 2. An IVC filter is in place. 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 3. Foci of cortical scarring are again seen throughout the left kidney. 4. The bladder is decompressed around a Fuentes catheter and could not be evaluated. 5. Hepatic steatosis. 6. Punctate nonobstructing left renal calculus. 7. Additional findings as above.". The patient was initially given 1L NSS and 1gm IV tylenol with plans to discharged home as he has FU later this week in the Urology Clinic. While the patient was waiting for transport he began to have a panic attack saying that he could not adequately care for himself at home at this time and his fiance is unable to care adequately for him. At the time of the exam the patient was lying in bed, anxious appearing, and tachypneic. He states that his chronic bladder spasm pain is severe and he won't be able to transfer himself safely at home right now. We explained that his workup today has been negative and started speaking with him about plans for discharge if he were to be admitted. When speaking about the possible need for rehab/SNF he denied wanting to be placed. However, after further discussions he is in agreement with being seen by PT/OT and speaking with care managers regarding short-term placement if needed. He denies recent fevers, chills, chest pain, SOB, new abd pain, nausea, vomiting, diarrhea, and recent falls/trauma. Please refer to Dr. Bhagat's attestation for any changes to the treatment plan Principal Dx & Hospital Course #1 = Principal Diagnosis (1) Bladder spasms: -Patient presented back to the ED after being discharged home from [facility] on 04/17 due to catheter associated UTI and bladder stones causing severe pain >Completed course of cefepime for previous UTI, no signs of UTI now, repeat Ur cx negative >Underwent Laser Cystolitholapaxy on 04/[address] Temple during his last admission, 20+ bladder stones were removed at that time -CT of the abd/pelvis w/IV con this admission are without acute changes, fuentes appears to be working properly and was last exchanged on 04/15/23 -Patient states he cannot safely care for himself at home with the uncontrolled pain at this time -continue home dose of 5 mg PO Oxycodone, and have since increased baclofen to 60mg in AM and 80mg qPM, added Robaxin 500mg po bid--> improved -Continue home Oxybutynin, 5 mg PO oxycodone TID prn pain (5+) (2) Neurogenic bladder: -Chronic fuentes dependent -Fuentes exchanged on 04/15/23 -Continue daily fuentes care (3) Paraplegia: -Continue baclofen and now robaxin for spasms -Continue gabapentin for neuropathic pain -PT/OT consults placed -needs rehab to get transfer ability back (4) Paroxysmal atrial fibrillation: Remains in NSR here -Continue Eliquis (5) GERD (gastroesophageal reflux disease): -Continue PPI and Pepcid (6) Autonomic dysreflexia: had hypotension on evening of 04/22 while Fuentes was malfunctioning-frequent for him due to autonomic dysreflexia improved with flushing of Fuentes and IVF bolus has had this previously with constipation as well monitor for hypotension (7) Constipation: chronic, related to paraplegia continue daily Miralax, Fleets enemas q2 days Plan DVT proph-Eliquis Dispo-medically stable for discharge to rehab placement. Discharge Exam Constitutional WD/WN, vitals as above Respiratory normal respiratory effort, lungs clear to auscultation Cardiovascular RRR, no murmur, no edema Gastrointestinal (Abdomen) Inspection/Auscultation: abdomen normal to inspection and + abdomen distended (mild-moderate but soft) Percussion/Palpation: abdomen soft; abdomen nontender Skin no rashes, warm and dry Neurologic + focal motor deficit (BLE weakness) Updated Medication List Medication Instructions Recorded Confirmed Type cholecalciferol (vitamin D3) 25 2,000 unit PO QAM 06/08/19 04/20/23 History mcg (1,000 unit) capsule (Vitamin D3) omeprazole 40 mg capsule,delayed 40 mg PO BID #180 caps 07/22/22 04/20/23 Rx release simvastatin 20 mg tablet 20 mg PO HS #90 tabs 10/10/22 04/20/23 Rx catheter #2 ea 11/01/22 04/06/23 Rx diaper,brief,adult,disposable #150 ea 11/01/22 04/06/23 Rx (Depend Underwear For Men Large-Extra Large) drainage bag (Curity Bedside #2 ea 11/01/22 04/06/23 Rx Drainage Bag) incontinence pad, liner, disp #60 ea 11/01/22 04/06/23 Rx (Total Care Underpads) urinary bag (Bardia Urinary #2 ea 11/01/22 04/06/23 Rx Drainage Bag) urinary bag accessories (Extension #2 ea 11/01/22 04/06/23 Rx Tubing w-Connector [facility]) latex gloves (Latex Gloves, Large) #250 ea 11/26/22 04/06/23 Rx famotidine 20 mg tablet (Pepcid) 20 mg PO BID #180 tabs 12/03/22 04/20/23 Rx apixaban 5 mg tablet (Eliquis) 5 mg PO BID #60 tabs 03/10/23 04/20/23 Rx prostate complete 1 tab PO HS 03/10/23 04/20/23 History magnesium oxide 500 mg tablet 500 mg PO QAM 03/28/23 04/20/23 History lidocaine 5 % topical patch 1 patch topical DAILY 04/01/23 04/20/23 History nystatin 100,000 unit/gram topical 1 applic topical BID 04/01/23 04/20/23 H istory powder oxycodone 5 mg tablet 5 mg PO TID PRN pain #14 tabs 04/14/23 04/20/23 Rx baclofen 20 mg tablet 60 mg PO BID #540 tabs 04/17/23 04/20/23 Rx gabapentin 300 mg capsule 300 mg PO Q12H #60 caps 04/17/23 04/20/23 Rx oxybutynin chloride 5 mg tablet 10 mg PO BID #360 tabs 04/17/23 04/20/23 Rx baclofen 20 mg tablet 60 mg PO DAILY 1 month #90 tabs 04/23/23 Rx baclofen 20 mg tablet 80 mg PO PM 1 month #120 tabs 04/23/23 Rx methocarbamol 500 mg tablet 500 mg PO BID #60 tabs 04/23/23 Rx polyethylene glycol 3350 17 gram 17 g PO DAILY #30 ea 04/25/23 Rx oral powder packet (Miralax) sodium phosphates 19 gram-7 132 ml DC Q48H #133 mL 04/25/23 Rx gram/118 mL enema (Enema Disposable) Hospital Stay Data Consultations 04/20/23 15:04 ED Decision to Admit Stat 04/21/23 12:25 Consult Neurology Routine 04/21/23 12:33 Consult Urology Routine Diagnostic Imagining Performed 04/20/23 07:40 CT abd pelvis IV con only Stat Pending Results Patient Have Any Pending Studies at Discharge: No Discharge Instructions Given to Patient (Per Discharging Provider) You were admitted with uncontrolled bladder spasms and had improvement with increased dose of baclofen, and the addition of Robaxin. You are in need of PT/OT due to your deconditioning from multiple lengthy recent hospital stays. Please keep your scheduled follow up appointment in Urology for catheter exchange on 05/12/23 and your appt with Dr. Temple in Urology in August. Total Time Total Time Spent Total Time Spent (In Minutes): 35 min Coding Level of Care Code 01190 INP/OBS DISCH >30 MIN Diagnoses Bladder spasms N32.89 Neurogenic bladder N31.9 Paraplegia G82.20 Paroxysmal atrial fibrillation I48.0 GERD (gastroesophageal reflux disease) K21.9 Autonomic dysreflexia G90.4 Constipation K59.00
== END 2023-04-25 17:08 | DRG 699 ==
LOC: 2S 06:33 → ED 06:33 → SUATTDRO 14:38 → 2S 18:17 → SUATTDRO 04-21 22:50